=== PATIENT | female | born 1980 | race Caucasian/White ===

== ENCOUNTER → 2017-06-27 17:14 | Outpatient (CLI) | payer BC, SELFPAY ==
[2017-06-27 19:07] LABS: Chlamydia Trachomatis by PCR Negative (Negative); Neisserai gonorrhoeae by PCR Negative (Negative); Probe Check PASS; Sample Adequacy Control PASS; Specimen Processing Control PASS
== END ==
PROVIDERS: Visit Provider Obstetrics & Gynecology
DX: Z34.90 Encounter for supervision of normal pregnancy, unspecified, unspecified trimester (principal)
CPT/HCPCS: 87086; 87088; 87491; 87591

== ENCOUNTER → 2017-07-24 12:13 | Outpatient (CLI) | payer BC, SELFPAY ==
[2017-07-24 14:26] LABS: Absolute Lymphocyte Count 2.11 X10^3/ul (0.83-4.51); Absolute Neutrophil Count 6.5 X10^3/uL (2.0-7.7); Basophil# 0.02 X10^3/uL; Basophil% 0.2 % (0-1); Eosinophil# 0.12 X10^3/uL; Eosinophils% 1.3 % (0-5); Hematocrit 40.7 % (37-47); Hemoglobin 13.6 g/dl (12.0-15.0); Lymphocyte # 2.11 X10^3/ul (4.0); Lymphocyte % 22.7 % (19-41); Mean Corp Hgb Conc 33.4 g/gl (32-36); Mean Corpuscular Volume 83.7 fL (81-99); Mean Platelet Vol. 10.4 fl (6.2-12.0); Monocyte# 0.49 X10^3/uL; Monocyte% 5.3 % (0-10); Neutrophil # 6.54 X10^3/uL (2.7-7.7); Neutrophil % 70.4 % (47-70); Platelet Count 285 K/mm3 (150-450); RBC Distribution Width CV 13.6 % (11.6-14.6); RBC Distribution Width SD 41.6 fl (35.1-43.9); Red Blood Count 4.86 M/mm3 (4.2-5.4); White Blood Count 9.3 K/mm3 (4.4-11.0)
[2017-07-24 14:27] LABS: POSITIVE COUNT NO; POSITIVE DIFFERENTIAL NO; POSITIVE MORPHOLOGY NO
[2017-07-25 09:47] LABS: HIV - WCH Non-Reactive (Nonreactive); Rubella IgG 70.6 IU/mL
[2017-07-25 12:13] LABS: HEPATITIS B SURFACE AG Negative (Negative)
[2017-07-27 03:47] LABS: Rapid Plasmin Reagin (RPR) NONREACTIVE (NONREACTIVE)
== END ==
PROVIDERS: Visit Provider Obstetrics & Gynecology
DX: Z34.90 Encounter for supervision of normal pregnancy, unspecified, unspecified trimester (principal)
CPT/HCPCS: 36415; 85025; 86592; 86703; 86762; 86850; 86900; 87340

== ENCOUNTER → 2017-08-31 15:33 | Outpatient (CLI) | payer BC, SELFPAY ==
--- NOTE | 2017-08-31 15:37 | US_ITS ---
STUDY: SECOND AND THIRD TRIMESTER OBSTETRICAL ULTRASOUND REASON FOR EXAM: Female, 37 years old. For anatomy. LMP: PARIS: 01/22/2018 TECHNIQUE: Transabdominal PRIOR ULTRASOUND: None. FINDINGS: There is a single intrauterine fetus. The fetus is in a transverse lie with the head on the maternal right side. There is demonstrated cardiac activity with a heart rate of 153 bpm. There is a normal amniotic fluid volume. The largest amniotic fluid pocket measures 3.9 x 3.6 cm. The placenta is anterior in location and is not low lying. There are Grade 0 placental changes. The cervix measures 4.6 cm in length. The bilateral adnexal regions are visualized BIOMETRY: BPD: 4.5 cm: 19 weeks, 4 days HC: 17.1 cm: 19 weeks, 5 days AC: 14.8 cm: 20 weeks, 1 days FL: 3.3 cm: 20 weeks, 2 days CI: 73% FL/BPD: 74% FL/AC: 22% HC/AC: 1.15 age by current US: 20 weeks, 0 days. PARIS by current US: 01/18/2018. Estimated weight: 333 grams, +/- 49 grams, 84 %. Age by provided PARIS: 19 weeks, 3 days. PARIS : . ANATOMY: Visualized. Gender: Female Cranium: lateral ventricles. choroid plexus. Posterior fossa/cisterna magna and cerebellar is not visualized due to position. face, nose and lips. Chest: 4-chamber heart. Abdomen/Pelvis: diaphragm. stomach. abdominal wall. cord insertion. 3 vessel cord. kidneys. bladder. Spine: cervical spine. thoracic spine. lumbar spine. sacrum. Extremities: bilateral upper extremities. bilateral lower extremities. US/OB Anatomy Scan IMPRESSION: 1. Single alive intrauterine line seen in a transverse position. 2. Estimated gestational age by current ultrasound: 20 weeks 0 day and PARIS: 01/18/2018. Based on clinical dates gestational age: 19 weeks 3 days and PARIS: 01/22/2018. 3. EFW: 333 g. 4. Unremarkable visualized anatomy. Electronically Signed: Suzi Mena MD at 10:44 EDT Tel , Service support ,
== END ==
PROVIDERS: Visit Provider Nurse Practitioner Women's Health
DX: Z34.90 Encounter for supervision of normal pregnancy, unspecified, unspecified trimester (principal)
CPT/HCPCS: 76805

== ENCOUNTER → 2017-09-28 11:14 | Outpatient (CLI) | payer BC, SELFPAY | PROVIDERS: Visit Provider Nurse Practitioner Women's Health | DX: Z34.90 Encounter for supervision of normal pregnancy, unspecified, unspecified trimester (principal) | CPT/HCPCS: 76816 ==

== ENCOUNTER → 2017-11-02 11:12 | Outpatient (CLI) | payer BC, SELFPAY ==
[2017-11-02 11:40] LABS: Absolute Lymphocyte Count 2.25 X10^3/ul (0.83-4.51); Absolute Neutrophil Count 8.2 X10^3/uL (2.0-7.7); Basophil# 0.03 X10^3/uL; Basophil% 0.3 % (0-1); Eosinophil# 0.19 X10^3/uL; Eosinophils% 1.7 % (0-5); Hematocrit 38.4 % (37-47); Hemoglobin 12.9 g/dl (12.0-15.0); Lymphocyte # 2.25 X10^3/ul (4.0); Lymphocyte % 19.8 % (19-41); Mean Corp Hgb Conc 33.6 g/gl (32-36); Mean Corpuscular Volume 86.3 fL (81-99); Monocyte# 0.68 X10^3/uL; Neutrophil # 8.17 X10^3/uL (2.7-7.7); Neutrophil % 71.6 % (47-70); POSITIVE COUNT NO; POSITIVE DIFFERENTIAL NO; POSITIVE MORPHOLOGY NO; Platelet Count 299 K/mm3 (150-450); RBC Distribution Width CV 13.8 % (11.6-14.6); RBC Distribution Width SD 42.8 fl (35.1-43.9); Red Blood Count 4.45 M/mm3 (4.2-5.4); White Blood Count 11.4 K/mm3 (4.4-11.0)
[2017-11-02 11:47] LABS: Glucose Challenge Gest 1H 50g 96 mg/dL (70-140)
== END ==
PROVIDERS: Visit Provider Obstetrics & Gynecology
DX: Z34.90 Encounter for supervision of normal pregnancy, unspecified, unspecified trimester (principal)
CPT/HCPCS: 36415; 82950; 85025

== ENCOUNTER 2017-12-19 10:00 | Outpatient (CLI) | payer BC, SELFPAY ==
[2017-12-19 10:27] LABS: Absolute Lymphocyte Count 1.88 X10^3/ul (0.83-4.51); Absolute Neutrophil Count 7.7 X10^3/uL (2.0-7.7); Basophil# 0.02 X10^3/uL; Basophil% 0.2 % (0-1); Eosinophil# 0.14 X10^3/uL; Eosinophils% 1.4 % (0-5); Hematocrit 42.3 % (37-47); Hemoglobin 13.9 g/dl (12.0-15.0); Lymphocyte # 1.88 X10^3/ul (4.0); Lymphocyte % 18.3 % (19-41); Mean Corp Hgb Conc 32.9 g/gl (32-36); Mean Corpuscular Hgb 28.8 pg (27.0-32.0); Mean Corpuscular Volume 87.6 fL (81-99); Mean Platelet Vol. 10.6 fl (6.2-12.0); Monocyte% 4.9 % (0-10); Neutrophil # 7.72 X10^3/uL (2.7-7.7); POSITIVE COUNT NO; POSITIVE DIFFERENTIAL NO; POSITIVE MORPHOLOGY NO; Platelet Count 271 K/mm3 (150-450); RBC Distribution Width CV 13.3 % (11.6-14.6); RBC Distribution Width SD 42.7 fl (35.1-43.9); Red Blood Count 4.83 M/mm3 (4.2-5.4); White Blood Count 10.3 K/mm3 (4.4-11.0)
[2017-12-19 10:49] LABS: Protein, Urine (Random) < 6.0 mg/dL (<11.9)
[2017-12-19 10:50] LABS: ALB/GLOB Ratio 0.6 RATIO (0.9-2.4); AST(SGOT) 12 U/L (15-37); Alanine Aminotransfer ALT/SGPT 15 U/L (13-56); Albumin, Serum 2.7 g/dL (3.2-5.0); Alkaline Phosphatase 110 U/L (45-117); Anion Gap 9 (5-15); BUN 7 mg/dL (7-18); BUN/Creat Ratio 10.8 RATIO (10-20); Calcium,Total 8.8 mg/dL (8.5-10.1); Chloride 101 mmol/L (98-107); Creatinine, Serum 0.65 mg/dL (0.55-1.02); EST Glomerular Filtration Rate 109 mL/min (>60); Est Glom Filt Rate - Afr Amer 132 mL/min (>60); Globulin 4.2 g/dL (2.2-4.2); Glucose 95 mg/dL (74-106); LDH 161 U/L (84-246); Potassium 3.8 mmol/L (3.5-5.1); Protein, Total 6.9 g/dL (6.4-8.2); Sodium Level 137 mmol/L (136-145); Uric Acid 4.2 mg/dL (2.6-6.0)
[2017-12-19 11:17] VITALS: BMI 37.5
--- NOTE | 2017-12-21 17:22 | OB.TRI.HP_ITS ---
- Problem List (1) Elevated blood pressure affecting in third trimester, antepartum Status: Acute (2) Status: Acute Qualifiers: Comment: genetic, carrier, and ntd screening declined. anatomy us normal. (3) History of delivery, currently Status: Acute Comment: h/o ltcs then 4 successful VBACs, plan this delivery (4) Supervision of normal Status: Acute Qualifiers: Comment: PRR 01/22/18 girl PC Mariano Vidal Cole, Sawyer, Magdy Jair History of Present Illness Date of Service: 12/19/17 Was patient seen by the physician?: No Reason For Visit: R/O PRE E Date of Service: 12/19/17 History of Present Illness: elevated bp Allergies Iodinated Contrast- Oral and IV Dye [Iodinated Contrast Media - IV Dye] Allergy (Verified 12/19/17 11:20) Unknown naproxen sodium [From Aleve] Allergy (Verified 12/19/17 11:20) Unknown unknown reaction to Aleve - Pertinent Past Medical History Medical History: Past Medical History (Last Reviewed 12/19/17 @ 10:29 by Roseline Perez) Anxiety with depression Surgical History: Past Surgical History (Last Reviewed 12/03/17 @ 11:11 by Vicky Chung) delivery delivered H/O dilation and curettage Laboratory Studies: Laboratory Tests 12/19/17 12/19/17 12/19/17 Range/Units 10:12 10:04 10:04 WBC 10.3 (4.4-11.0) K/mm3 RBC 4.83 (4.2-5.4) M/mm3 Hgb 13.9 (12.0-15.0) g/dl Hct 42.3 (37-47) % MCV 87.6 (81-99) fL MCH 28.8 (27.0-32.0) pg MCHC 32.9 (32-36) g/gl RDW 13.3 (11.6-14.6) % RDW Differential 42.7 (35.1-43.9) fl Plt Count 271 (150-450) K/mm3 MPV 10.6 (6.2-12.0) fl Immature Gran % (Auto) 0.200 (0.0-0.9) % Neut % (Auto) 75.0 H (47-70) % Lymph % (Auto) 18.3 L (19-41) % [place] % (Auto) 4.9 (0-10) % Eos % (Auto) 1.4 (0-5) % Baso % (Auto) 0.2 (0-1) % Absolute Neuts (auto) 7.7 (2.0-7.7) X10^3/uL Absolute Lymphs (auto) 1.88 (0.83-4.51) X10^3/ul Total Counted Not Reportable Sodium 137 (136-145) mmol/L Potassium 3.8 (3.5-5.1) mmol/L Chloride 101 (98-107) mmol/L Carbon Dioxide 27.0 (21.0-32.0) mmol/L Anion Gap 9 (5-15) BUN 7 (7-18) mg/dL Creatinine 0.65 (0.55-1.02) mg/dL Est GFR (MDRD) Af Amer 132 (>60) mL/min Est GFR (MDRD) Non-Af 109 (>60) mL/min BUN/Creatinine Ratio 10.8 (10-20) RATIO Glucose 95 (74-106) mg/dL Uric Acid 4.2 (2.6-6.0) mg/dL Calcium 8.8 (8.5-10.1) mg/dL Total Bilirubin 0.30 (0.20-1.00) mg/dL AST 12 L (15-37) U/L ALT 15 (13-56) U/L Alkaline Phosphatase 110 (45-117) U/L Lactate Dehydrogenase 161 (84-246) U/L Total Protein 6.9 (6.4-8.2) g/dL Albumin 2.7 L (3.2-5.0) g/dL Globulin 4.2 (2.2-4.2) g/dL Albumin/Globulin Ratio 0.6 L (0.9-2.4) RATIO U Random Total Protein < 6.0 (<11.9) mg/dL Urine Creatinine 64.70 (NO RANGE EST.) mg/dL Protein/Creatinin Ratio TNP NST - FHR Rate Baby A Baseline: 130 Variability:: Moderate Accelerations:: 15 x 15 Decelerations:: None NST Reactive:: Yes FHR Category:: Category I Uterine Activity:: no regular ctx Impression/Plan elevate dbps- repeat WNL normal labs dc home
== END 2017-12-19 12:30 | disposition home or self-care (01) ==
LOC: PAVLAB 10:01 → WPOUT 11:08 → WP 11:09
PROVIDERS: Nurse Practitioner Women's Health; Referring Provider Obstetrics & Gynecology; Visit Provider Obstetrics & Gynecology
DX: O16.9 Unspecified maternal hypertension, unspecified trimester (principal); Z3A.00 Weeks of gestation of pregnancy not specified
CPT/HCPCS: 36415; 59025; 59050; 80053; 82570; 83615; 84156; 84550; 85025; 99218; G0378

== ENCOUNTER → 2017-12-24 11:45 | Outpatient (CLI) | payer BC, SELFPAY ==
[2017-12-24 11:31] VITALS: BMI 37.4
[2017-12-24 12:03] LABS: Absolute Lymphocyte Count 1.83 X10^3/ul (0.83-4.51); Absolute Neutrophil Count 6.5 X10^3/uL (2.0-7.7); Basophil# 0.02 X10^3/uL; Basophil% 0.2 % (0-1); Eosinophils% 1.1 % (0-5); Hematocrit 41.1 % (37-47); Hemoglobin 13.6 g/dl (12.0-15.0); Lymphocyte # 1.83 X10^3/ul (4.0); Lymphocyte % 19.7 % (19-41); Mean Corp Hgb Conc 33.1 g/gl (32-36); Mean Corpuscular Hgb 28.8 pg (27.0-32.0); Mean Corpuscular Volume 86.9 fL (81-99); Mean Platelet Vol. 10.5 fl (6.2-12.0); Monocyte% 8.6 % (0-10); Neutrophil # 6.54 X10^3/uL (2.7-7.7); Neutrophil % 70.3 % (47-70); POSITIVE COUNT NO; POSITIVE DIFFERENTIAL NO; POSITIVE MORPHOLOGY NO; Platelet Count 270 K/mm3 (150-450); RBC Distribution Width CV 13.1 % (11.6-14.6); RBC Distribution Width SD 41.8 fl (35.1-43.9); Red Blood Count 4.73 M/mm3 (4.2-5.4); White Blood Count 9.3 K/mm3 (4.4-11.0)
[2017-12-24 12:21] LABS: ALB/GLOB Ratio 0.7 RATIO (0.9-2.4); AST(SGOT) 15 U/L (15-37); Alanine Aminotransfer ALT/SGPT 16 U/L (13-56); Albumin, Serum 2.7 g/dL (3.2-5.0); Alkaline Phosphatase 114 U/L (45-117); Anion Gap 7 (5-15); BUN 6 mg/dL (7-18); BUN/Creat Ratio 9.7 RATIO (10-20); Calcium,Total 8.6 mg/dL (8.5-10.1); Chloride 106 mmol/L (98-107); Creatinine, Serum 0.62 mg/dL (0.55-1.02); EST Glomerular Filtration Rate 116 mL/min (>60); Est Glom Filt Rate - Afr Amer 141 mL/min (>60); Glucose 79 mg/dL (74-106); LDH 147 U/L (84-246); Potassium 4.1 mmol/L (3.5-5.1); Protein, Total 6.7 g/dL (6.4-8.2); Sodium Level 137 mmol/L (136-145); Uric Acid 4.3 mg/dL (2.6-6.0)
[2017-12-24 12:31] LABS: Protein, Urine (Random) 8.9 mg/dL (<11.9); Protein:Creat Ratio 79 mg/g CRE (0-200)
== END ==
PROVIDERS: Referring Provider Nurse Practitioner Women's Health; Visit Provider Nurse Practitioner Women's Health
DX: O16.3 Unspecified maternal hypertension, third trimester (principal); Z3A.00 Weeks of gestation of pregnancy not specified
CPT/HCPCS: 36415; 80053; 82570; 83615; 84156; 84550; 85025

== ENCOUNTER → 2017-12-24 15:48 | Outpatient (CLI) | payer BC, SELFPAY ==
[2017-12-24 11:31] VITALS: BMI 37.4
--- NOTE | 2017-12-24 13:30 | US_ITS ---
STUDY: SECOND AND THIRD TRIMESTER OBSTETRICAL ULTRASOUND - LIMITED REASON FOR EXAM: Female, 37 years old. growth. LMP: January 22, 2018. PRIOR ULTRASOUND: August 31, 2017 and September 28, 2017. TECHNIQUE: Transabdominal TECHNICAL QUALITY: Adequate. FINDINGS: There is a single intrauterine fetus. The fetus is in a cephalic presentation. There is demonstrated cardiac activity with a heart rate of 133 bpm. There is a normal amniotic fluid volume. The largest amniotic fluid pocket measures 6.07 cm. The amniotic fluid index (MARILU) is 12.61 cm. The placenta is anterior in location and is not low lying. There are Grade 2 placental changes. The cervix is obscured. BIOMETRY: BPD: 9.26 cm: 37 weeks, 5 days HC: 33.76 cm: 38 weeks, 6 days AC: 33.14 cm: 37 weeks, 1 days FL: 7.24 cm: 37 weeks, 1 days Age by LMP: 35 weeks, 6 days. PAR[place] by LMP: January 22, 2018. age by prior US: 36 weeks, 3 days. PARIS by prior US: January 18, 2018. age by current US: 37 weeks, 5 days. PARIS by current US: January 09, 2018. Estimated weight: 3174 grams, +/- 463 grams, 87 percentile. US/OB Limited With Biometrics IMPRESSION: 1. Live single intrauterine of 37 weeks, 5 days. PARIS is January 09, 2018. This is 9 days ahead of the initial ultrasound. 2. EFW of 3174 g. 3. MARILU of 12.61 cm. 4. Anterior grade 2 placenta. 5. Vertex presentation. Electronically Signed: Preston Carpio DO at 17:07 EST Tel [phone], Service support ,
== END ==
PROVIDERS: Referring Provider Nurse Practitioner Women's Health; Visit Provider Nurse Practitioner Women's Health
DX: O16.3 Unspecified maternal hypertension, third trimester (principal); Z3A.00 Weeks of gestation of pregnancy not specified
CPT/HCPCS: 76816

== ENCOUNTER → 2018-01-02 16:40 | Outpatient (CLI) | payer BC, SELFPAY ==
[2018-01-02 11:23] VITALS: BMI 37.4
--- OUTSIDE RECORDS SUMMARY | 2018-02-28 02:44 | XMS RPT_ITS ---
:1980 Author Organization OHIP Support Name Relationship Address Phone SANDEE WEST Unavailable [address] + [place] [address] FAUSTINO ANTUNEZ Unavailable Unavailable + UE Unavailable Unavailable Unavailable SANDEE WEST Unavailable [address] + [place] [address] FAUSTINO ANTUNEZ Unavailable Unavailable + UE Unavailable Unavailable Unavailable SANDEE WEST Unavailable [address] + [place] [address] FAUSTINO ANTUNEZ Unavailable Unavailable + UE Unavailable Unavailable Unavailable SANDEE WEST Unavailable [address] + [place] [address] FAUSTINO ANTUNEZ Unavailable Unavailable + UE Unavailable Unavailable Unavailable SANDEE WEST Unavailable [address] + [place] [address] FAUSTINO ANTUNEZ Unavailable . + ., [place] . UE Unavailable Unavailable Unavailable SANDEE WEST Unavailable [address] + [place] [address] FAUSTINO ANTUNEZ Unavailable . + ., [place] . UE Unavailable Unavailable Unavailable SANDEE WEST Unavailable [address] + [place] [address] FAUSTINO ANTUNEZ Unavailable Unavailable + UE Unavailable Unavailable Unavailable SANDEE WEST Unavailable [address] + [place] [address] FAUSTINO ANTUNEZ Unavailable Unavailable + UE Unavailable Unavailable Unavailable SANDEE WEST Unavailable [address] + [place] [address] FAUSTINO ANTUNEZ Unavailable . + [place] [address] UE Unavailable Unavailable Unavailable LEO, SANDEE Unavailable [address] + [place] [address] FAUSTINO ANTUNEZ Unavailable Unavailable + UE Unavailable Unavailable Unavailable LEO, SANDEE Unavailable [address] + [place] [address] NAYMFAUSTINO BHAT Unavailable . + [place] [address] UE Unavailable Unavailable Unavailable LEO, SANDEE Unavailable [address] + [place] [address] FAUSTINO ANTUNEZ Unavailable . + [place] [address] UE Unavailable Unavailable Unavailable LEO, SANDEE Unavailable [address] + [place] [address] FAUSTINO ANTUNEZ Unavailable Unavailable + [place] [address] UE Unavailable Unavailable Unavailable LEO, SANDEE Unavailable [address] + [place] [address] FAUSTINO ANTUNEZ Unavailable . + [place] [address] UE Unavailable Unavailable Unavailable LEO, SANDEE Unavailable [address] + [place] [address] FAUSTINO ANTUNEZ Unavailable . + [place] [address] UE Unavailable Unavailable Unavailable LEO, SANDEE Unavailable [address] + [place] [address] FAUSTINO ANTUNEZ Unavailable . + [place] [address] UE Unavailable Unavailable Unavailable LEO, SANDEE Unavailable [address] + [place] [address] NAFAUSTINO FRY Unavailable . + [place] [address] UE Unavailable Unavailable Unavailable LEO, SANDEE Unavailable [address] + [place] [address] FAUSTINO ANTUNEZ Unavailable . + [place] [address] UE Unavailable Unavailable Unavailable LEO, SANDEE Unavailable [address] + [place] [address] FAUSTINO ANTUNEZ Unavailable . + [place] [address] UE Unavailable Unavailable Unavailable LEO SANDEE Unavailable [address] + [place] [address] FAUSTINO ANTUNEZ Unavailable Unavailable + [place] [address] UE Unavailable Unavailable Unavailable LEO, SANDEE Unavailable [address] + [place] [address] FAUSTINO ANTUNEZ Unavailable . + [place] [address] UE Unavailable Unavailable Unavailable LEO, SANDEE Unavailable [address] + [place] [address] FAUSTINO ANTUNEZ Unavailable Unavailable + [place] [address] UE Unavailable Unavailable Unavailable LEO, SANDEE Unavailable [address] + [place] [address] FAUSTINO ANTUNEZ Unavailable . + [place] [address] UE Unavailable Unavailable Unavailable LEO, SANDEE Unavailable [address] + [place] [address] UE Unavailable Unavailable Unavailable LEO, SANDEE Unavailable [address] + [place] [address] UE Unavailable Unavailable Unavailable Care Team Providers Name Role Phone KAITLYN FERRARO (BELLPERSON) Attending Unavailable ELISHA FRANCISCO (OD) Attending Unavailable CHARBEL CABRERA Referring Unavailable Marcanthony, Evelin Attending Unavailable Marcanthony, Evelin Attending Unavailable Marcanthony, Evelin Referring Unavailable Marcanthony, Evelin Attending Unavailable Marcanthony, Evelin Attending Unavailable Marcanthony, Evelin Referring Unavailable Primay Care Physicia, No Primary Care Unavailable Northbrook, Mary Attending Unavailable Primay Care Physicia, No Referring Unavailable Nuria, Mary Attending Unavailable Northbrook, Mary Referring Unavailable Primay Care Physicia, No Primary Care Unavailable Northbrook, Mary Attending Unavailable Northbrook, Mary Referring Unavailable Primay Care Physicia, No Primary Care Unavailable Marcanthony, Evelin Attending Unavailable Primay Care Physicia, No Referring Unavailable Primay Care Physicia, No Primary Care Unavailable Marcanthony, Evelni Attending Unavailable Primay Care Physicia, No Referring Unavailable Marcanthony, Evelin Attending Unavailable Primay Care Physicia, No Primary Care Unavailable Marcanthony, Veelin Attending Unavailable Primay Care Physicia, No Referring Unavailable Northbrook, Mary Attending Unavailable Primay Care Physicia, No Referring Unavailable Primay Care Physicia, No Primary Care Unavailable Nuria, Mary Consulting Unavailable Marcanthony, Evelin Attending Unavailable Marcanthony, Evelin Referring Unavailable Northbrook, Mary Attending Unavailable Primay Care Physicia, No Referring Unavailable Northbrook, Mary Attending Unavailable Primay Care Physicia, No Referring Unavailable Marcanthony, Evelin Attending Unavailable Marcanthony, Evelin Referring Unavailable Primay Care Physicia, No Primary Care Unavailable Northbrook, Mary Consulting Unavailable Marcanthony, Evelin Consulting Unavailable Northbrook, Mary Attending Unavailable Primay Care Physicia, No Referring Unavailable Nuria, Mary Attending Unavailable Nuria, Mary Referring Unavailable Primay Care Physicia, No Primary Care Unavailable Northbrook, Mary Attending Unavailable Nuria, Mary Referring Unavailable Primay Care Physicia, No Primary Care Unavailable Marcanthony, Evelin Attending Unavailable Primay Care Physicia, No Referring Unavailable Marcanthony, Evelin Attending Unavailable Primay Care Physicia, No Primary Care Unavailable Marcanthony, Evelin Referring Unavailable Marcanthony, Evelin Attending Unavailable Marcanthony, Evelin Referring Unavailable Primay Care Physicia, No Primary Care Unavailable Marcanthony, Evelin Admitting Unavailable Marcanthony, Evelin Admitting Unavailable Marcanthony, Evelin Attending Unavailable Marcanthony, Evelin Referring Unavailable Primay Care Physicia, No Primary Care Unavailable Marcanthony, Evelin Consulting Unavailable Marcanthony, Evelin Admitting Unavailable Marcanthony, Evelin Attending Unavailable Marcanthony, Evelin Referring Unavailable Primay Care Physicia, No Primary Care Unavailable Marcanthony, Evelin Consulting Unavailable Marcanthony, Evelin Admitting Unavailable Marcanthony, Evelin Attending Unavailable Marcanthony, Evelin Referring Unavailable Primay Care Physicia, No Primary Care Unavailable Marcanthony, Evelin Consulting Unavailable PROBLEMS PROBLEMS DATE TYPE CONDITION / CODE ATTENDING STATUS SOURCE 01/03/2018 Unknown Z34.90 - Marcanthony, Active [place] Encounter for Evelin [facility] normal , Repository unspecified, unspecified trimester / Z34.90(ICD-10) 01/02/2018 Unknown O34.219 - Marcanthony, Active [place] Maternal care for [facility] unspecified type Hospital scar from Repository previous delivery / O34.219(ICD-10) 01/02/2018 Unknown Z34.83 - Marcanthony, Active [place] Encounter for [facility] other normal Repository , third trimester / Z34.83(ICD-10) 01/02/2018 Unknown Z3A.35 - 35 weeks Marcanthony, Active [place] gestation of [facility] / Hospital Z3A.35(ICD-10) Repository 01/02/2018 Unknown O16.3 - Marcanthony, Active [place] Unspecified [facility] hypertension, Repository third trimester / O16.3(ICD-10) 11/16/2017 Unknown Z3A.30 - 30 weeks Marcanthony, Active [place] gestation of [facility] / Hospital Z3A.30(ICD-10) Repository 09/28/2017 Unknown Z34.82 - Marcanthony, Active [place] Encounter for [facility] other normal Repository , second trimester / Z34.82(ICD-10) 09/28/2017 Unknown Z3A.23 - 23 weeks Marcanthony, Active [place] gestation of [facility] / Hospital Z3A.23(ICD-10) Repository 07/24/2017 Unknown Z3A.14 - 14 weeks Marcanthony, Active [place] gestation of [facility] / Hospital Z3A.14(ICD-10) Repository 06/27/2017 Unknown Z34.81 - Marcanthony, Active [place] Encounter for [facility] other normal Repository , first trimester / Z34.81(ICD-10) 05/08/2017 Active Unknown / BUZZ, KAITLYN Active [facility] UNK(Unknown) (BELLPERSON) [facility] [place] Repository PROCEDURES PROCEDURES No Procedure Records FoundRESULTS RESULTS DISCHARGE INSTRUCTION Observed: 01/05/2018 Status: F Source: [place] 12:45 [facility] Medical Records Department [address] [place] [address] Instructions for Home/Discharge Instructions 01/05/18 0045 MR#: [id number] Acct: [id number] Name: JUSTYN WEST Rep #: [id number] : 1980 37 From: Evelin Hart MD PCP: Care Physician, No Primary Status: ADM IN Discharge Diet: No Restrictions Discharge Activity: Return to Normal Activity, May not drive while taking narcotic pain medications., May Shower May resume sexual activity in: 4-6 weeks Call your doctor if your incision/area has: Continuous Slow Oozing, Sudden Increased Bleeding, Increased Pain/ Swelling, Increased Redness, Foul Smelling Discharge Additional Instructions: If you experience any of the following, contact your healthcare provider. * Bleeding that soaks a pad every hour for 2 hours * Fever 100.4 or higher * Unrelieved incision or abdominal pain * Swelling, redness, discharge or bleeding from your incision or episiotomy site * Your incision begins to separate * Problems urinating (including inability to urinate or burning while urinating). * Visual changes * Severe headache * Flu-like symptoms * Pain or redness in one of both of your breasts * Pain, warmth, tenderness or swelling in your legs, especially the calf area * Frequent nausea and vomiting * Symptoms of depression or anxiety If you experience any of the following, call 911 or go to the nearest Emergency Room. * Chest pain * Problems breathing * Seizure activity * Partial or complete paralysis of a body part, slurred speech, weakness or drooping of the face, or a sudden inability to walk or hold your balance Allergies/Adverse Reactions: Allergies Iodinated Contrast- Oral and IV Dye [Iodinated Contrast Media - IV Dye] Allergy (Verified 01/02/18 11:22) Unknown naproxen sodium [From Aleve] Allergy (Verified 01/02/18 11:22) Unknown unknown reaction to Aleve Medications to take at Discharge Oxybutynin Chloride [Ditropan Xl] 10 mg PO DAILY 01/19/13 blood pressure monitor kit See Dose Instructions .ROUTE .MEDSUPPLY #1 ea 12/24/17 Sertraline HCl [Zoloft] 50 mg PO QDAY 01/03/18 Please Follow Up With: Evelin Hart MD - [phone] When: Call to make an appointment with your doctor in 6 weeks. If you had elevated Blood pressure or 4th degree laceration you will need to be seen in 2 weeks. Primary Care Physician: Care Physician,No Primary [Primary Care Provider] - Test Results: Test results from this visit will be discussed in further detail at your follow-up appointment, if applicable. 01/05/18 0045 <Electronically signed by Evelin Hart MD> Date Evelin Hart MD CC: No Primary Care Physician PLACENTA Observed: 01/04/2018 Status: F Source: [place] 1:06 AM [facility] [place] Patient: JUSTYN WEST : 1980 (37/F) Acct Num: [id number] Phys: Evelin Hart MD Unit Num: [id number] Loc: WP [id number] Specimen: [id number] Received: 01/04/1812 Spec Type: PLACENTA TISSUES 1 TISSUES: Placenta, NOS GROSS DESCRIPTION SPECIMEN: PLACENTA / CLINICAL INFORMATION: A. Weight: B. Gestational Age: C. Sex: PLACENTAL WEIGHT (POST FIXATION): 447 gm PLACENTAL DIMENSIONS: 17 x 16 x 3 cm PLACENTAL SHAPE: Usual ovoid PLACENTAL WEIGHT FOR GESTATIONAL AGE: Within 10-99th percentile MEMBRANES - Present A. Insertion: Marginal B. Site of rupture from edge: At edge of placental disc C. Color of membrane: Quiroz-sims D. Abnormalities: None UMBILICAL CORD - Present A. Color: Quiroz-sims B. Insertion: Eccentric C. Length: 32 cm D. Diameter: 1.6 cm E. Number of vessels: Three F. Abnormalities: None PLACENTAL DISC - Present A. Color of surface: Quiroz-sims B. surface abnormalities: None C. Maternal cotyledons: Intact with minimal tears D. Attached retro placental clot: No clot E. Cut surface: Dark red and spongy F. Lesions: Serial sections reveal a reddish-quiroz lesion measuring 1.5 cm in greatest dimension. G. Separate clot: Absent SECTIONS SUBMITTED: 1. Membrane roll and umbilical cord ( end notched) 2. Placental disc, and maternal surfaces, lesion 3. Placental disc, and maternal surfaces 4. Placental disc, and maternal surfaces AM:maribell 01/07/18 TC:2 CPT: 25112 HEADER OPERATION: Vaginal delivery PRE-OP DIAGNOSIS: Abnormal placental appearance TISSUE SUBMITTED: Placenta MICROSCOPIC DESCRIPTION Slides are reviewed. MICROSCOPIC DIAGNOSIS Gill placenta (447 gm): Umbilical cord - trivascular with no inflammation. Placental membranes - no significant pathologic change. Placental disc - organizing intraparenchymal hemorrhage, Sharif-Michel change and intravillous congestion. Mildly increased intraparenchymal and fibrin plaques and focal acute deciduitis. AM:maribell 01/08/18 Signed Onofre Darwin 01/08/18 <signature on file> Performed By: #### PPLAC #### [facility] [address] [place], [address] OPERATIVE REPORT Observed: 01/04/2018 Status: F Source: [place] 1:05 [facility] [place] [facility] Medical Records Department [address] [place] [address] Operative Report 01/04/18 0103 MR#: [id number] Acct: [id number] Name: JUSTYN WEST Rep #: [id number] : 1980 37 From: Evelin Hart MD PCP: Care Physician, No Primary Status: ADM IN Location: DR653-1 - Problem List (1) SROM (spontaneous rupture of membranes) Status: Acute (2) Status: Acute Qualifiers: Comment: genetic, carrier, and ntd screening declined. anatomy us normal. (3) History of delivery, currently Status: Acute Comment: h/o ltcs then 4 successful VBACs, plan this delivery (4) Supervision of normal Status: Acute Qualifiers: Comment: PRR 01/22/18 girl PC Mariano Vidal Cole, Sawyer, Rafe Sandee Vaginal Delivery Maternal Presentation: Active Labor, Spontaneous Rupture of Membranes 37-year-old at 37 weeks 2 days presents with spontaneous rupture of membranes in active labor. Amniotic Membrane Rupture Type: Spontaneous at home Amniotic Fluid Description: Clear Final [place]IS: 01/22/18 Gestational age: 37 Weeks and 3 Days Date of Procedure: 01/04/18 Pre-Operative Diagnosis: In active labor Post-Operative Diagnosis: Same Surgery/ Procedure Performed: Spontaneous Vaginal Delivery Type of Anesthesia: Epidural Description of Procedure: Patient began pushing and delivered the head in the THAO presentation. The head was delivered atraumatically. The anterior and posterior shoulders delivered without complication followed by the rest of the infant and the was placed on the maternal abdomen. Delayed cord clamping was employed for approximately 60 seconds. Cord was clamped and cut and gentle traction was applied to the cord and the placenta delivered spontaneously immediately following it was noted to be intact with three-vessel cord. The perineum and vagina were inspected and noted to have no laceration. EBL was 200 cc. Patient and infant tolerated delivery well. Presentation: THAO Placental Delivery Description: Spontaneous Placenta Disposition: [facility] Cord Vessel Description: 3 Vessels Cord Entanglement: None Estimated Blood Loss: 200 A gender: Female Episiotomy Description: None Laceration: None Medications given after delivery: IV Pitocin Complications: None 01/04/18 010 <Electronically signed by Evelin Hart MD> Date Evelin Hart MD CC: No Primary Care Physician; Evelin Hart MD Signed PATHOLOGY SPECIMEN OB Collected: 01/04/2018 Status: F Source: [place] 12:51 AM [facility] [place] Order Comment: Reason for Laboratory Test Placenta for lab studies Send Specimen For (Specify): Studies @ [facility] Lab:Routine Time of Procedure: 105 Date of Procedure: 01/04/18 Reason specimen being sent to pathology (Hx/complications): abnormal placental appearance Type of specimen: Placenta Type of procedure performed: Other TYPE CODE TESTS RESULT OUT OF RANGE REFERENCE UNITS LAB L350.1800 SEE Normal PATH. PATHOLOGY Spec. OB REPORT Result Comment: Specimen submitted to Anatomical Pathology Department for testing. Performed By: #### L350.1800 #### [facility] [address] [place], [address] HISTORY AND PHYSICAL Observed: 01/03/2018 Status: F Source: [place] EXAM 9:19 PM [facility] [place] [facility] Medical Records Department [address] [place] [address] History and Physical 01/03/182112 MR#: [id number] Acct: [id number] Name: JUSTYN WEST Rep #: [id number] : 1980 37 From: Evelin Hart MD PCP: Care Physician, No Primary Status: ADM IN Y Location: [place] [id number] - Problem List (1) SROM (spontaneous rupture of membranes) Status: Acute (2) Status: Acute Qualifiers: Comment: genetic, carrier, and ntd screening declined. anatomy us normal. (3) History of delivery, currently Status: Acute Comment: h/o ltcs then 4 successful VBACs, plan this delivery (4) Supervision of normal Status: Acute Qualifiers: Comment: PRR 01/22/18 girl PC Mariano Vidal Cole, Sawyer, Magdy Sandee History Date of Admission: 01/03/18 Final [place]: 01/22/18 Gestational age: 37 Weeks and 2 Days History of this : This is a 37 year-old, at 37 weeks gestational age presents with SROM clear fluid. she has had irregular contractions. she has had a healthy uncomplicated . she has a history of 4 successful vbacs. Medical History: Medical History (Last Reviewed 01/02/18 @ 11:23 by Roseline Perez) Anxiety with depression F41.8 Surgical History: Surgical History (Last Reviewed 01/02/18 @ 11:23 by Roseline Perez) delivery delivered O82 H/O dilation and curettage Z98.890 Allergies Iodinated Contrast- Oral and IV Dye [Iodinated Contrast Media - IV Dye] Allergy (Verified 01/02/18 11:22) Unknown naproxen sodium [From Aleve] Allergy (Verified 01/02/18 11:22) Unknown unknown reaction to Aleve Home Medications: Home Medications Oxybutynin Chloride [Ditropan Xl] 10 mg PO DAILY 01/19/13 blood pressure monitor kit See Dose Instructions .ROUTE .MEDSUPPLY #1 ea 12/24/17 Sertraline HCl [Zoloft] 50 mg PO QDAY 01/03/18 Smoking Status: Former smoker Alcohol: None Number of Fetus(es): 1 Heart Tracing: fht 140s moderate variability reactive no decels. cat I tracing TOCO Analysis: q 3-6 History Past Pregnancies: first one was a c section and 4 subsequent vbacs Labs: Mom's Problem List Problem Status Onset Code SROM (spontaneous rupture of membranes) Acute Mom's Labs AND Results WBC 12.0 H RBC 4.92 Hgb 14.3 Hct 42.0 MCV 85.4 MCH 29.1 MCHC 34.0 RDW 13.1 RDW Differential 40.8 WBC RBC Hgb Hct Course Did the patient receive Yes care? Labs Blood Type: O Current Obstetrical History Gestational Diabetes No Incompetent Cervix No Infertility No IUGR No Macrosomia No Hypertension/Pre-eclampsia Yes: lab test normal Placenta Previa/Abruption No PTL/PROM No Uterine anomaly No Oligohydramnios No Polyhydramnios No Multiple gestation No Past Medical History Asthma No Diabetes No Hypertension No Heart disease No Mitral valve prolapse No Neurologic/Seizure disorder/ No Migraines Kidney disease No Liver disease No Varicosities No Clotting disorders/Hx of DVT No Thyroid Dysfunction No Other medical diseases No Psychiatric disorders Yes: anxiety, depression Major trauma No Abnormal PAP smear No Sleep apnea No Mammogram in the last 2 years No Social History Marital Status: Alleged father [place] Hx Smoking Yes Smoking Status Former smoker Expected Delivery Method: Review of Systems Constitutional: Denies: Fever, Malaise Eyes: Denies: Blurred vision, Vision Change HEENT: Denies: Head Aches, Visual Changes Cardiovascular: Denies: Chest Pain, Palpitations Respiratory: Denies: Cough, Shortness of Breath, Wheezing Gastrointestinal: Denies: Abdominal Pain, Diarrhea, Nausea, Vomiting Genitourinary: Denies: Dysuria, Hematuria Musculoskeletal: Denies: Joint Pain, Muscle pain Skin: Denies: Lesions, Rash Neurological: Denies: Blurred vision, Focal weakness, Headaches Psychiatric: Denies: Anxiety, Depression Endocrine: Denies: Heat/ Cold Intolerance Hematologic/ Lymphatic: Denies: Easy Bruising, Easy Bleeding Physical Exam General: Alert, Cooperative, No apparent distress HEENT: Atraumatic, Normocephalic. Negative for: Thyromegaly, Lymphadenopathy Cardiovascular: Regular rate Lungs: Normal air movement Abdomen: Soft, Non Tender, Gravid Neurological: Deep Tendon Reflexes 2+/4 and Symmetrical, Neuro grossly intact. Negative for: Clonus [employer] SALES COORDINATOR: Normal external genitalia. Negative for: Vulvar lesions Estimated gestational size: Appropriate for gestational size Presentation: Cephalic Assessment/Plan All Active Problems (Last Reviewed 01/02/18 @ 11:23 by Roseline Perez) Elevated blood pressure affecting in third trimester, antepartum (Acute) SROM (spontaneous rupture of membranes) (Acute) (Acute) History of delivery, currently (Acute) Supervision of normal (Acute) This is a 37 year-old, at 37 weeks gestational age presents IAL srom clear fluid plan Pit now for minimal cervical change in several hours iupc placed epi being placed gbs positive start pcn 01/03/182118 <Electronically signed by Evelin Hart MD> Date Evelin Hart MD Cosigner Signature: Date (if applicable) CC: No Primary Care Physician; Evelin Hart MD Signed CBC-COMPLETE BLOOD CNT Collected: 01/03/2018 Status: F Source: [place] NO DIFF 4:45 PM [facility] [place] TYPE CODE TESTS RESULT OUT OF RANGE REFERENCE UNITS LAB L100.1000 4.4-11.0 K/mm3 High WBC 12.0 LAB L100.1200 4.2-5.4 M/mm3 Normal RBC 4.92 LAB L100.1300 12.0-15.0 g/dl Normal HGB 14.3 LAB L100.1400 37-47 % Normal HCT 42.0 LAB L100.1500 81-99 fL Normal MCV 85.4 LAB L100.1600 27.0-32.0 pg Normal MCH 29.1 LAB L100.1700 32-36 g/gl Normal MCHC 34.0 LAB L100.1810 11.6-14.6 % Normal RDW CV 13.1 LAB L100.1820 35.1-43.9 fl Normal RDW SD 40.8 LAB L100.1900 150-450 K/mm3 Normal PLT 269 LAB L100.2000 6.2-12.0 fl Normal MPV 10.6 Performed By: #### L100.0500 #### [facility] [address] [place], [place], [id number] TYPE AND SCREEN Collected: 01/03/2018 Status: F Source: [place] 4:45 PM [facility] [place] Order Comment: Reason for Type AND Screen/Red Cells: ROUTINE TYPE CODE TESTS RESULT OUT OF RANGE REFERENCE UNITS LAB B10.0800 O Normal BLOOD TYPE GEL POSITIVE LAB B100.4000 Normal Antibody NEGATIVE Screen Performed By: #### B101.7450 #### [facility] [address] [place], [address] GROUP B STREP DNA Collected: 01/03/2018 Status: F Source: [place] BY PCR 4:45 PM [facility] [place] TYPE CODE TESTS RESULT OUT OF REFERENCE UNITS RANGE LAB L8200.0100 Negative High GBS TEST POSITIVE RESULT Result Comment: Penicillin is the recommended antibiotic for the treatment of Group B Streptococcal disease. In case of penicillin allergy, susceptibility testing for Clindamycin and Erythromycin is suggested by request. Performed By: #### L8200.0000 #### [facility] [place], [place], [id number] (ROM) RUPTURE OF Collected: 01/03/2018 Status: F Source: [place] [facility] 3[facility]40 PM [facility] [facility] REPOS[facility] TYPE CODE TESTS RESULT OUT OF REFERENCE UNITS RANGE LAB L205.1310 Negative High ROM POSITIVE Result Comment: Amniotic fluid present indicates rupture of Membranes. RESULTS CALLED TO MONIQUE 01/03/18 Joy Still. REPORT READ BACK BY SAME . Performed By: #### L205.1000 #### [facility] [address] [place], [place], [address] POLICY ANALYST OFFICE VISIT Observed: 01/02/2018 Status: F Source: [place] REPORT 11:52 AM [facility] [place] [facility] [place] [address] [place], [place] [address] OFFICE VISIT Date of Service: 01/02/18 MR#: [id number] Acct: [id number] Name: JUSTYN WEST Rep #: [id number] : 1980 Provider: Evelin Hart MD Age/Sex: 37/F Location: [facility] [place].[facility] Status: Signed Intake Vital Signs01/02/18 Body Mass Index (BMI) 37.4 01/02/18 Height 5 ft 4 in 01/02/18 Weight: 222 lb 4 oz 01/02/18 Body Mass Index (BMI) 38.1 01/02/18 Blood Pressure 110/84 H Intake Visit Reasons: 37 WEEK OB Chief Complaint: est ob Equipment Specialist Required: No Is patient in pain?: No Allergies Iodinated Contrast- Oral and IV Dye [Iodinated Contrast Media - IV Dye] Allergy (Verified 01/02/18 11:22) Unknown naproxen sodium [From Aleve] Allergy (Verified 01/02/18 11:22) Unknown Medications Oxybutynin Chloride [Ditropan Xl] 10 mg PO DAILY 01/19/13 [History Confirmed 01/02/18] sertraline 50 mg tablet 50 mg PO QDAY #30 tab 08/07/17 [Rx Confirmed 01/02/18] blood pressure monitor kit See Dose Instructions .ROUTE .MEDSUPPLY #1 ea 12/24/17 [Rx Confirmed 01/02/18] Last Menstral Period: 04/17/17 Zika: Zika virus screening: Negative : No PFSH PFSH Medical History Anxiety with depression (Acute) Surgical History delivery delivered (Acute) H/O dilation and curettage (Acute) Family History Unknown Diabetes Social History Smoking Status: Never smoker alcohol intake: never substance use type: does not use caffeine: Yes what type of physical activity do you participate in: walking seatbelt use: always do you feel safe at home: Yes additional social history: Mega Lindsay Patient is a stay at home mom Pregancy History 8 Elective abortions Hx Para 5 Spontaneous abortions Past Pregnancies Del. DateName GA/Weeks Outcome Route Bth WeighInfant GeLabor LgtAnesthesiDel LocatProvider FOB t n h a n HPI 37 WEEK OB: Details: JUSTYN WEST is a 37 year old who presents for routine OB visit. OB Visit PARIS Calculator Estimated Delivery Date 01/22/18 Based on LMP (certain) 04/17/17 Current WG 37w 1d Number 1 Expected Delivery Route/Plan Specific Issue/Plans flu vaccine: declines tdap vaccine: decline LARC form signed: declines labor support person: Sandee pain management: epidural cut cord/dad catch: yes : yes PP control planned: [] special requests: [] Initial Weight: 190 lb Date Weight BP Urine PrFHR FuHt Pres MoCTX DilationFetal StVisit NoProviderComments E ot v te GA G Effac lucose ed Visit Notes Visit Date: 01/02/18 bps reveiwed and normal- asymptomatic reviewed precautions no vb lof good fm nor egular ctx Evelin Hart MD on 01/02/18 Visit Date: 12/24/17 Headache but not enough to use tylenol. No VB, LOF. Good FM. No vision changes today. Much stress Mary Quiñones NP-C on 12/24/17 Visit Date: 12/21/17 Doing well. Off and on headache without vision changes. Good FM. No VB, LOF Mary Quiñones NP-C on 12/21/17 Visit Date: 12/19/17 Work in for elevated BP at home with headache X 3 days. Good FM, No VB, LOF Mary Quiñones NP-C on 12/19/17 Visit Date: 12/03/17 No Vb, LOF. Doing well Mary Quiñones NP-C on 12/03/17 Visit Date: 11/16/17 no vb lof good fm no regular ctx Evelin Hart MD on 11/16/17 Visit Date: 11/02/17 no vb lof good fm no regualr ctx cbc gct today Evelin Hart MD on 11/03/17 Visit Date: 09/28/17 no vb lof good fm no regualr ctx. Evelin Hart MD on 09/28/17 Visit Date: 08/21/17 Doing well. No VB, LOF. Rare event of sudden pain upper left abdomen when touched. No lump. Doesn't happen often. EVER Ayala on 08/21/17 Visit Date: 07/24/17 no vb lof pastora Hart MD on 07/24/17 Visit Date: 06/27/17 No visit notes to display ACOG First Trimester First Trimester: Desire for , Alcohol, Tobacco Cessation, Illicit/Recreational Drug/Substance Use, Intimate Partner Violence, Barriers to care, Unstable Housing, Communication Barriers, Environmental/Work Hazards, Anticipated Course of Care, Toxoplasmosis Precations, Use of Any medications, Sexual activity, Exercise, Dental Care, Sauna/Hot tub use, Seat Belt use, Childbirth classes/Hospital facilities, , Travel, Indications for US and Screening for Aneuploidy Diagnostics Diagnostics Labs Hct 41.1 % (37-47) 12/24/17 Hgb 13.6 g/dl (12.0-15.0) 12/24/17 Obstetrics Ultrasound 12/24/17 Glucose 1 Hr 50 gm 96 mg/dL (70-140) 11/02/17 Details: HIV: Urine Culture: Sequential Screen: NIPT Screen: Results [id number] Office Urine Glucose Negative Last Edit by Roseline Perez on 01/02/18 11:25 Office Urine Protein Negative Last Edit by Roseline Perez on 01/02/18 11:25 Assessment AND Plan Problems 1. History of delivery, currently O34.219 h/o ltcs then 4 successful VBACs, plan this delivery 2. 35 weeks gestation of Z3A.35 genetic, carrier, and ntd screening declined. anatomy us normal. 3. Encounter for supervision of other normal in third trimester Z34.83 PRR 01/22/18 girl PC Young, Mariano, Cristi Toure, Magdy Sandee Plan movement and labor precautions reviewed. ACOG trimester education reviewed and updated. see problem list details for updated plan management information and see below for orders placed at this visit. GA appropriate handout given. Orders Orders: Coding Level of Care Code OB Routine Diagnoses History of delivery, currently O34.219 35 weeks gestation of Z3A.35 Weeks of gestation: 35 weeks Encounter for supervision of other normal in third trimester Z34.83 Normal : other normal Trimester: third trimester 01/02/18 1152 <Electronically signed by Evelin Hart MD> Date Evelin Hart MD Cosigner Signature: Date (if applicable) CC: Observed: 01/02/2018 Status: F Source: [facility] CULTURE, GROUP B 12:00 AM [facility] REPOSIT[facility] Results called on 01/04/18-945 by REINA to NURSE LINE [phone]. Comments: VAGINAL RECTAL CAITLYN Culture ORGANISM 1: Streptococcus agalactiae (B) Amount Growth 3+ Streptococcus agalactiae (B): REACTION Ampicillin $ <=0.25 S Clindamycin $$ <=0.25 S Inducable Clindamycin Resistan - Linezolid $$$$ <=2 S Vancomycin $ 0.5 S (NF) indicates non-formulary drug at [facility]. Approval by Infectious Disease Specialist required before non-formulary drugs may be ordered and/or dispensed. * CLSI guidelines does not recommend testing of cephalosporins. This interpretation is deduced from Beta-lactam/penicillin results. Performed By: #### M100.1800 #### [facility] [address] [place], [address] OB LIMITED WITH Observed: 12/24/2017 Status: F Source: [facility] BIOMETRICS 3:46 PM [facility] [place] [facility] Imaging Services [address] [place] [address] OB Limited With Biometrics MR#: [id number] Acct: [id number] Name: JUSTYN WEST Ori Rep #: [id number] : 1980 F 37 From: Preston Carpio DO PCP: Care Physician, No Primary Status: REG CLI Study: OB Limited With Biometrics Date of Exam: 12/24/17 Exam# [id number] Ordering Dr: Mary Quiñones STUDY: SECOND AND THIRD TRIMESTER OBSTETRICAL ULTRASOUND - LIMITED REASON FOR EXAM: Female, 37 years old. growth. LMP: January 22, 2018. PRIOR ULTRASOUND: August 31, 2017 and September 28, 2017. TECHNIQUE: Transabdominal TECHNICAL QUALITY: Adequate. FINDINGS: There is a single intrauterine fetus. The fetus is in a cephalic presentation. There is demonstrated cardiac activity with a heart rate of 133 bpm. There is a normal amniotic fluid volume. The largest amniotic fluid pocket measures 6.07 cm. The amniotic fluid index (MARILU) is 12.61 cm. The placenta is anterior in location and is not low lying. There are Grade 2 placental changes. The cervix is obscured. BIOMETRY: BPD: 9.26 cm: 37 weeks, 5 days HC: 33.76 cm: 38 weeks, 6 days AC: 33.14 cm: 37 weeks, 1 days FL: 7.24 cm: 37 weeks, 1 days Age by LMP: 35 weeks, 6 days. PARIS by LMP: January 22, 2018. age by prior US: 36 weeks, 3 days. PARIS by prior US: January 18, 2018. age by current US: 37 weeks, 5 days. PARIS by current US: January 09, 2018. Estimated weight: 3174 grams, +/- 463 grams, 87 percentile. US/OB Limited With Biometrics IMPRESSION: 1. Live single intrauterine of 37 weeks, 5 days. PARIS is January 09, 2018. This is 9 days ahead of the initial ultrasound. 2. EFW of 3174 g. 3. MARILU of 12.61 cm. 4. Anterior grade 2 placenta. 5. Vertex presentation. Electronically Signed: Preston Carpio DO at 17:07 EST Tel [phone], Service support , CC: PAZ Quiñones; No Primary Care Physician Plating Tank Operator: Signed PROTEIN+CREATININE Collected: Status: F Source: [place] RATIO,URINE 12/24/2017 11:59 AM [facility] [place] TYPE CODE TESTS RESULT OUT OF RANGE REFERENCE UNITS LAB L501.1200 NO RANGE EST. mg/dL Normal UR CREAT 112.00 LAB L501.1930 <11.9 mg/dL Normal 8.9 PROTEIN,UR.R AN. LAB L501.1940 0-200 mg/g CRE Normal PROT:CRE 79 RATIO Performed By: #### L501.0900 #### [facility] [address] [place], [address] POLICY ANALYST OFFICE VISIT Observed: 12/24/2017 Status: F Source: [place] REPORT 11:51 AM [facility] [place] [facility] [address] [place] [address] OFFICE VISIT Date of Service: 12/24/17 MR#: [id number] Acct: [id number] Name: JUSTYN WEST Rep #: [id number] : 1980 Provider: PAZ Quiñones Age/Sex: 37/F Location: [facility] Status: Signed Intake Vital Signs12/24/17 Body Mass Index (BMI) 37.4 12/24/17 Height 5 ft 4 in 12/24/17 Weight: 218 lb 6 oz 12/24/17 Body Mass Index (BMI) 37.5 12/24/17 Blood Pressure 142/96 H Intake Visit Reasons: OB - BP CHECK, OK PER Equipment Specialist Required: No Is patient in pain?: No Allergies Iodinated Contrast- Oral and IV Dye [Iodinated Contrast Media - IV Dye] Allergy (Verified 12/24/17 11:31) Unknown naproxen sodium [From Aleve] Allergy (Verified 12/24/17 11:31) Unknown Medications Oxybutynin Chloride [Ditropan Xl] 10 mg PO DAILY 01/19/13 [History Confirmed 12/24/17] sertraline 50 mg tablet 50 mg PO QDAY #30 tab 08/07/17 [Rx Confirmed 12/24/17] blood pressure monitor kit See Dose Instructions .ROUTE .MEDSUPPLY #1 ea 12/24/17 [Rx Confirmed 12/24/17] Last Menstral Period: 04/17/17 Zika: Zika virus screening: Negative : No PFSH PFSH Medical History Anxiety with depression (Acute) Surgical History delivery delivered (Acute) H/O dilation and curettage (Acute) Family History Unknown Diabetes Social History Smoking Status: Never smoker alcohol intake: never substance use type: does not use caffeine: Yes what type of physical activity do you participate in: walking seatbelt use: always do you feel safe at home: Yes additional social history: Mega Lindsay Patient is a stay at home mom Pregancy History 8 Elective abortions Hx Para 5 Spontaneous abortions Past Pregnancies Del. DateName GA/Weeks Outcome Route Bth WeighInfant GeLabor LgtAnesthesiDel LocatProvider FOB t n h a n HPI OB - BP CHECK, OK PER MH: Details: JUSTYN WEST is a 37 year old who presents for routine OB visit. OB Visit PARIS Calculator Estimated Delivery Date 01/22/18 Based on LMP (certain) 04/17/17 Current WG 35w 6d Number 1 Expected Delivery Route/Plan Specific Issue/Plans flu vaccine: declines tdap vaccine: decline LARC form signed: declines labor support person: Sandee pain management: epidural cut cord/dad catch: yes : yes PP control planned: [] special requests: [] Initial Weight: 190 lb Date Weight BP Urine PrFHR FuHt Pres MoCTX DilationFetal StVisit NoProviderComments E ot v te GA G Effac lucose ed Visit Notes Visit Date: 12/24/17 Headache but not enough to use tylenol. No VB, LOF. Good FM. No vision changes today. Much stress FLASH AyalaC on 12/24/17 Visit Date: 12/21/17 Doing well. Off and on headache without vision changes. Good FM. No VB, LOF Mary Quiñones NP-C on 12/21/17 Visit Date: 12/19/17 Work in for elevated BP at home with headache X 3 days. Good FM, No VB, LOF EVER Ayala on 12/19/17 Visit Date: 12/03/17 No Vb, LOF. Doing well EVER Ayala on 12/03/17 Visit Date: 11/16/17 no vb lof good fm no regular ctx Evelin Hart MD on 11/16/17 Visit Date: 11/02/17 no vb lof good fm no regualr ctx cbc gct today Evelin Hart MD on 11/03/17 Visit Date: 09/28/17 no vb lof good fm no regualr ctx. Evelin Hart MD on 09/28/17 Visit Date: 08/21/17 Doing well. No VB, LOF. Rare event of sudden pain upper left abdomen when touched. No lump. Doesn't happen often. EVER Ayala on 08/21/17 Visit Date: 07/24/17 no vb lof cramping Evelin Hart MD on 07/24/17 Visit Date: 06/27/17 No visit notes to display ACOG First Trimester First Trimester: Desire for , Alcohol, Tobacco Cessation, Illicit/Recreational Drug/Substance Use, Intimate Partner Violence, Barriers to care, Unstable Housing, Communication Barriers, Environmental/Work Hazards, Anticipated Course of Care, Toxoplasmosis Precations, Use of Any medications, Sexual activity, Exercise, Dental Care, Sauna/Hot tub use, Seat Belt use, Childbirth classes/Hospital facilities, , Travel, Indications for US and Screening for Aneuploidy Diagnostics Diagnostics Labs Blood Type O POSITIVE 07/24/17 Antibody Screen NEGATIVE 07/24/17 Hct 42.3 % (37-47) 12/19/17 Hgb 13.9 g/dl (12.0-15.0) 12/19/17 Obstetrics Ultrasound 09/28/17 Rubella IgG Antibody 70.6 IU/mL 07/24/17 RPR NONREACTIVE (NONREACTIVE) 07/24/17 Hep Bs Antigen Negative (Negative) 07/24/17 Glucose 1 Hr 50 gm 96 mg/dL (70-140) 11/02/17 Details: HIV: Urine Culture: Sequential Screen: NIPT Screen: Results [id number] Office Urine Glucose Negative Last Edit by Rachel Toribio on 12/24/17 11:34 Office Urine Protein Negative Last Edit by Rachel Toribio on 12/24/17 11:34 Assessment AND Plan Problems 1. Elevated blood pressure affecting in third trimester, antepartum O16.3 2. Encounter for supervision of other normal in third trimester Z34.83 PRR 01/22/18 girl PC Young, Mariano, Mesfin, Cristi, Magdy Sandee 3. 35 weeks gestation of Z3A.35 genetic, carrier, and ntd screening declined. anatomy us normal. 4. History of delivery, currently O34.219 h/o ltcs then 4 successful VBACs, plan this delivery Plan Orders placed: Pre-E labs, growth US today. Home BP cuff and take daily-call if 2 readings >140/90. Also call if headache does not respond to tylenol or has vision changes. Reviewed of labor precautions, movement/kick counts ACOG trimester education reviewed and updated See problem list details for updated plan of care Gestational age appropriate handout given of grandmother and has calling hours tomorrow and 12/26:much stress, tearful. RTO: dependant on above. Orders Orders: Medications New: Coding Level of Care Code OB Routine Diagnoses Elevated blood pressure affecting in third trimester, antepartum O16.3 Encounter for supervision of other normal in third trimester Z34.83 Normal : other normal Trimester: third trimester 35 weeks gestation of Z3A.35 Weeks of gestation: 35 weeks History of delivery, currently O34.219 12/24/17 1151 <Electronically signed by Mary CURTIS> Date Mary VIDALESC Cosigner Signature: Date (if applicable) CC: CBC W/DIFF, AUTOMATED Collected: 12/24/2017 Status: F Source: [place] 11:50 AM [facility] [place] TYPE CODE TESTS RESULT OUT OF RANGE REFERENCE UNITS LAB L100.1000 4.4-11.0 K/mm3 Normal WBC 9.3 LAB L100.1200 4.2-5.4 M/mm3 Normal RBC 4.73 LAB L100.1300 12.0-15.0 g/dl Normal HGB 13.6 LAB L100.1400 37-47 % Normal HCT 41.1 LAB L100.1500 81-99 fL Normal MCV 86.9 LAB L100.1600 27.0-32.0 pg Normal MCH 28.8 LAB L100.1700 32-36 g/gl Normal MCHC 33.1 LAB L100.1810 11.6-14.6 % Normal RDW CV 13.1 LAB L100.1820 35.1-43.9 fl Normal RDW SD 41.8 LAB L100.1900 150-450 K/mm3 Normal PLT 270 LAB L100.2000 6.2-12.0 fl Normal MPV 10.5 LAB L100.2100 47-70 % High NEUT% 70.3 LAB L100.2200 19-41 % Normal LY% 19.7 LAB L100.2300 0-10 % Normal MONO% 8.6 LAB L100.2400 0-5 % Normal EO% 1.1 LAB L100.2500 0-1 % Normal BASO% 0.2 LAB L100.2550 0.0-0.9 % Normal IM GRAN % 0.100 Result Comment: IG% - Immature Granulocytes (promyelocytes, myelocytes and metamyelocytes) > 1% indicates that a LEFT SHIFT is Present. LAB L100.2620 2.0-7.7 X10 3/uL Normal Absolute Neut 6.5 LAB L100.2720 0.83-4.51 X10 3/ul Normal Absolute Lymph 1.83 Performed By: #### L100.0100 #### [facility] [place], [place], [address] COMPREHENSIVE METABOLIC Collected: 12/24/2017 Status: F Source: [place] GARZA 11:50 AM [facility] [place] Order Comment: Serial Specimen #1, #2 or #3? 1 TYPE CODE TESTS RESULT OUT OF RANGE REFERENCE UNITS LAB L501.0100 74-106 mg/dL Normal GLU 79 Result Comment: Please note revised GLUCOSE reference range effective 2017. LAB L501.1000 7-18 mg/dL Low BUN 6 LAB L501.1100 0.55-1.02 mg/dL Normal CREAT,SERUM 0.62 Result Comment: The validity of the calculated GFR AND GFRAA in patients over 70 years has not been determined. Clinical correlation is essential. LAB L501.1110 >60 mL/min Normal EST GFR 116 Result Comment: Non- GFR Calc LAB L501.1115 >60 mL/min Normal EST GFR - AA 141 Result Comment: GFR Calc LAB L501.1300 10-20 RATIO Low BUN/CRE 9.7 LAB L501.1500 6.4-8.2 g/dL Normal T PROT 6.7 LAB L501.1800 3.2-5.0 g/dL Low ALB 2.7 LAB L501.1950 2.2-4.2 g/dL Normal GLOB 4.0 LAB L501.2000 0.9-2.4 RATIO Low A/G 0.7 LAB L501.2200 8.5-10.1 mg/dL Normal CA 8.6 LAB L501.4100 15-37 U/L Normal AST 15 LAB L501.4305 45-117 U/L Normal ALK P 114 LAB L501.4405 13-56 U/L Normal ALT 16 LAB L501.4600 0.20-1.00 mg/dL Normal T BILI 0.20 LAB L501.5300 136-145 mmol/L Normal NA 137 LAB L501.5600 3.5-5.1 mmol/L Normal K 4.1 LAB L501.5900 98-107 mmol/L Normal CL 106 LAB L501.6100 21.0-32.0 mmol/L Normal CO2 24.0 LAB L501.6200 5-15 Normal GAP 7 Performed By: #### L500.4050, L501.1400, L504.2610 #### [facility] [address] [place], [place], [id number] URIC ACID Collected: 12/24/2017 Status: F Source: [place] 11:50 AM [facility] [place] [facility] Order Comment: Serial Specimen #1, #2 or #3? 1 TYPE CODE TESTS RESULT OUT OF RANGE REFERENCE UNITS LAB L501.1400 2.6-6.0 mg/dL Normal URIC 4.3 Result Comment: The drugs N-Acetylcysteine and Metamizole may falsely depress this assay. Performed By: #### L500.4050, L501.1400, L504.2610 #### [facility] [address] [place], [address] LDH Collected: 12/24/2017 Status: F Source: [place] 11:50 AM [facility] [place] [facility] Order Comment: Serial Specimen #1, #2 or #3? 1 TYPE CODE TESTS RESULT OUT OF RANGE REFERENCE UNITS LAB L504.2610 84-246 U/L Normal LDH 147 Performed By: #### L500.4050, L501.1400, L504.2610 #### [facility] [address] [place], [address] POLICY ANALYST OFFICE VISIT Observed: 12/21/2017 Status: F Source: [facility]ES REPORT 2:15 PM [facility] [place] [facility] [address] [place] [address] OFFICE VISIT Date of Service: 12/21/17 MR#: [id number] Acct: [id number] Name: JUSTYN WEST Ori Rep #: [id number] : 1980 Provider: PAZ Quiñones Age/Sex: 37/F Location: [facility] Status: Signed Intake Vital Signs12/21/17 Height 5 ft 4 in 12/21/17 Weight: 218 lb 12/21/17 Body Mass Index (BMI) 37.4 12/21/17 Blood Pressure 128/86 H Intake Visit Reasons: 35 WEEK OB Allergies Iodinated Contrast- Oral and IV Dye [Iodinated Contrast Media - IV Dye] Allergy (Verified 12/19/17 11:20) Unknown naproxen sodium [From Aleve] Allergy (Verified 12/19/17 11:20) Unknown Medications Oxybutynin Chloride [Ditropan Xl] 10 mg PO DAILY 01/19/13 [History Confirmed 12/19/17] sertraline 50 mg tablet 50 mg PO QDAY #30 tab 08/07/17 [Rx Confirmed 12/19/17] Last Menstral Period: 04/17/17 PFSH PFSH Medical History Anxiety with depression (Acute) Surgical History delivery delivered (Acute) H/O dilation and curettage (Acute) Family History Unknown Diabetes Social History Smoking Status: Never smoker alcohol intake: never substance use type: does not use caffeine: Yes what type of physical activity do you participate in: walking seatbelt use: always do you feel safe at home: Yes additional social history: Mega Lindsay Patient is a stay at home mom Pregancy History 8 Elective abortions Hx Para 5 Spontaneous abortions Past Pregnancies Del. DateName GA/Weeks Outcome Route Bth WeighInfant GeLabor LgtAnesthesiDel LocatProvider FOB t n h a n HPI 35 WEEK OB: Details: JUSTYN WEST is a 37 year old who presents for routine OB visit. OB Visit PARIS Calculator Estimated Delivery Date 01/22/18 Based on LMP (certain) 04/17/17 Current WG 35w 3d Number 1 Expected Delivery Route/Plan Specific Issue/Plans flu vaccine: declines tdap vaccine: decline LARC form signed: keeley labor support person: Sandee pain management: epidural cut cord/dad catch: yes : yes PP control planned: [] special requests: [] Initial Weight: 190 lb Date Weight BP Urine PrFHR FuHt Pres MoCTX DilationFetal StVisit NoProviderComments E ot v te GA G Effac lucose ed Visit Notes Visit Date: 12/21/17 Doing well. Off and on headache without vision changes. Good FM. No VB, LOF FLASH AyalaC on 12/21/17 Visit Date: 12/19/17 Work in for elevated BP at home with headache X 3 days. Good FM, No VB, LOF Mary Quiñones NP-C on 12/19/17 Visit Date: 12/03/17 No Vb, LOF. Doing well FLASH AyalaC on 12/03/17 Visit Date: 11/16/17 no vb lof good fm no regular ctx Evelin Hart MD on 11/16/17 Visit Date: 11/02/17 no vb lof good fm no regualr ctx cbc gct today Evelin Hart MD on 11/03/17 Visit Date: 09/28/17 no vb lof good fm no regualr ctx. Evelin Hart MD on 09/28/17 Visit Date: 08/21/17 Doing well. No VB, LOF. Rare event of sudden pain upper left abdomen when touched. No lump. Doesn't happen often. Mary Quiñones NP-C on 08/21/17 Visit Date: 07/24/17 no vb lof cramping Evelin Hart MD on 07/24/17 Visit Date: 06/27/17 No visit notes to display ACOG First Trimester First Trimester: Desire for , Alcohol, Tobacco Cessation, Illicit/Recreational Drug/Substance Use, Intimate Partner Violence, Barriers to care, Unstable Housing, Communication Barriers, Environmental/Work Hazards, Anticipated Course of Care, Toxoplasmosis Precations, Use of Any medications, Sexual activity, Exercise, Dental Care, Sauna/Hot tub use, Seat Belt use, Childbirth classes/Hospital facilities, , Travel, Indications for US and Screening for Aneuploidy Diagnostics Diagnostics Labs Blood Type O POSITIVE 07/24/17 Antibody Screen NEGATIVE 07/24/17 Hct 42.3 % (37-47) 12/19/17 Hgb 13.9 g/dl (12.0-15.0) 12/19/17 Obstetrics Ultrasound 09/28/17 Rubella IgG Antibody 70.6 IU/mL 07/24/17 RPR NONREACTIVE (NONREACTIVE) 07/24/17 Hep Bs Antigen Negative (Negative) 07/24/17 Chlam trachomat DNA PCR Negative (Negative) 06/27/17 N.gonorrhoeae DNA (PCR) Negative (Negative) 06/27/17 Glucose 1 Hr 50 gm 96 mg/dL (70-140) 11/02/17 Details: HIV: Urine Culture: Sequential Screen: NIPT Screen: Results [id number] Office Urine Glucose Negative Last Edit by Roseline Perez on 12/21/17 13:18 Office Urine Protein Negative Last Edit by Roseline Perez on 12/21/17 13:18 Assessment AND Plan Problems 1. Encounter for supervision of other normal in third trimester Z34.83 PRR 01/22/18 girl PC Mariano Vidal Cole, Sawyer, Rafe Sandee 2. History of delivery, currently O34.219 h/o ltcs then 4 successful VBACs, plan this delivery 3. 35 weeks gestation of Z3A.35 genetic, carrier, and ntd screening declined. anatomy us normal. Plan Orders placed: none Call with any persistent headache, vision changes or edema Reviewed of labor precautions, movement/kick counts ACOG trimester education reviewed and updated See problem list details for updated plan of care Gestational age appropriate handout given RTO: 4 days Orders Orders: Coding Level of Care Code OB Routine Diagnoses Encounter for supervision of other normal in third trimester Z34.83 Normal : other normal Trimester: third trimester History of delivery, currently O34.219 35 weeks gestation of Z3A.35 Weeks of gestation: 35 weeks 12/21/17 1415 <Electronically signed by Mary CURTIS> Date Mary CURTIS Cosigner Signature: Date (if applicable) CC: POLICY ANALYST OFFICE VISIT Observed: 12/19/2017 Status: F Source: [place] REPORT 11:06 AM [facility] [address] [place] [address] OFFICE VISIT Date of Service: 12/19/17 MR#: [id number] Acct: [id number] Name: JUSTYN WEST Ori Rep #: [id number] : 1980 Provider: PAZ Quiñones Age/Sex: 37/F Location: [facility] [place] Status: Signed Intake Vital Signs12/19/17 Height 5 ft 4.5 in 12/19/17 Weight: 219 lb 2 oz 12/19/17 Body Mass Index (BMI) 37.0 12/19/17 Blood Pressure 130/90 H H Intake Visit Reasons: OB - HIGH BP Chief Complaint: est ob, HTN Equipment Specialist Required: No Is patient in pain?: No Allergies Iodinated Contrast- Oral and IV Dye [Iodinated Contrast Media - IV Dye] Allergy (Verified 12/19/17 10:29) Unknown naproxen sodium [From Aleve] Allergy (Verified 12/19/17 10:29) Unknown Medications Oxybutynin Chloride [Ditropan Xl] 10 mg PO DAILY 01/19/13 [History Confirmed 12/19/17] sertraline 50 mg tablet 50 mg PO QDAY #30 tab 08/07/17 [Rx Confirmed 12/19/17] Last Menstral Period: 04/17/17 Zika: Zika virus screening: Negative : No PFSH PFSH Medical History Anxiety with depression (Acute) Surgical History delivery delivered (Acute) H/O dilation and curettage (Acute) Family History Unknown Diabetes Social History Smoking Status: Never smoker alcohol intake: never substance use type: does not use caffeine: Yes what type of physical activity do you participate in: walking seatbelt use: always do you feel safe at home: Yes additional social history: Mega Lindsay Patient is a stay at home mom Pregancy History 8 Elective abortions Hx Para 5 Spontaneous abortions Past Pregnancies Del. DateName GA/Weeks Outcome Route Bth WeighInfant GeLabor LgtAnesthesiDel LocatProvider FOB t n h a n HPI OB - HIGH BP: Details: JUSTYN WEST is a 37 year old who presents for routine OB visit. OB Visit [place] Calculator Estimated Delivery Date 01/22/18 Based on LMP (certain) 04/17/17 Current WG 35w 1d Number 1 Expected Delivery Route/Plan Specific Issue/Plans flu vaccine: declines tdap vaccine: decline LARC form signed: declines labor support person: Sandee pain management: epidural cut cord/dad catch: yes : yes PP control planned: [] special requests: [] Initial Weight: 190 lb Date Weight BP Urine PrFHR FuHt Pres MoCTX DilationFetal StVisit NoProviderComments E ot v te GA G Effac lucose ed Visit Notes Visit Date: 12/19/17 Work in for elevated BP at home with headache X 3 days. Good FM, No VB, LOF EVER Ayala on 12/19/17 Visit Date: 12/03/17 No Vb, LOF. Doing well EVER Ayala on 12/03/17 Visit Date: 11/16/17 no vb lof good fm no regular ctx Evelin Hart MD on 11/16/17 Visit Date: 11/02/17 no vb lof good fm no regualr ctx cbc gct today Evelin Hart MD on 11/03/17 Visit Date: 09/28/17 no vb lof good fm no regualr ctx. Evelin Hart MD on 09/28/17 Visit Date: 08/21/17 Doing well. No VB, LOF. Rare event of sudden pain upper left abdomen when touched. No lump. Doesn't happen often. EVER Ayala on 08/21/17 Visit Date: 07/24/17 no vb lof cramping Evelin Hart MD on 07/24/17 Visit Date: 06/27/17 No visit notes to display ACOG First Trimester First Trimester: Desire for , Alcohol, Tobacco Cessation, Illicit/Recreational Drug/Substance Use, Intimate Partner Violence, Barriers to care, Unstable Housing, Communication Barriers, Environmental/Work Hazards, Anticipated Course of Care, Toxoplasmosis Precations, Use of Any medications, Sexual activity, Exercise, Dental Care, Sauna/Hot tub use, Seat Belt use, Childbirth classes/Hospital facilities, , Travel, Indications for US and Screening for Aneuploidy Diagnostics Diagnostics Labs Blood Type O POSITIVE 07/24/17 Antibody Screen NEGATIVE 07/24/17 Hct 42.3 % (37-47) 12/19/17 Hgb 13.9 g/dl (12.0-15.0) 12/19/17 Pap Smear Negative 02/17/16 Obstetrics Ultrasound 09/28/17 Rubella IgG Antibody 70.6 IU/mL 07/24/17 RPR NONREACTIVE (NONREACTIVE) 07/24/17 Hep Bs Antigen Negative (Negative) 07/24/17 Chlam trachomat DNA PCR Negative (Negative) 06/27/17 N.gonorrhoeae DNA (PCR) Negative (Negative) 06/27/17 Glucose 1 Hr 50 gm 96 mg/dL (70-140) 11/02/17 Details: HIV: Urine Culture: Sequential Screen: NIPT Screen: Results [id number] Office Urine Glucose Negative Last Edit by Roseline Perez on 12/19/17 10:44 Office Urine Protein Negative Last Edit by Roseline Perez on 12/19/17 10:44 Assessment AND Plan Problems 1. Encounter for supervision of other normal in third trimester Z34.83 01/22/18 girl PC Young, Mesfin Quintana Sawyer, Magdy Sandee 2. Elevated BP without diagnosis of hypertension R03.0 3. History of delivery, currently O34.219 h/o ltcs then 4 successful VBACs, plan this delivery 4. 30 weeks gestation of Z3A.30 genetic, carrier, and ntd screening declined. anatomy us normal. Plan Pre E labs To for prolonged monitoring. Dr. Paulson notified Orders Orders: Coding Level of Care Code OB Routine Diagnoses Encounter for supervision of other normal in third trimester Z34.83 Normal : other normal Trimester: third trimester Elevated BP without diagnosis of hypertension R03.0 History of delivery, currently O34.219 30 weeks gestation of Z3A.30 Weeks of gestation: 30 weeks 12/19/17 1106 <Electronically signed by Mary CURTIS> Date Mary VIDALESC Cosigner Signature: Date (if applicable) CC: PROTEIN+CREATININE Collected: Status: F Source: [place] RATIO,URINE 12/19/2017 10:12 AM [facility] [place] TYPE CODE TESTS RESULT OUT OF RANGE REFERENCE UNITS LAB L501.1200 NO RANGE EST. mg/dL 64.70 Normal UR CREAT LAB L501.1930 <11.9 mg/dL < 6.0 Normal PROTEIN,UR. RAN. LAB L501.1940 0-200 mg/g CRE Test Normal not performed PROT:CRE RATIO Performed By: #### L501.0900 #### [facility] [address] [place], [place], [id number] CBC W/DIFF, AUTOMATED Collected: 12/19/2017 Status: F Source: [place] 10:04 AM [facility] [place] TYPE CODE TESTS RESULT OUT OF RANGE REFERENCE UNITS LAB L100.1000 4.4-11.0 K/mm3 Normal WBC 10.3 LAB L100.1200 4.2-5.4 M/mm3 Normal RBC 4.83 LAB L100.1300 12.0-15.0 g/dl Normal HGB 13.9 LAB L100.1400 37-47 % Normal HCT 42.3 LAB L100.1500 81-99 fL Normal MCV 87.6 LAB L100.1600 27.0-32.0 pg Normal MCH 28.8 LAB L100.1700 32-36 g/gl Normal MCHC 32.9 LAB L100.1810 11.6-14.6 % Normal RDW CV 13.3 LAB L100.1820 35.1-43.9 fl Normal RDW SD 42.7 LAB L100.1900 150-450 K/mm3 Normal PLT 271 LAB L100.2000 6.2-12.0 fl Normal MPV 10.6 LAB L100.2100 47-70 % High NEUT% 75.0 LAB L100.2200 19-41 % Low LY% 18.3 LAB L100.2300 0-10 % Normal MONO% 4.9 LAB L100.2400 0-5 % Normal EO% 1.4 LAB L100.2500 0-1 % Normal BASO% 0.2 LAB L100.2550 0.0-0.9 % Normal IM GRAN % 0.200 Result Comment: IG% - Immature Granulocytes (promyelocytes, myelocytes and metamyelocytes) > 1% indicates that a LEFT SHIFT is Present. LAB L100.2620 2.0-7.7 X10 3/uL Normal Absolute Neut 7.7 LAB L100.2720 0.83-4.51 X10 3/ul Normal Absolute Lymph 1.88 Performed By: #### L100.0100 #### [facility] [address] [place], [address] COMPREHENSIVE METABOLIC Collected: 12/19/2017 Status: F Source: [place] GARZA 10:04 AM [facility] [place] Order Comment: Serial Specimen #1, #2 or #3? 1 TYPE CODE TESTS RESULT OUT OF RANGE REFERENCE UNITS LAB L501.0100 74-106 mg/dL Normal GLU 95 Result Comment: Please note revised GLUCOSE reference range effective 2017. LAB L501.1000 7-18 mg/dL Normal BUN 7 LAB L501.1100 0.55-1.02 mg/dL Normal CREAT,SERUM 0.65 Result Comment: The validity of the calculated GFR AND GFRAA in patients over 70 years has not been determined. Clinical correlation is essential. LAB L501.1110 >60 mL/min Normal EST GFR 109 Result Comment: Non- GFR Calc LAB L501.1115 >60 mL/min Normal EST GFR - AA 132 Result Comment: GFR Calc LAB L501.1300 10-20 RATIO Normal BUN/CRE 10.8 LAB L501.1500 6.4-8.2 g/dL T Normal PROT 6.9 LAB L501.1800 3.2-5.0 g/dL Low ALB 2.7 LAB L501.1950 2.2-4.2 g/dL Normal GLOB 4.2 LAB L501.2000 0.9-2.4 RATIO Low A/G 0.6 LAB L501.2200 8.5-10.1 mg/dL CA Normal 8.8 LAB L501.4100 15-37 U/L Low AST 12 LAB L501.4305 45-117 U/L Normal ALK P 110 LAB L501.4405 13-56 U/L Normal ALT 15 LAB L501.4600 0.20-1.00 mg/dL T Normal BILI 0.30 LAB L501.5300 136-145 mmol/L NA Normal 137 LAB L501.5600 3.5-5.1 mmol/L K Normal 3.8 LAB L501.5900 98-107 mmol/L CL Normal 101 LAB L501.6100 21.0-32.0 mmol/L Normal CO2 27.0 LAB L501.6200 5-15 Normal GAP 9 Performed By: #### L500.4050, L501.1400, L504.2610 #### [facility] [address] [place], [address] URIC ACID Collected: 12/19/2017 Status: F Source: [place] 10:04 AM [facility] [place] Order Comment: Serial Specimen #1, #2 or #3? 1 TYPE CODE TESTS RESULT OUT OF RANGE REFERENCE UNITS LAB L501.1400 2.6-6.0 mg/dL Normal URIC 4.2 Result Comment: The drugs N-Acetylcysteine and Metamizole may falsely depress this assay. Performed By: #### L500.4050, L501.1400, L504.2610 #### [facility] [address] [place], [address] LDH Collected: 12/19/2017 Status: F Source: [place] 10:04 AM [facility] [place] Order Comment: Serial Specimen #1, #2 or #3? 1 TYPE CODE TESTS RESULT OUT OF RANGE REFERENCE UNITS LAB L504.2610 84-246 U/L Normal LDH 161 Performed By: #### L500.4050, L501.1400, L504.2610 #### [facility] [address] [place], [address] POLICY ANALYST OFFICE VISIT Observed: 12/03/2017 Status: F Source: [place] REPORT 4:04 PM [facility] [place] [facility] [address] [place] [address] OFFICE VISIT Date of Service: 12/03/17 MR#: [id number] Acct: [id number] Name: LEOYUE GOMEZMary Rehman Rep #: [id number] : 1980 Provider: PAZ Quiñones Age/Sex: 37/F Location: [facility] [place] Status: Signed Intake Vital Signs12/03/17 Height 5 ft 4.5 in 12/03/17 Weight: 219 lb 2 oz 12/03/17 Body Mass Index (BMI) 37.0 12/03/17 Blood Pressure 118/84 H Intake Visit Reasons: 32 weeks Equipment Specialist Required: No Is patient in pain?: No Allergies Iodinated Contrast- Oral and IV Dye [Iodinated Contrast Media - IV Dye] Allergy (Verified 12/03/17 11:11) Unknown naproxen sodium [From Aleve] Allergy (Verified 12/03/17 11:11) Unknown Medications Oxybutynin Chloride [Ditropan Xl] 10 mg PO DAILY 01/19/13 [History Confirmed 12/03/17] sertraline 50 mg tablet 50 mg PO QDAY #30 tab 08/07/17 [Rx Confirmed 12/03/17] Last Menstral Period: 04/17/17 Zika: Zika virus screening: Negative : No PFSH PFSH Medical History Anxiety with depression (Acute) Surgical History delivery delivered (Acute) H/O dilation and curettage (Acute) Family History Unknown Diabetes Social History Smoking Status: Never smoker alcohol intake: never substance use type: does not use caffeine: Yes what type of physical activity do you participate in: walking seatbelt use: always do you feel safe at home: Yes additional social history: Mega Lindsay Patient is a stay at home mom Pregancy History 8 Elective abortions Hx Para 5 Spontaneous abortions Past Pregnancies Del. DateName GA/Weeks Outcome Route Bth WeighInfant GeLabor LgtAnesthesiDel LocatProvider FOB t n h a n HPI 32 weeks: Details: JUSTYN WEST is a 37 year old who presents for routine OB visit. OB Visit [place] Calculator Estimated Delivery Date 01/22/18 Based on LMP (certain) 04/17/17 Current WG 32w 6d Number 1 Expected Delivery Route/Plan Specific Issue/Plans flu vaccine: declines tdap vaccine: decline LARC form signed: declines labor support person: Sandee pain management: epidural cut cord/dad catch: yes : yes PP control planned: [] special requests: [] Initial Weight: 190 lb Date Weight BP Urine PrFHR FuHt Pres MoCTX DilationFetal StVisit NoProviderComments E ot v te GA G Effac lucose ed Visit Notes Visit Date: 12/03/17 No Vb, LOF. Doing well EVER Ayala on 12/03/17 Visit Date: 11/16/17 no vb lof good fm no regular ctx Evelin Hart MD on 11/16/17 Visit Date: 11/02/17 no vb lof good fm no regualr ctx cbc gct today Evelin Hart MD on 11/03/17 Visit Date: 09/28/17 no vb lof good fm no regualr ctx. Evelin Hart MD on 09/28/17 Visit Date: 08/21/17 Doing well. No VB, LOF. Rare event of sudden pain upper left abdomen when touched. No lump. Doesn't happen often. EVER Ayala on 08/21/17 Visit Date: 07/24/17 no vb lof cramping Evelin Hart MD on 07/24/17 Visit Date: 06/27/17 No visit notes to display ACOG First Trimester First Trimester: Desire for , Alcohol, Tobacco Cessation, Illicit/Recreational Drug/Substance Use, Intimate Partner Violence, Barriers to care, Unstable Housing, Communication Barriers, Environmental/Work Hazards, Anticipated Course of Care, Toxoplasmosis Precations, Use of Any medications, Sexual activity, Exercise, Dental Care, Sauna/Hot tub use, Seat Belt use, Childbirth classes/Hospital facilities, , Travel, Indications for US and Screening for Aneuploidy Diagnostics Diagnostics Labs Blood Type O POSITIVE 07/24/17 Antibody Screen NEGATIVE 07/24/17 Hct 38.4 % (37-47) 11/02/17 Hgb 12.9 g/dl (12.0-15.0) 11/02/17 Pap Smear Negative 02/17/16 Obstetrics Ultrasound 09/28/17 Rubella IgG Antibody 70.6 IU/mL 07/24/17 RPR NONREACTIVE (NONREACTIVE) 07/24/17 Hep Bs Antigen Negative (Negative) 07/24/17 Chlam trachomat DNA PCR Negative (Negative) 06/27/17 N.gonorrhoeae DNA (PCR) Negative (Negative) 06/27/17 Glucose 1 Hr 50 gm 96 mg/dL (70-140) 11/02/17 Rhogam given: No 01/21/13 Details: HIV: Urine Culture: Sequential Screen: NIPT Screen: Results [id number] Office Urine Glucose Negative Last Edit by Vicky Chung on 12/03/17 11:16 Office Urine Protein Negative Last Edit by Vicky Chung on 12/03/17 11:16 Assessment AND Plan Problems 1. Encounter for supervision of other normal in third trimester Z34.83 01/22/18 girl ERMELINDA Vidal, Mesfin Quintana Sawyer, Magdy Sandee 2. 30 weeks gestation of Z3A.30 genetic, carrier, and ntd screening declined. anatomy us normal. 3. History of delivery, currently O34.219 h/o ltcs then 4 successful VBACs, plan this delivery Plan Orders placed: none Reviewed of labor precautions, movement/kick counts ACOG trimester education reviewed and updated See problem list details for updated plan of care Gestational age appropriate handout given RTO: 2 weeks Orders Orders: Coding Level of Care Code OB Routine Diagnoses Encounter for supervision of other normal in third trimester Z34.83 Normal : other normal Trimester: third trimester 30 weeks gestation of Z3A.30 Weeks of gestation: 30 weeks History of delivery, currently O34.219 12/03/17 1604 <Electronically signed by Mary CURTIS> Date Mary CURTIS Cosigner Signature: Date (if applicable) CC: POLICY ANALYST OFFICE VISIT Observed: 11/16/2017 Status: F Source: [place] REPORT 11:03 AM [facility] [address] [place] [address]. [address] [place] [address] OFFICE VISIT Date of Service: 11/16/17 MR#: [id number] Acct: [id number] Name: JUSTYN WEST Ori Rep #: [id number] : 1980 Provider: Evelin Hart MD Age/Sex: 37/F Location: [facility] Status: Signed Intake Vital Signs11/16/17 Height 5 ft 4.5 in 11/16/17 Weight: 218 lb 11/16/17 Body Mass Index (BMI) 36.8 11/16/17 Blood Pressure 114/68 Intake Visit Reasons: 30 weeks Chief Complaint: est ob Equipment Specialist Required: No Is patient in pain?: No Allergies Iodinated Contrast- Oral and IV Dye [Iodinated Contrast Media - IV Dye] Allergy (Verified 11/16/17 10:28) Unknown naproxen sodium [From Aleve] Allergy (Verified 11/16/17 10:28) Unknown Medications Oxybutynin Chloride [Ditropan Xl] 10 mg PO DAILY 01/19/13 [History Confirmed 11/02/17] sertraline 50 mg tablet 50 mg PO QDAY #30 tab 08/07/17 [Rx Confirmed 11/16/17] Last Menstral Period: 04/17/17 Zika: Zika virus screening: Negative : No PFSH PFSH Medical History Anxiety with depression (Acute) Surgical History delivery delivered (Acute) H/O dilation and curettage (Acute) Family History Unknown Diabetes Social History Smoking Status: Never smoker alcohol intake: never substance use type: does not use caffeine: Yes what type of physical activity do you participate in: walking seatbelt use: always do you feel safe at home: Yes additional social history: Sandee Sean Patient is a stay at home mom Pregancy History 8 Elective abortions Hx Para 5 Spontaneous abortions Past Pregnancies Del. DateName GA/Weeks Outcome Route Bth WeighInfant GeLabor LgtAnesthesiDel LocatProvider FOB t n h a n HPI 30 weeks: Details: JUSTYN WEST is a 37 year old who presents for routine OB visit. Patient declines flu vaccine OB Visit [place] Calculator Estimated Delivery Date 01/22/18 Based on LMP (certain) 04/17/17 Current WG 30w 3d Number 1 Expected Delivery Route/Plan Specific Issue/Plans flu vaccine: declines tdap vaccine: decline LARC form signed: declines labor support person: [] pain management: [] cut cord/dad catch: [] : [] PP control planned: [] special requests: [] Initial Weight: 190 lb Date Weight BP Urine PrFHR FuHt Pres MoCTX DilationFetal StVisit NoProviderComments E ot v te GA G Effac lucose ed Visit Notes Visit Date: 11/16/17 no vb lof good fm no regular ctx Evelin Hart MD on 11/16/17 Visit Date: 11/02/17 no vb lof good fm no regualr ctx cbc gct today Evelin Hart MD on 11/03/17 Visit Date: 09/28/17 no vb lof good fm no regualr ctx. Evelin Hart MD on 09/28/17 Visit Date: 08/21/17 Doing well. No VB, LOF. Rare event of sudden pain upper left abdomen when touched. No lump. Doesn't happen often. Mary Quiñones NP-C on 08/21/17 Visit Date: 07/24/17 no vb lof cramping Evelin Hart MD on 07/24/17 Visit Date: 06/27/17 No visit notes to display ACOG First Trimester First Trimester: Desire for , Alcohol, Tobacco Cessation, Illicit/Recreational Drug/Substance Use, Intimate Partner Violence, Barriers to care, Unstable Housing, Communication Barriers, Environmental/Work Hazards, Anticipated Course of Care, Toxoplasmosis Precations, Use of Any medications, Sexual activity, Exercise, Dental Care, Sauna/Hot tub use, Seat Belt use, Childbirth classes/Hospital facilities, , Travel, Indications for US and Screening for Aneuploidy Diagnostics Diagnostics Labs Blood Type O POSITIVE 07/24/17 Antibody Screen NEGATIVE 07/24/17 Hct 38.4 % (37-47) 11/02/17 Hgb 12.9 g/dl (12.0-15.0) 11/02/17 Pap Smear Negative 02/17/16 Obstetrics Ultrasound 09/28/17 Rubella IgG Antibody 70.6 IU/mL 07/24/17 RPR NONREACTIVE (NONREACTIVE) 07/24/17 Hep Bs Antigen Negative (Negative) 07/24/17 Chlam trachomat DNA PCR Negative (Negative) 06/27/17 N.gonorrhoeae DNA (PCR) Negative (Negative) 06/27/17 Glucose 1 Hr 50 gm 96 mg/dL (70-140) 11/02/17 Rhogam given: No 01/21/13 Details: HIV: Urine Culture: Sequential Screen: NIPT Screen: Results [id number] Office Urine Glucose Negative Last Edit by Roseline Perez on 11/16/17 10:35 Office Urine Protein Negative Last Edit by Roseline Perez on 11/16/17 10:35 Assessment AND Plan Problems 1. 30 weeks gestation of Z3A.30 genetic, carrier, and ntd screening declined. anatomy us normal. 2. History of delivery, currently O34.219 h/o ltcs then 4 successful VBACs, plan this delivery 3. Encounter for supervision of other normal in third trimester Z34.83 01/22/18 girl PC Mariano Vidal Cole, Sawyer, Magdy Sandee Plan movement and labor precautions reviewed. ACOG trimester education reviewed and updated. see problem list details for updated plan management information and see below for orders placed at this visit. GA appropriate handout given. Orders Orders: Coding Level of Care Code OB Routine Diagnoses 30 weeks gestation of Z3A.30 Weeks of gestation: 30 weeks History of delivery, currently O34.219 Encounter for supervision of other normal in third trimester Z34.83 Normal : other normal Trimester: third trimester 11/16/17 1103 <Electronically signed by Evelin Hart MD> Date Evelin Hart MD Cosigner Signature: Date (if applicable) CC: POLICY ANALYST OFFICE VISIT Observed: 11/03/2017 Status: F Source: [place] REPORT 1:00 PM [facility] [address] [place] [address] OFFICE VISIT Date of Service: 11/02/17 MR#: [id number] Acct: [id number] Name: JUSTYN WEST Rep #: [id number] : 1980 Provider: Evelin Hart MD Age/Sex: 37/F Location: [facility] [place] Status: Signed Intake Vital Signs11/02/17 Height 5 ft 4.75 in 11/02/17 Weight: 217 lb 6 oz 11/02/17 Body Mass Index (BMI) 36.4 Intake Visit Reasons: 28 weeks Equipment Specialist Required: No Is patient in pain?: No Allergies Iodinated Contrast- Oral and IV Dye [Iodinated Contrast Media - IV Dye] Allergy (Verified 11/02/17 10:42) Unknown naproxen sodium [From Aleve] Allergy (Verified 11/02/17 10:42) Unknown Medications Oxybutynin Chloride [Ditropan Xl] 10 mg PO DAILY 01/19/13 [History Confirmed 11/02/17] sertraline 50 mg tablet 50 mg PO QDAY #30 tab 08/07/17 [Rx Confirmed 11/02/17] Last Menstral Period: 04/17/17 Zika: Zika virus screening: Negative : No PFSH PFSH Medical History Anxiety with depression (Acute) Surgical History delivery delivered (Acute) H/O dilation and curettage (Acute) Family History Unknown Diabetes Social History Smoking Status: Never smoker alcohol intake: never substance use type: does not use caffeine: Yes what type of physical activity do you participate in: walking seatbelt use: always do you feel safe at home: Yes additional social history: Mega Lindsay Patient is a stay at home mom Pregancy History 8 Elective abortions Hx Para 5 Spontaneous abortions Past Pregnancies Del. DateName GA/Weeks Outcome Route Bth WeighInfant GeLabor LgtAnesthesiDel LocatProvider FOB t n h a n HPI 28 weeks: Details: JUSTYN WEST is a 37 year old who presents for routine OB visit. OB Visit [place] Calculator Estimated Delivery Date 01/22/18 Based on LMP (certain) 04/17/17 Current WG 28w 4d Number 1 Expected Delivery Route/Plan Specific Issue/Plans flu vaccine: declines minichart given: tdap vaccine: [] rhogam: [] LARC form signed: [] labor support person: [] pain management: [] cut cord/dad catch: [] : [] PP control planned: [] special requests: [] Initial Weight: 190 lb Date Weight BP Urine PrFHR FuHt Pres MoCTX DilationFetal StVisit NoProviderComments E ot v te GA G Effac lucose ed Visit Notes Visit Date: 11/02/17 no vb lof good fm no regualr ctx cbc gct today Evelin Hart MD on 11/03/17 Visit Date: 09/28/17 no vb lof good fm no regualr ctx. Evelin Hart MD on 09/28/17 Visit Date: 08/21/17 Doing well. No VB, LOF. Rare event of sudden pain upper left abdomen when touched. No lump. Doesn't happen often. Mary Quiñones, PRACTICING DERMATOLOGIST-C on 08/21/17 Visit Date: 07/24/17 no vb lof cramping Evelin Hart MD on 07/24/17 Visit Date: 06/27/17 No visit notes to display ACOG First Trimester First Trimester: Desire for , Alcohol, Tobacco Cessation, Illicit/Recreational Drug/Substance Use, Intimate Partner Violence, Barriers to care, Unstable Housing, Communication Barriers, Environmental/Work Hazards, Anticipated Course of Care, Toxoplasmosis Precations, Use of Any medications, Sexual activity, Exercise, Dental Care, Sauna/Hot tub use, Seat Belt use, Childbirth classes/Hospital facilities, , Travel, Indications for US and Screening for Aneuploidy Diagnostics Diagnostics Labs Blood Type O POSITIVE 07/24/17 Antibody Screen NEGATIVE 07/24/17 Hct 38.4 % (37-47) 11/02/17 Hgb 12.9 g/dl (12.0-15.0) 11/02/17 Pap Smear Negative 02/17/16 Obstetrics Ultrasound 09/28/17 Rubella IgG Antibody 70.6 IU/mL 07/24/17 RPR NONREACTIVE (NONREACTIVE) 07/24/17 Hep Bs Antigen Negative (Negative) 07/24/17 Chlam trachomat DNA PCR Negative (Negative) 06/27/17 N.gonorrhoeae DNA (PCR) Negative (Negative) 06/27/17 Glucose 1 Hr 50 gm 96 mg/dL (70-140) 11/02/17 Rhogam given: No 01/21/13 Details: HIV: Urine Culture: Sequential Screen: NIPT Screen: Results [id number] Office Urine Glucose Negative Last Edit by Vicky Chung on 11/02/17 10:47 Office Urine Protein Negative Last Edit by Vicky Chung on 11/02/17 10:47 Assessment AND Plan Orders Orders: Coding Level of Care Code OB Routine 11/03/17 1300 <Electronically signed by Evelin Hart MD> Date Evelin Hart MD Cosigner Signature: Date (if applicable) CC: CBC W/DIFF, AUTOMATED Collected: 11/02/2017 Status: F Source: [place] 11:15 AM [facility] [place] TYPE CODE TESTS RESULT OUT OF RANGE REFERENCE UNITS LAB L100.1000 4.4-11.0 K/mm3 High WBC 11.4 LAB L100.1200 4.2-5.4 M/mm3 Normal RBC 4.45 LAB L100.1300 12.0-15.0 g/dl Normal HGB 12.9 LAB L100.1400 37-47 % Normal HCT 38.4 LAB L100.1500 81-99 fL Normal MCV 86.3 LAB L100.1600 27.0-32.0 pg Normal MCH 29.0 LAB L100.1700 32-36 g/gl Normal MCHC 33.6 LAB L100.1810 11.6-14.6 % Normal RDW CV 13.8 LAB L100.1820 35.1-43.9 fl Normal RDW SD 42.8 LAB L100.1900 150-450 K/mm3 Normal PLT 299 LAB L100.2000 6.2-12.0 fl Normal MPV 10.0 LAB L100.2100 47-70 % High NEUT% 71.6 LAB L100.2200 19-41 % Normal LY% 19.8 LAB L100.2300 0-10 % Normal MONO% 6.0 LAB L100.2400 0-5 % Normal EO% 1.7 LAB L100.2500 0-1 % Normal BASO% 0.3 LAB L100.2550 0.0-0.9 % Normal IM GRAN % 0.600 Result Comment: IG% - Immature Granulocytes (promyelocytes, myelocytes and metamyelocytes) > 1% indicates that a LEFT SHIFT is Present. LAB L100.2620 2.0-7.7 X10 3/uL High Absolute Neut 8.2 LAB L100.2720 0.83-4.51 X10 3/ul Normal Absolute Lymph 2.25 Performed By: #### L100.0100, L501.0250 #### [facility] [address] [place], [address] GLUCOSE CHALLENGE GEST Collected: 11/02/2017 Status: F Source: [place] 1H 50G 11:15 AM [facility] [place] Order Comment: Comments: Draw lab at 11:14am TYPE CODE TESTS RESULT OUT OF RANGE REFERENCE UNITS LAB L501.0250 70-140 mg/dL Normal GLU GEST 96 50g 1H Performed By: #### L100.0100, L501.0250 #### [facility] [address] [place], [address] OB LIMITED WITH Observed: 09/28/2017 Status: F Source: [place] BIOMETRICS 11:19 AM [facility] [place] [facility] Imaging Services [address] [place] [address] OB Limited With Biometrics MR#: [id number] Acct: [id number] Name: JUSTYN WEST Ori Rep #: [id number] : 1980 F 37 From: Óscar Campbell MD PCP: Care Physician, No Primary Status: REG CLI Study: OB Limited With Biometrics Date of Exam: 09/28/17 Exam# [id number] Ordering Dr: Mary Quiñones STUDY: SECOND AND THIRD TRIMESTER OBSTETRICAL ULTRASOUND - LIMITED REASON FOR EXAM: Female, 37 years old. Follow-up anatomy. LMP: April 17, 2017. PRIOR ULTRASOUND: Comparison is made with prior ultrasound dated August 31, 2017. TECHNIQUE: Transabdominal ultrasound evaluation was performed. FINDINGS: There is a single intrauterine fetus. The fetus is in a breech presentation. There is demonstrated cardiac activity with a heart rate of 135 bpm. There is a normal amniotic fluid volume. The largest amniotic fluid pocket measures 4.6 cm x 5.1 cm. The amniotic fluid index (MARILU) is normal. The placenta is anterior in location and is not low lying. There are Grade 1 placental changes. The cervix measures 4.8 cm in length. BIOMETRY: BPD: 5.7 cm: 23 weeks, 4 days HC: 21.81 cm: 23 weeks, 6 days AC: 18.5 cm: 23 weeks, 3 days FL: 4.1 cm: 23 weeks, 2 days Age by LMP: 20 weeks, 3 days. PARIS by LMP: January 22, 2018. age by prior US: 24 weeks, 0 days. PARIS by prior US: January 18, 2018. age by current US: 23 weeks, 4 days. PARIS by current US: January 21, 2018. Estimated weight: 585 grams, +/- 85 grams, 37 percentile. The cisterna magna and cerebellum are unremarkable. US/OB Limited With Biometrics IMPRESSION: Single live uterine gestation with a mean gestational age of 24 weeks. The measurements obtained today following the normal expected range. Electronically Signed: Óscar Campbell MD at 15:42 EDT Tel [phone], Service support , CC: PAZ Quiñones; No Primary Care Physician Plating Tank Operator: Signed POLICY ANALYST OFFICE VISIT Observed: 09/28/2017 Status: F Source: [place] REPORT 10:58 AM [facility] [address] [place], [place] [address]ma[address]. [address] [place] [address] OFFICE VISIT Date of Service: 09/28/17 MR#: [id number] Acct: [id number] Name: JUSTYN WEST Rep #: [id number] : 1980 Provider: Evelin Hart MD Age/Sex: 37/F Location: [facility] [place] Status: Signed Intake Vital Signs09/28/17 Height 5 ft 4.75 in 09/28/17 Weight: 206 lb 6 oz 09/28/17 Body Mass Index (BMI) 34.6 09/28/17 Blood Pressure 144/81 Intake Visit Reasons: est ob 23 weeks Equipment Specialist Required: No Is patient in pain?: No Allergies Iodinated Contrast- Oral and IV Dye [Iodinated Contrast Media - IV Dye] Allergy (Verified 09/28/17 10:40) Unknown naproxen sodium [From Aleve] Allergy (Verified 09/28/17 10:40) Unknown Medications Oxybutynin Chloride [Ditropan Xl] 10 mg PO DAILY 01/19/13 [History Confirmed 09/28/17] sertraline 50 mg tablet 50 mg PO QDAY #30 tab 08/07/17 [Rx Confirmed 09/28/17] Last Menstral Period: 04/17/17 Zika: Zika virus screening: Negative : No PFSH PFSH Medical History Anxiety with depression (Acute) Surgical History delivery delivered (Acute) H/O dilation and curettage (Acute) Family History Unknown Diabetes Social History Smoking Status: Never smoker alcohol intake: never substance use type: does not use caffeine: Yes what type of physical activity do you participate in: walking seatbelt use: always do you feel safe at home: Yes additional social history: Mega Lindsay Patient is a stay at home mom Pregancy History 8 Elective abortions Hx Para 5 Spontaneous abortions Past Pregnancies Del. DateName GA/Weeks Outcome Route Bth WeighInfant GeLabor LgtAnesthesiDel LocatProvider FOB t n h a n HPI est ob 23 weeks: Details: JUSTYN WEST is a 37 year old who presents for routine OB visit. OB Visit PARIS Calculator Estimated Delivery Date 01/22/18 Based on LMP (certain) 04/17/17 Current WG 23w 3d Number 1 Expected Delivery Route/Plan Specific Issue/Plans flu vaccine: declines minichart given: tdap vaccine: [] rhogam: [] LARC form signed: [] labor support person: [] pain management: [] cut cord/dad catch: [] : [] PP control planned: [] special requests: [] Initial Weight: 190 lb Date Weight BP Urine PFHR FuHt Pres MCTX DilatioFetal SVisit NProvideComment rot ov n t ote r s EGA Ef Gluco faced se 06/27/1189 lb 131/83 8 4 oz (+ 104 oz) w 1d Visit Notes Visit Date: 09/28/17 no vb lof good fm no regualr ctx. Evelin Hart MD on 09/28/17 Visit Date: 08/21/17 Doing well. No VB, LOF. Rare event of sudden pain upper left abdomen when touched. No lump. Doesn't happen often. Mary Quiñones, PRACTICING DERMATOLOGIST-C on 08/21/17 Visit Date: 07/24/17 no vb lof cramping Evelin Hart MD on 07/24/17 Visit Date: 06/27/17 No visit notes to display ACOG First Trimester First Trimester: Desire for , Alcohol, Tobacco Cessation, Illicit/Recreational Drug/Substance Use, Intimate Partner Violence, Barriers to care, Unstable Housing, Communication Barriers, Environmental/Work Hazards, Anticipated Course of Care, Toxoplasmosis Precations, Use of Any medications, Sexual activity, Exercise, Dental Care, Sauna/Hot tub use, Seat Belt use, Childbirth classes/Hospital facilities, , Travel, Indications for US and Screening for Aneuploidy Diagnostics Diagnostics Labs Blood Type O POSITIVE 07/24/17 Antibody Screen NEGATIVE 07/24/17 Hct 40.7 % (37-47) 07/24/17 Hgb 13.6 g/dl (12.0-15.0) 07/24/17 Pap Smear Negative 02/17/16 Obstetrics Ultrasound 08/31/17 Rubella IgG Antibody 70.6 IU/mL 07/24/17 RPR NONREACTIVE (NONREACTIVE) 07/24/17 Hep Bs Antigen Negative (Negative) 07/24/17 Chlam trachomat DNA PCR Negative (Negative) 06/27/17 N.gonorrhoeae DNA (PCR) Negative (Negative) 06/27/17 Rhogam given: No 01/21/13 Details: HIV: Urine Culture: Sequential Screen: NIPT Screen: Results [id number] Office Urine Glucose Negative Last Edit by Vicky Chung on 09/28/17 10:48 Office Urine Protein Negative Last Edit by Vicky Chung on 09/28/17 10:48 Assessment AND Plan Problems 1. Encounter for supervision of other normal in second trimester Z34.82 01/22/18 girl PC Young, Mesfin Quintana Sawyer, Magdy Sandee 2. History of delivery, currently O34.219 h/o ltcs then 4 successful VBACs, plan this delivery 3. 23 weeks gestation of Z3A.23 Plan declined genetic and NTD screening. anatomy scan normal Orders Orders: Coding Level of Care Code OB Routine Diagnoses Encounter for supervision of other normal in second trimester Z34.82 History of delivery, currently O34.219 23 weeks gestation of Z3A.23 Weeks of gestation: 23 weeks 09/28/17 1058 <Electronically signed by Evelin Hart MD> Date Evelin Hart MD Cosigner Signature: Date (if applicable) CC: OB ANATOMY SCAN Observed: 08/31/2017 Status: F Source: [place] 3:37 PM [facility] [place] [facility] Imaging Services [address] [place] [address] OB Anatomy Scan MR#: [id number] Acct: [id number] Name: JUSTYN WEST Rep #: [id number] : 1980 F 37 From: Ailyn Mena PCP: Care Physician, No Primary Status: REG CLI Study: OB Anatomy Scan Date of Exam: 08/31/17 Exam# [id number] Ordering Dr: Mary Quiñones PRACTICING DERMATOLOGIST-Fernandez STUDY: SECOND AND THIRD TRIMESTER OBSTETRICAL ULTRASOUND REASON FOR EXAM: Female, 37 years old. For anatomy. LMP: PARIS: 01/22/2018 TECHNIQUE: Transabdominal PRIOR ULTRASOUND: None. FINDINGS: There is a single intrauterine fetus. The fetus is in a transverse lie with the head on the maternal right side. There is demonstrated cardiac activity with a heart rate of 153 bpm. There is a normal amniotic fluid volume. The largest amniotic fluid pocket measures 3.9 x 3.6 cm. The placenta is anterior in location and is not low lying. There are Grade 0 placental changes. The cervix measures 4.6 cm in length. The bilateral adnexal regions are visualized BIOMETRY: BPD: 4.5 cm: 19 weeks, 4 days HC: 17.1 cm: 19 weeks, 5 days AC: 14.8 cm: 20 weeks, 1 days FL: 3.3 cm: 20 weeks, 2 days CI: 73% FL/BPD: 74% FL/AC: 22% HC/AC: 1.15 age by current US: 20 weeks, 0 days. PARIS by current US: 01/18/2018. Estimated weight: 333 grams, +/- 49 grams, 84 %. Age by provided PARIS: 19 weeks, 3 days. PARIS : . ANATOMY: Visualized. Gender: Female Cranium: lateral ventricles. choroid plexus. Posterior fossa/cisterna magna and cerebellar is not visualized due to position. face, nose and lips. Chest: 4-chamber heart. Abdomen/Pelvis: diaphragm. stomach. abdominal wall. cord insertion. 3 vessel cord. kidneys. bladder. Spine: cervical spine. thoracic spine. lumbar spine. sacrum. Extremities: bilateral upper extremities. bilateral lower extremities. US/OB Anatomy Scan IMPRESSION: 1. Single alive intrauterine line seen in a transverse position. 2. Estimated gestational age by current ultrasound: 20 weeks 0 day and PARIS: 01/18/2018. Based on clinical dates gestational age: 19 weeks 3 days and PARIS: 01/22/2018. 3. EFW: 333 g. 4. Unremarkable visualized anatomy. Electronically Signed: Suzi Mena MD at 10:44 EDT Tel , Service support , CC: PAZ Quiñones; No Primary Care Physician Plating Tank Operator: Signed PROGRESS Observed: 08/29/2017 Status: COMPLETED Source: [place] 10:53 AM [facility] REPOSITORY HNO ID: [id number] Author: Elisha (Brandi) [place] Service: (none) Author Type: BISQUE WARE DIPPER Type: Progress Notes Filed: 08/29/2017 10:54 AM Note Text: ASSESSMENT/PLAN: 1. 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 Patient was instructed to call the office ([phone]) immediately upon noticing flashes of light, increase in floaters, or changes in vision. 2. 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 I have seen and examined Justyn West. I have discussed the examination findings, diagnosis, and treatment options with Justyn West and/or her family. I have also reviewed and agree with the assessment and plan as stated above and agree with all its relevant components. I gave the patient the opportunity to ask questions about the findings, diagnosis, and treatment options. POLICY ANALYST OFFICE VISIT Observed: 08/21/2017 Status: F Source: [place] REPORT 1:34 PM [facility] [place] [facility] [address] [place] [address] OFFICE VISIT Date of Service: 08/21/17 MR#: [id number] Acct: [id number] Name: JUSTYN WEST Rep #: [id number] : 1980 Provider: PAZ Quiñones Age/Sex: 37/F Location: [facility] [place] Status: Signed Intake Vital Signs08/21/17 Height 5 ft 4.75 in 08/21/17 Weight: 197 lb 08/21/17 Body Mass Index (BMI) 33.0 08/21/17 Blood Pressure 130/76 Intake Visit Reasons: 18 WEEK OB Equipment Specialist Required: No Is patient in pain?: No Allergies Iodinated Contrast- Oral and IV Dye [Iodinated Contrast Media - IV Dye] Allergy (Verified 08/21/17 13:13) Unknown naproxen sodium [From Aleve] Allergy (Verified 08/21/17 13:13) Unknown Medications Oxybutynin Chloride [Ditropan Xl] 10 mg PO DAILY 01/19/13 [History Confirmed 08/21/17] sertraline 50 mg tablet 50 mg PO QDAY #30 tab 08/07/17 [Rx Confirmed 08/21/17] Last Menstral Period: 04/17/17 Zika: Zika virus screening: Negative : No PFSH PFSH Medical History Anxiety with depression (Acute) Surgical History delivery delivered (Acute) H/O dilation and curettage (Acute) Family History Unknown Diabetes Social History Smoking Status: Never smoker alcohol intake: never substance use type: does not use caffeine: Yes what type of physical activity do you participate in: walking seatbelt use: always do you feel safe at home: Yes additional social history: Mega Lindsay Patient is a stay at home mom Pregancy History 8 Elective abortions Hx Para 5 Spontaneous abortions Past Pregnancies Del. DateName GA/Weeks Outcome Route Bth WeighInfant GeLabor LgtAnesthesiDel LocatProvider FOB t n h a n HPI 18 WEEK OB: Details: JUSTYN WEST is a 37 year old who presents for routine OB visit. OB Visit [place] Calculator Estimated Delivery Date 01/22/18 Based on LMP (certain) 04/17/17 Current WG 18w 0d Number 1 Expected Delivery Route/Plan Specific Issue/Plans flu vaccine: declines minichart given: tdap vaccine: [] rhogam: [] LARC form signed: [] labor support person: [] pain management: [] cut cord/dad catch: [] : [] PP control planned: [] special requests: [] Initial Weight: 190 lb Date Weight BP Urine PrFHR FuHt Pres MoCTX DilationFetal StVisit NoProviderComments E ot v te GA G Effac lucose ed Visit Notes Visit Date: 08/21/17 Doing well. No VB, LOF. Rare event of sudden pain upper left abdomen when touched. No lump. Doesn't happen often. Mary Quiñones NP-C on 08/21/17 Visit Date: 07/24/17 no vb lof cramping Evelin Hart MD on 07/24/17 Visit Date: 06/27/17 No visit notes to display ACOG First Trimester First Trimester: Desire for , Alcohol, Tobacco Cessation, Illicit/Recreational Drug/Substance Use, Intimate Partner Violence, Barriers to care, Unstable Housing, Communication Barriers, Environmental/Work Hazards, Anticipated Course of Care, Toxoplasmosis Precations, Use of Any medications, Sexual activity, Exercise, Dental Care, Sauna/Hot tub use, Seat Belt use, Childbirth classes/Hospital facilities, , Travel, Indications for US and Screening for Aneuploidy Diagnostics Diagnostics Labs Blood Type O POSITIVE 07/24/17 Antibody Screen NEGATIVE 07/24/17 Hct 40.7 % (37-47) 07/24/17 Hgb 13.6 g/dl (12.0-15.0) 07/24/17 Rubella IgG Antibody 70.6 IU/mL 07/24/17 RPR NONREACTIVE (NONREACTIVE) 07/24/17 Hep Bs Antigen Negative (Negative) 07/24/17 Chlam trachomat DNA PCR Negative (Negative) 06/27/17 N.gonorrhoeae DNA (PCR) Negative (Negative) 06/27/17 Rhogam given: No 01/21/13 Details: HIV: Urine Culture: Sequential Screen: NIPT Screen: Exam GI Palpation: soft (no mass, no hernia. ) Results [id number] Office Urine Glucose Negative Last Edit by Vicky Chung on 08/21/17 13:29 Office Urine Protein Negative Last Edit by Vicky Chung on 08/21/17 13:29 Assessment AND Plan Problems 1. Encounter for supervision of other normal in second trimester Z34.82 01/22/18 PC Mariano Vidal [place], Sawyer, Magdy Sandee 2. History of delivery, currently O34.219 h/o ltcs then 4 successful VBACs, plan this delivery 3. 18 weeks gestation of Z3A.18 Plan Orders placed: anatomy US Reassured concerning random abdominal discomfort. Will call if recurs/persistent/worsens. Reviewed of labor precautions, movement/kick counts ACOG trimester education reviewed and updated See problem list details for updated plan of care Gestational age appropriate handout given RTO: 4 weeks Orders Orders: Coding Level of Care Code OB Routine Diagnoses Encounter for supervision of other normal in second trimester Z34.82 Normal : other normal Trimester: second trimester History of delivery, currently O34.219 18 weeks gestation of Z3A.18 08/21/17 1334 <Electronically signed by Mary CURTIS> Date Mary CURTIS Cosigner Signature: Date (if applicable) CC: CBC W/DIFF, AUTOMATED Collected: 07/24/2017 Status: F Source: [place] 12:19 PM [facility] [place] TYPE CODE TESTS RESULT OUT OF RANGE REFERENCE UNITS LAB L100.1000 4.4-11.0 K/mm3 Normal WBC 9.3 LAB L100.1200 4.2-5.4 M/mm3 Normal RBC 4.86 LAB L100.1300 12.0-15.0 g/dl Normal HGB 13.6 LAB L100.1400 37-47 % Normal HCT 40.7 LAB L100.1500 81-99 fL Normal MCV 83.7 LAB L100.1600 27.0-32.0 pg Normal MCH 28.0 LAB L100.1700 32-36 g/gl Normal MCHC 33.4 LAB L100.1810 11.6-14.6 % Normal RDW CV 13.6 LAB L100.1820 35.1-43.9 fl Normal RDW SD 41.6 LAB L100.1900 150-450 K/mm3 Normal PLT 285 LAB L100.2000 6.2-12.0 fl Normal MPV 10.4 LAB L100.2100 47-70 % High NEUT% 70.4 LAB L100.2200 19-41 % Normal LY% 22.7 LAB L100.2300 0-10 % Normal MONO% 5.3 LAB L100.2400 0-5 % Normal EO% 1.3 LAB L100.2500 0-1 % Normal BASO% 0.2 LAB L100.2550 0.0-0.9 % Normal IM GRAN % 0.100 Result Comment: IG% - Immature Granulocytes (promyelocytes, myelocytes and metamyelocytes) > 1% indicates that a LEFT SHIFT is Present. LAB L100.2620 2.0-7.7 X10 3/uL Normal Absolute Neut 6.5 LAB L100.2720 0.83-4.51 X10 3/ul Normal Absolute Lymph 2.11 Performed By: #### L100.0100 #### [facility] [address] [place], [place], [address] TYPE AND SCREEN Collected: 07/24/2017 Status: F Source: [place] 12:19 PM [facility] [place] Order Comment: Reason for Type AND Screen/Red Cells: TYPE CODE TESTS RESULT OUT OF RANGE REFERENCE UNITS LAB B10.0800 O Normal BLOOD TYPE GEL POSITIVE LAB B100.4000 Normal Antibody NEGATIVE Screen Performed By: #### B101.7450, L509.4000, L3890.6005 #### [facility]. [facility] [address] #### L3100.0390 #### [facility] (refer to report for specific site) refer to report for address and phone number RUBELLA IGG Collected: 07/24/2017 Status: F Source: [place] 12:19 PM [facility] [place] TYPE CODE TESTS RESULT OUT OF RANGE REFERENCE UNITS LAB L509.4000 IU/mL Normal Rubella IgG 70.6 Result Comment: Antibody results Interpretation of Immune Status < 5 IU/ml Presumed Non-immune 5 - < 10 IU/ml Equivocal > or = 10 IU/ml Presumed Immune Performed By: #### B101.7450, L509.4000, L3890.6005 #### [facility] [address] [place], [place] [id number] #### L3100.0390 #### [facility] (refer to report for specific site) refer to report for address and phone number HIV - [facility] Collected: 07/24/2017 Status: F Source: [place] 12:19 [facility] REPOSITORY TYPE CODE TESTS RESULT OUT OF RANGE REFERENCE UNITS LAB L3890.6005 Nonreactive Normal HIV - [facility] Non-Reactive Performed By: #### B101.7450, L509.4000, L3890.6005 #### [facility] [address] [place], [place] [id number] #### L3100.0390 #### [facility] (refer to report for specific site) refer to report for address and phone number HEPATITIS B SURFACE Collected: 07/24/2017 Status: F Source: [place] AG 12:19 PM [facility] [place] TYPE CODE TESTS RESULT OUT OF RANGE REFERENCE UNITS LAB L3100.0400 Negative Normal HB Negative SURF AG Result Comment: Performed at: [facility] [address] [id number] Test Desk Trouble Locator: Dong Armstrong PhD, Phone: [phone] Performed By: #### B101.7450, L509.4000, L3890.6005 #### [facility] [address] [place] [address] #### L3100.0390 #### [facility] (refer to report for specific site) refer to report for address and phone number RAPID PLASMIN REAGIN Collected: 07/24/2017 Status: F Source: [place] (RPR) 12:19 PM [facility] [place] TYPE CODE TESTS RESULT OUT OF REFERENCE UNITS RANGE LAB L700.5000 NONREACTIVE NONREACTIVE Normal RPR Performed By: #### L700.5000 #### [facility] [address] [place], [address] POLICY ANALYST OFFICE VISIT Observed: 07/24/2017 Status: F Source: [place] REPORT 12:04 PM [facility] [place] [facility] [address] [place] [address] OFFICE VISIT Date of Service: 07/24/17 MR#: [id number] Acct: [id number] Name: LEOJUSTYN J Rep #: [id number] : 1980 Provider: Evelin Hart MD Age/Sex: 37/F Location: [facility] [place] Status: Signed Intake Vital Signs07/24/17 Height 5 ft 4.75 in 07/24/17 Weight: 193 lb 8 oz 07/24/17 Body Mass Index (BMI) 32.4 07/24/17 Blood Pressure 115/78 Intake Visit Reasons: 14 WEEK OB Equipment Specialist Required: No Is patient in pain?: No Allergies Iodinated Contrast- Oral and IV Dye [Iodinated Contrast Media - IV Dye] Allergy (Verified 07/24/17 11:45) Unknown naproxen sodium [From Aleve] Allergy (Verified 07/24/17 11:45) Unknown Medications Oxybutynin Chloride [Ditropan Xl] 10 mg PO DAILY 01/19/13 [History Confirmed 07/24/17] sertraline 50 mg tablet 50 mg PO QDAY 06/27/17 [History Confirmed 07/24/17] Last Menstral Period: 04/17/17 Zika: Zika virus screening: Negative : No PFSH PFSH Medical History Anxiety with depression (Acute) Surgical History delivery delivered (Acute) H/O dilation and curettage (Acute) Family History Unknown Diabetes Social History Smoking Status: Never smoker alcohol intake: never substance use type: does not use caffeine: Yes what type of physical activity do you participate in: walking seatbelt use: always do you feel safe at home: Yes additional social history: Mega Lindsay Patient is a stay at home mom Pregancy History 8 Elective abortions Hx Para 5 Spontaneous abortions Past Pregnancies Del. DateName GA/Weeks Outcome Route Bth WeighInfant GeLabor LgtAnesthesiDel LocatProvider FOB t n h a n HPI 14 WEEK OB: Details: JUSTYN WEST is a 37 year old who presents for routine OB visit. OB Visit [place] Calculator Estimated Delivery Date 01/22/18 Based on LMP (certain) 04/17/17 Current WG 14w 0d Number 1 Expected Delivery Route/Plan Specific Issue/Plans flu vaccine: declines minichart given: tdap vaccine: [] rhogam: [] LARC form signed: [] labor support person: [] pain management: [] cut cord/dad catch: [] : [] PP control planned: [] special requests: [] Initial Weight: 190 lb Date Weight BP Urine PFHR FuHt Pres MCTX DilatioFetal SVisit NProvideComment rot ov n t ote r s EGA Ef Gluco faced se 06/27/1189 lb 131/83 8 4 oz (+ 104 oz) w 1d Visit Notes Visit Date: 07/24/17 no vb lof cramping Evelin Hart MD on 07/24/17 Visit Date: 06/27/17 No visit notes to display ACOG First Trimester First Trimester: Desire for , Alcohol, Tobacco Cessation, Illicit/Recreational Drug/Substance Use, Intimate Partner Violence, Barriers to care, Unstable Housing, Communication Barriers, Environmental/Work Hazards, Anticipated Course of Care, Toxoplasmosis Precations, Use of Any medications, Sexual activity, Exercise, Dental Care, Sauna/Hot tub use, Seat Belt use, Childbirth classes/Hospital facilities, , Travel, Indications for US and Screening for Aneuploidy Diagnostics Diagnostics Labs Blood Type O POSITIVE 01/19/13 Antibody Screen NEGATIVE 01/19/13 Hct 41.1 % (37-47) 01/19/13 Hgb 14.3 g/dl (12.0-15.0) 01/19/13 Chlam trachomat DNA PCR Negative (Negative) 06/27/17 N.gonorrhoeae DNA (PCR) Negative (Negative) 06/27/17 Rhogam given: No 01/21/13 Details: HIV: Urine Culture: Sequential Screen: NIPT Screen: Results [id number] Office Urine Glucose Negative Last Edit by Vicky Chung on 07/24/17 11:48 Office Urine Protein Negative Last Edit by Vicky Chung on 07/24/17 11:48 Assessment AND Plan Problems 1. Encounter for supervision of other normal in second trimester Z34.82 01/22/18 PC Mariano Vidal Cole, Sawyer, Magdy Sandee 2. History of delivery, currently O34.219 h/o ltcs then 4 successful VBACs, plan this delivery 3. 14 weeks gestation of Z3A.14 Plan Orders placed: none ACOG trimester education reviewed and updated. see problem list details for updated plan management information. GA appropriate handout given. Orders Orders: Coding Level of Care Code OB Routine Diagnoses Encounter for supervision of other normal in second trimester Z34.82 Normal : other normal Trimester: second trimester History of delivery, currently O34.219 14 weeks gestation of Z3A.14 07/24/17 1204 <Electronically signed by Evelin Hart MD> Date Evelin Hart MD Cosign Signature: Date (if applicable) CC: CT/NG WCH BY PCR Collected: 06/27/2017 Status: F Source: [place] 5:14 PM [facility] [place] Order Comment: NO COLLECTION INFORMATION GIVEN TYPE CODE TESTS RESULT OUT OF RANGE REFERENCE UNITS LAB L8200.2100 Negative Normal Chlam Negative Trac PCR LAB L8200.2200 Negative Normal NG by Negative PCR Performed By: #### L8200.1999, M100.0650 #### [facility] [address] [place], [address] Observed: 06/27/2017 Status: F Source: [place] CULTURE, URINE 5:14 PM [facility] [place] NO COLLECTION INFORMATION GIVEN Urine Culture There are no CLSI standards for interpretation of this Drug/Organism combination. ORGANISM 1: Lactobacillus species [place] Count 11,000-25,000 Performed By: #### L8200.1999, M100.0650 #### [facility] [address] [place], [address] POLICY ANALYST OFFICE VISIT Observed: 06/27/2017 Status: F Source: [place] REPORT 4:15 PM [facility] [place] [facility] [address] [place] [address] OFFICE VISIT Date of Service: 06/27/17 MR#: [id number] Acct: [id number] Name: JUSTYN WEST Ori Rep #: [id number] : 1980 Provider: Evelin Hart MD Age/Sex: 37/F Location: [facility] [place] Status: Signed Intake Vital Signs06/27/17 Height 5 ft 4.75 in 06/27/17 Weight: 190 lb 4 oz 06/27/17 Body Mass Index (BMI) 31.8 06/27/17 Blood Pressure 131/83 Intake Visit Reasons: NOB - LMP 0313 Chief Complaint: NEW OB Equipment Specialist Required: No Is patient in pain?: No Allergies Iodinated Contrast- Oral and IV Dye [Iodinated Contrast Media - IV Dye] Allergy (Verified 01/19/13 06:26) Unknown naproxen sodium [From Aleve] Allergy (Verified 01/19/13 06:24) Unknown Medications Oxybutynin Chloride [Ditropan Xl] 10 mg PO DAILY 01/19/13 [History Confirmed 06/27/17] sertraline 50 mg tablet 50 mg PO QDAY 06/27/17 [History Confirmed 06/27/17] Last Menstral Period: 04/17/17 Zika: Zika virus screening: Negative : No PFSH PFSH Medical History Anxiety with depression (Acute) Surgical History delivery delivered (Acute) H/O dilation and curettage (Acute) Family History Unknown Diabetes Social History Smoking Status: Never smoker alcohol intake: never substance use type: does not use caffeine: Yes what type of physical activity do you participate in: walking seatbelt use: always do you feel safe at home: Yes additional social history: Mega Lindsay Patient is a stay at home mom Pregancy History 8 Elective abortions Hx Para 5 Spontaneous abortions Past Pregnancies Del. DateName GA/Weeks Outcome Route Bth WeighInfant GeLabor LgtAnesthesiDel LocatProvider FOB t n h a n HPI NOB - LMP 0313: Details: JUSTYN WEST is a 37 year old who presents for New OB visit. OB Visit [place]IS Calculator Estimated Delivery Date 01/22/18 Based on LMP (certain) 04/17/17 Current WG 10w 1d Number 1 Comments: crl 3.5 cm fht 165 Expected Delivery Route/Plan Initial Weight: Not Recorded Date Weight BP Urine PrFHR FuHt Pres MoCTX DilationFetal StVisit NoProviderComments E ot v te GA G Effac lucose ed Menstrual History Last Menstral Period: 04/17/17 Reported LMP: definite Normal amount/duration: Yes On hormonal BC at conception: No Antepartum Record Genetic Screening: Congenital Heart Defect: Partner (husbands brother had gastroschesis), Neural Tube Defect: Other, Hemoglobinopathy Or Carrier: Other, Cystic Fibrosis: Other, Chromosome Abnormality: Other, Fabian-Sachs: Other, Hemophilia: Other, Intellectual Disability/Autism: Other, Recurrent Loss/Stillbirth: Other, Other Structural Defect: Other, Other Genetic Disease: Other, Maternal Metabolic Disorder: Other Infection History: Live with someone with TB or Exposed to TB: No, Patient or Partner has history of Genital Herpes: No, Rash or Viral illness since last mentrual period: No, Prior GBS-Infected child: No, History of STD: No, HIV Infection: No, History of Hepatitis: No, Recent travel outside of [place]: No, Concern for Hep exposure: No, Varicella immune: Yes Medical History Medical History: Positive: Depression/ depression, Operations/hospitalizations (cs x 1), Negative: Diabetes, Hypertension, Heart disease, Auto- immune disorder, Kidney disease/UTI, Neurologic/epilepsy, Psychiatric, Hepatitis/liver disease, Varicosities/phlebitis, Thyroid dysfunction, Trauma/domestic violence, History of blood transfusions, D (Rh) Sensitized, Pulmonary (e.g.,TB,Asthma), Seasonal allergies, Drug/latex allergies/reactions, Breast, Fountain Helper surgery, Anesthetic complications, History of abnormal pap, Uterine anomaly/carter, Infertility, Anti-retroviral treatment, Relevant family history, Other ACOG First Trimester First Trimester: Desire for , Alcohol, Tobacco Cessation, Illicit/Recreational Drug/Substance Use, Intimate Partner Violence, Barriers to care, Unstable Housing, Communication Barriers, Environmental/Work Hazards, Anticipated Course of Care, Nurtrition and weight gain, Toxoplasmosis Precations, Use of Any medications, Sexual activity, Exercise, Dental Care, Sauna/Hot tub use, Seat Belt use, Childbirth classes/Hospital facilities, , Travel, Indications for US and Screening for Aneuploidy ROS Const Denies fever(s), Reports system reviewed and no additional complaints, except as docu, Reports fatigue Eyes Reports system reviewed and no additional complaints, except as docu ENT Reports system reviewed and no additional complaints, except as docu Card Denies chest pain, Denies shortness of breath Resp Reports system reviewed and no additional complaints, except as docu, Denies shortness of breath, Denies cough GI Reports nausea, Denies abdominal pain Reports system reviewed and no additional complaints, except as docu Musc Reports system reviewed and no additional complaints, except as docu Skin/Breast Reports system reviewed and no additional complaints, except as docu Neuro Yes system reviewed and no additional complaints, except as docu Psych Reports system reviewed and no additional complaints, except as docu Endo Reports fatigue, Reports system reviewed and no additional complaints, except as docu Exam Const General: healthy appearing, comfortable, no acute distress Orientation: alert [facility] Head: normal to inspection, atraumatic, normocephalic Ears: external ears normal, hearing grossly normal bilaterally Nose: nares normal, external nose normal Mouth: oral mucosae normal Teeth and gingiva: dentition normal Eyes General: appearance normal, both eyes and all related structures Neck Neck: no lymphadenopathy, supple, normal visual inspection Thyroid: thyroid normal Chest Chest palpation AND inspection: normal inspection of the chest Breast inspection: normal inspection of the breasts, normal inspection of the axillae Breast palpation: normal palpation of the breasts, normal palpation of the axillae Resp Effort AND Inspection: normal respiratory effort GI Inspection: normal to inspection Palpation: soft, no hepatosplenomegaly General: bladder normal to palpation External Female Exam: normal external appearance, normal appearance of the urethra Urethra: normal appearance of the urethra Speculum Exam - Vagina: normal appearance of the vagina, normal vaginal discharge Speculum Exam - Cervix: normal appearance of the cervix Bimanual Exam- Vagina AND Uterus: bladder normal to palpation, normal bimanual exam, uterus non-tender, other Bimanual Exam- Adnexa, other: adnexae non-tender Skin General: no rashes or lesions noted Neuro Motor: muscle tone normal throughout, no movement abnormalities noted Extrem General: normal to inspection, full ROM Assessment AND Plan Problems 1. Encounter for supervision of other normal in first trimester Z34.81 2. History of delivery affecting O34.219 Medications Discontinued: oxycodone-acetaminophen 5-325 mg Discontinued Reason: 1 - 2 tabs PO Q4H PRN PRN Pain Order Completed Supplemental Info ACOG book given and patient encouraged to read about nutrition, exercise, weight gain, and food avoidance in . Coding Level of Care Code OB Routine Diagnoses Encounter for supervision of other normal in first trimester Z34.81 Normal : other normal Trimester: first trimester History of delivery affecting O34.219 06/27/17 1615 <Electronically signed by Evelin Hart MD> Date Evelin Hart MD Cosigner Signature: Date (if applicable) CC: PROGRESS Observed: 05/08/2017 Status: COMPLETED Source: [place] 3:39 PM [facility] REPOSITORY O ID: [id number] Author: Kaitlyn Gray) [place] Service: (none) Author Type: Nurse Practitioner Type: Progress Notes Filed: 05/08/2017 4:44 PM Note Text: [employer] Consultant offered: Patient declines. Justyn West is a 37 year old who presents for her annual gynecologic exam with complaints, spotting. Pt is having irregular spotting in between menses. She also started taking her Zoloft again in Feb for anxiety but states that she is still feeling tired and low energy and mild anxiety at times. Menses: cycles every 25-30 days and 3-5 days of flow. 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 - Migraine, unspecified, with intractable migraine, so stated, without mention of status migrainosus Migraine - Miscarriage 02/2005 - Miscarriage 01/2012 - Other specified disorder of bladder irritable bladder - Tachycardia exercise induced tachycardia PAST SURGICAL HISTORY Procedure Laterality Date - DELIVERY ONLY , low cervical - COLONOSCOP W/ OR W/O [facility] SPEC Colonoscopy - DANDC, DIAG AND/OR THERAPEUTIC Dilation AND curettageX2 - EGD W/O OR W/BRUSH/WASH EGD FAMILY HISTORY Problem Relation Age of Onset - Diabetes Mother - Diabetes Maternal Grandmother - Cancer Maternal Grandmother - Cancer Maternal Grandfather PANCREATIC - GI Paternal Grandmother - Diabetes Maternal Aunt x2 - Lipids Maternal Uncle - Diabetes Maternal Uncle - Psychiatry Maternal Uncle BIPOLAR - Diabetes Maternal Uncle - Diabetes Maternal Aunt - Diabetes Maternal Uncle SOCIAL HISTORY Social History Substance Use Topics - Smoking status: Former Smoker Packs/day: 0.50 Years: 5.00 Quit date: 03/08/2003 - Smokeless tobacco: Never Used - Alcohol use Yes Comment: Seldom REVIEW OF SYSTEMS Abdomen: No abdominal pain, nausea, vomiting, diarrhea, or constipation. No bloating, early satiety, indigestion, or increased flatulence. Bladder: No dysuria, gross hematuria, urinary frequency, or incontinence. urgency Breast: No breast lumps, nipple d/c, overlying skin changes, redness or skin retraction. Allergies and current medication updated:Yes EXAM: Ht 5' 4.567 (1.64m) Wt 185 lb (83.9kg) BMI 31.20 kg/(m2). GENERAL: pleasant, female in no apparent distress HEENT: Normocephalic, atraumatic, mucus membranes moist and no lesions NECK: Supple, full range of motion, no adenopathy and thyroid normal DERMATOLOGY: Normal, without lesions, non-icteric and non-hirsute BREAST: soft, non-tender, symmetric, no dominant mass, normal nipple-areolar complex, no lymphadenopathy and no nipple discharge CHEST: Normal inspiratory effort ABDOMEN: soft, non-tender and no masses PELVIC: external genitalia normal, normal Bartholin's glands, urethra, Fox's glands, no vulvar lesions, no cervical lesions, good vaginal support, physiologic discharge present, normal appearing perineal body and perianal region, well estrogenized BIMANUAL: uterus normal size, shape and consistency, no adnexal masses, non-tender and no cervical motion tenderness RECTOVAGINAL: deferred. NEURO: alert and oriented x3,exam grossly non-focal EXTREMITIES: normal ASSESSMENT/PLAN: 1) Health maintenance: Pap/HPV up to date. Mammogram starting age 40. Nutrition, exercise and routine health maintenance exams reviewed. Calcium/Vitamin D supplementation information provided. 2) Contraception: none. Contraceptive options reviewed and information provided. 3) STD screening: Declined STD check. 4) Follow up one year or sooner as needed 5) Increased Zoloft to 75mg pt to follow up in 6-8 weeks. 6) Pt does not want to take an OCP for the spotting but may consider the Mirena if they make a final decision to not have anymore children Kaitlyn Ferraro APRN.BELLPERSON CNOV Observed: 05/08/2017 Status: COMPLETED Source: [place] 3:30 PM [facility] [place] REPOSITORY Office Visit (WOOB) JUSTYN WEST ([id number]) 1980 F Date Time Provider Department 05/08/17 3:30 PM KAITLYN FERRARO ([place]BBA) WOOB During your visit today, we recorded the following information about you: Blood pressure Weight Height Last Period 120/74 83.9 kg 1.64 m 04/27/17 Kaitlyn Ferraro APRN.CNP 05/08/2017 4:44 PM Signed [employer] Consultant offered: Patient declines. Justyn West is a 37 year old who presents for her annual gynecologic exam with complaints, spotting. Pt is having irregular spotting in between menses. She also started taking her Zoloft again in Feb for anxiety but states that she is still feeling tired and low energy and mild anxiety at times. Menses: cycles every 25-30 days and 3-5 days of flow. 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 - Migraine, unspecified, with intractable migraine, so stated, without mention of status migrainosus Migraine - Miscarriage 02/2005 - Miscarriage 01/2012 - Other specified disorder of bladder irritable bladder - Tachycardia exercise induced tachycardia PAST SURGICAL HISTORY Procedure Laterality Date - DELIVERY ONLY , low cervical - COLONOSCOP W/ OR W/O [facility] SPEC Colonoscopy - DANDamp;C, DIAG AND/OR THERAPEUTIC Dilation ANDamp; curettageX2 - EGD W/O OR W/BRUSH/WASH EGD FAMILY HISTORY Problem Relation Age of Onset - Diabetes Mother - Diabetes Maternal Grandmother - Cancer Maternal Grandmother - Cancer Maternal Grandfather PANCREATIC - GI Paternal Grandmother - Diabetes Maternal Aunt x2 - Lipids Maternal Uncle - Diabetes Maternal Uncle - Psychiatry Maternal Uncle BIPOLAR - Diabetes Maternal Uncle - Diabetes Maternal Aunt - Diabetes Maternal Uncle SOCIAL HISTORY Social History Substance Use Topics - Smoking status: Former Smoker Packs/day: 0.50 Years: 5.00 Quit date: 03/08/2003 - Smokeless tobacco: Never Used - Alcohol use Yes Comment: Seldom REVIEW OF SYSTEMS Abdomen: No abdominal pain, nausea, vomiting, diarrhea, or constipation. No bloating, early satiety, indigestion, or increased flatulence. Bladder: No dysuria, gross hematuria, urinary frequency, or incontinence. urgency Breast: No breast lumps, nipple d/c, overlying skin changes, redness or skin retraction. Allergies and current medication updated:Yes EXAM: Ht 5' 4.567ANDquot; (1.64m) Wt 185 lb (83.9kg) BMI 31.20 kg/(m2). GENERAL: pleasant, female in no apparent distress HEENT: Normocephalic, atraumatic, mucus membranes moist and no lesions NECK: Supple, full range of motion, no adenopathy and thyroid normal DERMATOLOGY: Normal, without lesions, non-icteric and non-hirsute BREAST: soft, non-tender, symmetric, no dominant mass, normal nipple-areolar complex, no lymphadenopathy and no nipple discharge CHEST: Normal inspiratory effort ABDOMEN: soft, non-tender and no masses PELVIC: external genitalia normal, normal Bartholin's glands, urethra, Fox's glands, no vulvar lesions, no cervical lesions, good vaginal support, physiologic discharge present, normal appearing perineal body and perianal region, well estrogenized BIMANUAL: uterus normal size, shape and consistency, no adnexal masses, non-tender and no cervical motion tenderness RECTOVAGINAL: deferred. NEURO: alert and oriented x3,exam grossly non-focal EXTREMITIES: normal ASSESSMENT/PLAN: 1) Health maintenance: Pap/HPV up to date. Mammogram starting age 40. Nutrition, exercise and routine health maintenance exams reviewed. Calcium/Vitamin D supplementation information provided. 2) Contraception: none. Contraceptive options reviewed and information provided. 3) STD screening: Declined STD check. 4) Follow up one year or sooner as needed 5) Increased Zoloft to 75mg pt to follow up in 6-8 weeks. 6) Pt does not want to take an OCP for the spotting but may consider the Mirena if they make a final decision to not have anymore children Kaitlyn Ferraro APRN.BELLPERSON Referring Provider: SELF [200] Allergies As of Date: 05/08/2017 Noted Allergy Reaction ALEVE (NAPROXEN) 03/02/2006 IBUPROFEN 02/06/2015 5 - Intolerance IODINE DYE (CONTRAST DYE) 03/02/2006 Date Reviewed: 05/08/2017 Reviewed by: Kaitlyn Gray) [facility] - Fully Assessed Reason for Visit: Yearly Exam [187] Primary Visit Diagnosis:Encounter for gynecological examination (general) (routine) without abnormal findings [Z01.419] Other Visit Diagnoses:Screening for cervical cancer [Z12.4] Encounter for screening for human papillomavirus (HPV) [Z11.51] Encounter for gynecological examination with abnormal finding [Z01.411] Anxiety [F41.9] Order(s):oxybutynin ER (DITROPAN XL) 10 mg 24 hr tabletTake 1 tablet by mouth once daily.Disp: 90 tabletRfl: 3 sertraline (ZOLOFT) 50 mg tabletTake 1.5 tablets by mouth once daily.Disp: 90 tabletRfl: 1 Prescriptions as of 05/08/2017 Sig: OXYBUTYNIN CHLORIDE ER 10 MG * Take 1 tablet by mouth once d* MAGNESIUM ORAL Take by mouth. SERTRALINE 50 MG TABLET Take 1.5 tablets by mouth onc* Problem List As Of Date 05/08/2017 Noted Resolved SUPRF HIGH RISK NEC [V23.89] [O09.899]INVALID FOR*04/10/2011 History of [Z98.891] INVALID FOR*01/22/2012 More... Obesity, unspecified [E66.9] INVALID FOR*04/29/2014 More... History of section [Z98.891] INVALID FOR*01/15/2012 More... History of labor [Z87.51] INVALID FOR*01/22/2012 More... History of depression [Z86.59] INVALID FOR*01/22/2012 More... History of hemorrhoids [Z87.19] INVALID FOR*01/22/2012 More... History of cardiac arrhythmia [Z86.79] INVALID FOR*01/22/2012 More... Family history of defect [Z82.79] INVALID FOR*01/22/2012 More... Irritable bladder [N32.89] INVALID FOR*01/22/2012 More... Hx of migraine headaches [Z86.69] INVALID FOR*01/22/2012 More... Immunization due [Z23] INVALID FOR*01/22/2012 More... History of loss in prior , c*INVALID FOR*04/29/2014 More... History of [Z98.891] INVALID FOR*04/29/2014 More... History of labor [Z87.51] INVALID FOR*04/29/2014 More... History of depression [Z86.59] INVALID FOR*04/29/2014 More... History of hemorrhoids [Z87.19] INVALID FOR*04/29/2014 More... Exercise-induced tachycardia [R00.0] INVALID FOR*04/29/2014 More... Family history of congenital anomaly [Z82.79] INVALID FOR*04/29/2014 More... Irritable bladder [N32.89] INVALID FOR*04/29/2014 More... Immunization due [Z23] INVALID FOR*04/29/2014 More... Supervision of other normal [Z34.80] INVALID FOR*04/29/2014 More... 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 SERTRALINE 50 MG TABLET 90 t* 1 05/08/2017 Route: ORAL Sig: Take 1.5 tablets by mouth once daily. Medications Discontinued During This Encounter oxybutynin ER (DITROPAN XL) 10 mg 24* 90 t* 3 11/23/2015 05/08/2017 Sig: TAKE 1 TABLET DAILY Disc: Reason for discontinue is not on file. sertraline (ZOLOFT) 50 mg tablet 30 t* 1 03/05/2017 05/08/2017 Route: ORAL Sig: Take 1 tablet by mouth once daily. Disc: Reason for discontinue is not on file. Disposition: Return in 1 year (on 05/08/2018) for Annual Exam. Follow-up and Disposition History Recorded Encounter Status:Closed by KAITLYN FERRARO on 05/08/17 OBSOLETE Observed: 03/05/2017 Status: COMPLETED Source: [place] 12:00 AM [facility] REPOSITORY Refill (WOOB) JUSTYN WEST ([id number]) 1980 F Date Time Provider Department 03/05/17 MARINA COLE During your visit today, we recorded the following information about you: Karoline Bj BALLARD 03/05/2017 10:00 AM Signed Pt calling and stated that she is needing a refill on her Zoloft, pt stated that this was originally rx'd by our office by Dr Hart. I did explain that this is not a routine medication that our office prescribes as it needs to be monitored by her pcp. Pt stated that she was almost out of this medication. Pt was also scheduled for a yearly exam. Karoline John MD 03/05/2017 11:49 AM Signed I will order a refill until she is seen by new provider. I will not continue to refill this medication it will be up to her new provider to give remaining refills for the year. I would recommend she also contact PCP for continue surveillance of this medication. Kiki Martinez RN 03/05/2017 11:51 AM Signed Patient notified Kiki Martinez RN Allergies As of Date: 03/05/2017 Noted Allergy Reaction ALEVE (NAPROXEN) 03/02/2006 IBUPROFEN 02/06/2015 5 - Intolerance IODINE DYE (CONTRAST DYE) 03/02/2006 Date Reviewed: 08/25/2016 Reviewed by: Eagle (Chart Computer) [facility] - Fully Assessed Reason for Visit: Refill Request [94] Visit Diagnoses:Screening for cervical cancer [Z12.4] Encounter for screening for human papillomavirus (HPV) [Z11.51] Encounter for gynecological examination with abnormal finding [Z01.411] Anxiety [F41.9] Order(s):sertraline (ZOLOFT) 50 mg tabletTake 1 tablet by mouth once daily.Disp: 30 tabletRfl: 1 Prescriptions as of 03/05/2017 Sig: SERTRALINE 50 MG TABLET Take 1 tablet by mouth once d* MAGNESIUM ORAL Take by mouth. OXYBUTYNIN CHLORIDE ER 10 MG * TAKE 1 TABLET DAILY Problem List As Of Date 03/05/2017 Noted Resolved SUPRF HIGH RISK NEC [V23.89] [O09.899]INVALID FOR*04/10/2011 History of [Z98.891] INVALID FOR*01/22/2012 More... Obesity, unspecified [E66.9] INVALID FOR*04/29/2014 More... History of section [Z98.891] INVALID FOR*01/15/2012 More... History of labor [Z87.51] INVALID FOR*01/22/2012 More... History of depression [Z86.59] INVALID FOR*01/22/2012 More... History of hemorrhoids [Z87.19] INVALID FOR*01/22/2012 More... History of cardiac arrhythmia [Z86.79] INVALID FOR*01/22/2012 More... Family history of defect [Z82.79] INVALID FOR*01/22/2012 More... Irritable bladder [N32.89] INVALID FOR*01/22/2012 More... Hx of migraine headaches [Z86.69] INVALID FOR*01/22/2012 More... Immunization due [Z23] INVALID FOR*01/22/2012 More... History of loss in prior , c*INVALID FOR*04/29/2014 More... History of [Z98.891] INVALID FOR*04/29/2014 More... History of labor [Z87.51] INVALID FOR*04/29/2014 More... History of depression [Z86.59] INVALID FOR*04/29/2014 More... History of hemorrhoids [Z87.19] INVALID FOR*04/29/2014 More... Exercise-induced tachycardia [R00.0] INVALID FOR*04/29/2014 More... Family history of congenital anomaly [Z82.79] INVALID FOR*04/29/2014 More... Irritable bladder [N32.89] INVALID FOR*04/29/2014 More... Immunization due [Z23] INVALID FOR*04/29/2014 More... Supervision of other normal [Z34.80] INVALID FOR*04/29/2014 More... 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 Encounter Status:Closed by KIKI MARTINEZ RN on 03/05/17 ALLERGIES ALLERGIES DATE TYPE / CODE NAME / CODE REACTION SEVERITY SOURCE 01/02/2018 Drug naproxen Unknown Unknown Lamar Allergy/416 sodium/[id number] [facility] 832902([facility] 1(RXNORM) [facility] ED CT) Repository 01/02/2018 Drug Iodinated Unknown Unknown Milagros Allergy/416 Contrast- Oral [facility] 784809([facility] ED CT) Dye/[id number](R Repository XNORM) 02/06/2015 DRUG IBUPROFEN INTOLERANCE [facility] INGREDI/[address] [place] 038078(SNOM Repository ED CT) 03/02/2006 [facility] [place] 522532(SNOM Repository ED CT) 03/02/2006 DRUG CONTRAST DYE [facility]/[address] [place] 141509(SNOM Repository ED CT) ENCOUNTERS ENCOUNTERS ADMIT/DISCHARGE ACCOUNT ADMITTING ENCOUNTER LOCATION SOURCE NUMBER CLASS 01/03/2018/01/06/20 [id number] [facility] [place] Waters Encounter [facility] ing:WPRoom: Repository AV912Nmn: 1 01/03/2018 [id number] [facility] Ambulatory BMSBuilding:Beto Waters MS.CF.[facility] Hospital Repository 01/03/2018 [id number] [facility], Ambulatory BMSBuilding:Beto Waters MS.CF.[facility] Hospital Repository 01/03/2018 [id number] [facility], Ambulatory BMSBuilding:Beto Waters MS.CF.[facility] Hospital Repository 01/02/2018 [id number] Ambulatory [facility] Hospital ing:LABSPEC Repository 01/02/2018/01/03/20 [id number] Ambulatory BMSBuilding:B Milagros 18 MS.[facility] Hospital Repository 12/24/2017 [id number] Ambulatory [facility] Hospital ing:US Repository 12/24/2017 [id number] Ambulatory [facility] Hospital ing:PAVLAB Repository 12/24/2017/12/25/19 [id number] Ambulatory BMSBuilding:B Milagros 18 MS.[facility] Hospital Repository 12/21/2017 [id number] Ambulatory BMSBuilding:B Milagros MS.CF.[facility] Hospital Repository 12/21/2017/12/22/19 [id number] Ambulatory BMSBuilding:B Milagros 18 MS.[facility] Hospital Repository 12/19/2017/12/20/19 [id number] Ambulatory BMSBuilding:B Milagros 18 MS.[facility] Hospital Repository 12/19/2017/12/20/19 [id number] Ambulatory [address] Hospital ing:WPOUTRoom Repository : WP012 12/03/2017/12/04/19 [id number] Ambulatory BMSBuilding:B Lamar 18 MS.[facility] Hospital Repository 11/16/2017/11/17/19 [id number] Ambulatory BMSBuilding:B Milagros 18 MS.[facility] Hospital Repository 11/02/2017 [id number] Ambulatory [facility] Hospital ing:POLAB3 Repository 11/02/2017/11/03/19 [id number] Ambulatory BMSBuilding:B Milagros 18 MS.[facility] Hospital Repository 09/28/2017 [id number] Ambulatory [facility] Hospital ing:US Repository 09/28/2017/09/29/19 [id number] Ambulatory BMSBuilding:Beto Milagros 18 MS.[facility] Repository 08/31/2017 [id number] Ambulatory [facility] Hospital ing:US Repository 08/29/2017/08/31/19 [id number] Ambulatory [address] Repository 08/21/2017/08/22/19 [id number] Ambulatory BMSBuilding:Beto Milagros 18 MS.[facility] Repository 07/24/2017 [id number] Ambulatory [facility] Hospital ing:LAB Repository 07/24/2017/07/25/19 [id number] Ambulatory BMSBuilding:Beto Lamar 18 MS.[facility] Repository 06/27/2017 [id number] Ambulatory [facility] Hospital ing:LABSPEC Repository 06/27/2017/06/28/19 [id number] Ambulatory BMSBuilding:Beto Linares 18 MS.[facility] Repository 05/08/2017/05/11/19 [id number] Ambulatory [address] Repository PAYERS PAYERS ENCOUNTER GUARANTOR PAYER SUBSCRIBER SOURCE 01/03/2018 SANDEE YUNG1 Primary [address], Insurance:ANTHEMPolic DENNISONDOB: [facility] [place] [address]Eii: y Number: [id number] Hospital [id number] Repository () Date:1559-40-81YS [address] [place] [address]PS: 01/03/2018 Secondary NOT GIVENUNK Lamar Insurance:SELF PAY [facility] Number: Effective Repository Date:2018-01-03 01/03/2018 SANDEE YUNG1 Primary SANDE[address] [place], Insurance:ANTHEMPolic DENNISONDOB: [facility] [place] [address]Tzh: y Number: [id number] Hospital [id number] Repository () Date:7049-58-24DB [address]WN, [place] [address]EQ: 01/03/2018 Secondary NOT GIVENUNK Lamar Insurance:SELF PAY [facility] Number: Effective Repository Date:2018-01-03 01/03/2018 SANDEE LLANOS Primary SANDEE [address], Insurance:ANTHEMPolic DENNISONDOB: [place] [address]Iux: y Number: [id number] Hospital [id number] Repository (HP) Date:4379-46-25GV [address]ZYVN, [place] [address]QR: 01/03/2018 Secondary NOT GIVENUNK Milagros Insurance:SELF PAY [facility] Number: Effective Repository Date:2018-01-03 01/03/2018 SANDEE LLANOS Primary SANDEE [address]ina[address] [place], Insurance:ANTHEMPolic DENNISONDOB: [place] [address]Ppl: y Number: [id number] Hospital [id number] Repository (HP) Date:1350-00-48BL [address]DYGKWXQ, [place] [address]FZ: 01/03/2018 Secondary NOT GIVENUNK Milagros Insurance:SELF PAY [facility] Number: Effective Repository Date:2018-01-03 01/02/2018 SANDEE LLANOS Primary SANDEE Linares [address] [place], Insurance:ANTHEMPolic DENNISONDOB: [place] [address]Vzh: y Number: [id number] Hospital [id number] Repository (HP) Date:9708-27-95CN [address]TQZDTRL, [place] [address]YJ: 01/02/2018 Secondary NOT GIVENUNK Lamar Insurance:SELF PAY [facility] Number: Effective Repository Date:2018-01-02 01/02/2018 SANDEE LLANOS Primary SANDEE [address] [place], Insurance:ANTHEMPolic DENNISONDOB: [place] [address]Dyv: y Number: [id number] Hospital [id number] Repository (HP) Date:2375-29-97IW [address] [place] [address]SO: 01/02/2018 Secondary NOT GIVENUNK Milagros Insurance:SELF PAY [facility] Number: Effective Repository Date:2018-01-02 12/24/2017 SANDEE YUNG1 Primary SANDEE [address], Insurance:ANTHEMPolic DENNISONDOB: [place] [address]Sxt: y Number: [id number] Hospital [id number] Repository () Date:3741-93-44RO [address] [place] [address]BD: 12/24/2017 Secondary NOT GIVENUNK Milagros Insurance:SELF PAY [facility] Number: Effective Repository Date:2017-12-24 12/24/2017 SANDEE YUNG1 Primary SANDEE [address] [place], Insurance:ANTHEMPolic DENNISONDOB: [place] [address]Zwj: y Number: [id number] Hospital [id number] Repository () Date:8090-36-92XV [address]BYBYKZB, [place] [address]EU: 12/24/2017 Secondary NOT GIVENUNK Lamar Insurance:SELF PAY [facility] Number: Effective Repository Date:2017-12-24 12/24/2017 SANDEE YUNG1 Primary SANDEE [address] [place], Insurance:ANTHEMPolic DENNISONDOB: [place] [address]Dmz: y Number: [id number] Hospital [id number] Repository (HP) Date:5151-78-83SU [address]UJEVZAY, [place] [address]GF: 12/24/2017 Secondary NOT GIVENUNK Lamar Insurance:SELF PAY [facility] Number: Effective Repository Date:2017-12-24 12/21/2017 SANDEE YUNG1 Primary NOT GIVENUNK Milagros [address], Insurance:SELF PAY [facility] [place] [address]Hpk: [facility] Number: Effective Repository (HP) Date:2017-12-21 12/21/2017 SANDEE [id number] Primary SAN[address] [place], Insurance:ANTHEMPolic DENNISONDOB: [place] [address]Tfm: y Number: [id number] Hospital [id number] Repository () Date:0087-89-35OE [address]KRHERJK, [place] [address]RH: 12/21/2017 Secondary NOT GIVENUNK Lamar Insurance:SELF PAY [facility] Number: Effective Repository Date:2017-12-21 12/19/2017 SANDEE [id number] Primary [address]E [address] [place], Insurance:ANTHEMPolic DENNISONDOB: [facility] [place] [address]Hir: y Number: [id number] Hospital [id number] Repository () Date:5380-88-84BJ [address]UFMKUVP, [place] [address]DD: 12/19/2017 Secondary NOT GIVENUNK Milagros Insurance:SELF PAY [facility] Number: Effective Repository Date:2017-12-19 12/19/2017 SANDEE [id number] Primary [address]E [address] [place], Insurance:ANTHEMPolic DENNISONDOB: [facility] [place] [address]Vny: y Number: [id number] Hospital [id number] Repository () Date:2277-77-34YU [address]MULVVJK, [place] [address]LS: 12/19/2017 Secondary NOT GIVENUNK Lamar Insurance:SELF PAY [facility] Number: Effective Repository Date:2017-12-19 12/03/2017 Sandee [id number] Primary Sandee [address] [place], Insurance:ANTHEMPolic DennisonDOB: [place] [address]Hcs: y Number: [id number] Hospital [id number] Repository () Date:7071-74-33[address]LXNZDIG, [place] [address]JE: 12/03/2017 Secondary NOT GIVENUNK Milagros Insurance:SELF PAY [facility] Number: Effective Repository Date:2017-11-16 11/16/2017 Sandee Toussainton561 Primary Sandee [address] [place], Insurance:ANTHEMPolic DennisonDOB: [place] [address]Lkn: y Number: [id number] Hospital [id number] Repository () Date:9829-04-47IR [address]GVXWACNOS[address] BEJARANO [address]HU: 11/16/2017 Secondary NOT GIVENUNK Milagros Insurance:SELF PAY [facility] Number: Effective Repository Date:2017-11-16 11/02/2017 Sandee Toussainton561 Primary Sandee [address] [place], Insurance:ANTHEMPolic DennisonDOB: [place] [address]Klf: y Number: [id number] Hospital [id number] Repository (HP) Date:9420-59-09PL [address]CHPFTCDOSCAR BEJARANO [address]AA: 11/02/2017 Secondary NOT GIVENUNK Milagros Insurance:SELF PAY [facility] Number: Effective Repository Date:2017-11-02 11/02/2017 Sandee Yung1 Primary Sandee Lina[address] [place], Insurance:ANTHEMPolic DennisonDOB: [place] [address]Eel: y Number: [id number] Hospital [id number] Repository (HP) Date:9191-15-72QO [address]TKWYYXXOS[address] BEJARANO [address]HT: 11/02/2017 Secondary NOT GIVENUNK Lamar Insurance:SELF PAY [facility] Number: Effective Repository Date:2017-11-02 09/28/2017 Sandee Toussainton561 Primary Sandee [address] [place], Insurance:ANTHEMPolic DennisonDOB: [place] [address]Svi: y Number: [id number] Hospital [id number] Repository () Date:3674-32-89JB [address]LZDDRJD, [place] [address]NC: 09/28/2017 Secondary NOT GIVENUNK Lamar Insurance:SELF PAY [facility] Number: Effective Repository Date:2017-09-03 09/28/2017 Sandee Yung1 Primary Sandee L[address] [place], Insurance:ANTHEMPolic DennisonDOB: [place] [address]Qvb: y Number: [id number] Hospital [id number] Repository () Date:5883-18-87SK [address]CSDENHA, [place] [address]LU: 09/28/2017 Secondary NOT GIVENUNK Milagros Insurance:SELF PAY [facility] Number: Effective Repository Date:2017-09-28 08/31/2017 Sandee Llanos Primary Sandee Linares [address] [place], Insurance:ANTHEMPolic DennisonDOB: [place] [address]Yxq: y Number: [id number] Hospital [id number] Repository (HP) Date:0074-14-53OZ [address]LKXFPHO, [place] [address]HL: 08/31/2017 Secondary NOT GIVENUNK Lamar Insurance:SELF PAY [facility] Number: Effective Repository Date:2017-08-21 08/21/2017 Sandee Llanos Primary Sandee Linares [address] [place], Insurance:ANTHEMPolic DennisonDOB: [place] [address]Yhn: y Number: [id number] Hospital [id number] Repository (HP) Date:9295-29-21NI [address]MDUQFPI, [place] [address]BI: 08/21/2017 Secondary NOT GIVENUNK Lamar Insurance:SELF PAY [facility] Number: Effective Repository Date:2017-08-21 07/24/2017 Sandee Llanos Primary Sandee Lina[address] Lina Lamam, Insurance:ANTHEMPolic DennisonDOB: [place] [address]Slm: y Number: [id number] Hospital [id number] Repository (HP) Date:5991-03-61UL [address]TCXCLIG, [place] [address]FD: 07/24/2017 Secondary NOT GIVENUNK Milagros Insurance:SELF PAY [facility] Number: Effective Repository Date:2017-07-24 07/24/2017 Sandee [address] Sandee [address] [place], Insurance:ANTHEMPolic DennisonDOB: [place] [address]Tfe: y Number: [id number] Hospital [id number] Repository () Date:2456-37-48KA [address] [place] [address]AW: 07/24/2017 Secondary NOT GIVENUNK Milagros Insurance:SELF PAY [facility] Number: Effective Repository Date:2017-07-24 06/27/2017 Sandee Yung1 Primary Sandee [address], Insurance:ANTHEMPolic DennisonDOB: [place] [address]Ieb: y Number: [id number] Hospital [id number] Repository () Date:1197-34-92UK [facility] 514002QNXWUIM, [place] [address]BY: 06/27/2017 Secondary NOT GIVENUNK Milagros Insurance:SELF PAY [facility] Number: Effective Repository Date:2017-06-27 06/27/2017 Sandee Gurrola Primary Sandee [address] Insurance:ANTHEMPolic DennisonDOB: [place] y Number: [id number] Hospital [address]Gdo: (790) [id number] Repository [phone] () Date:8704-64-08GS [address]MRTYYVT, [place] [address]PN: 06/27/2017 Secondary NOT GIVENUNK Lamar Insurance:SELF PAY [facility] Number: Effective Repository Date:2017-06-27
== END ==
PROVIDERS: Referring Provider Obstetrics & Gynecology; Visit Provider Obstetrics & Gynecology
DX: Z34.90 Encounter for supervision of normal pregnancy, unspecified, unspecified trimester (principal)
CPT/HCPCS: 87077; 87081; 87186

== ENCOUNTER 2018-01-03 16:10 | Inpatient (IN) | payer BC, SELFPAY ==
[2018-01-02 11:23] VITALS: BMI 37.4
[2018-01-03 15:49] VITALS: BMI 38.0
[2018-01-03 16:09] LABS: ROM Internal Control Test YES-OK TO RESULT pt. (Internal QC)
[2018-01-03 16:11] LABS: ROM Patient Test POSITIVE (Negative)
[2018-01-03] MEDS: Lactated Ringers 1,000 ML 50 ML IV ×2 (16:45→21:19)
[2018-01-03 17:07] LABS: Hemoglobin 14.3 g/dl (12.0-15.0); Mean Corpuscular Hgb 29.1 pg (27.0-32.0); Mean Corpuscular Volume 85.4 fL (81-99); Mean Platelet Vol. 10.6 fl (6.2-12.0); Platelet Count 269 K/mm3 (150-450); RBC Distribution Width CV 13.1 % (11.6-14.6); RBC Distribution Width SD 40.8 fl (35.1-43.9); Red Blood Count 4.92 M/mm3 (4.2-5.4)
[2018-01-03 17:11] LABS: Scan Indicated on CBC? Y/N NO
[2018-01-03 18:02] LABS: Group B Strep DNA By PCR POSITIVE (Negative); Probe Check PASS
[2018-01-03] MEDS: Oxytocin 30 units/NS 500 ml 30 UNITS/500 ML IV.SOLN IV (20:10)
--- NOTE | 2018-01-03 21:17 | HP.PCM_ITS ---
- Problem List (1) SROM (spontaneous rupture of membranes) Status: Acute (2) Status: Acute Qualifiers: Comment: genetic, carrier, and ntd screening declined. anatomy us normal. (3) History of delivery, currently Status: Acute Comment: h/o ltcs then 4 successful VBACs, plan this delivery (4) Supervision of normal Status: Acute Qualifiers: Comment: PRR 01/22/18 girl PC Mariano Vidal Cole, Sawyer, Magdy Jair History Date of Admission: 01/03/18 Final PARIS: 01/22/18 Gestational age: 37 Weeks and 2 Days History of this : This is a 37 year-old, at 37 weeks gestational age presents with SROM clear fluid. she has had irregular contractions. she has had a healthy uncomplicated . she has a history of 4 successful vbacs. Medical History: Medical History (Last Reviewed 01/02/18 @ 11:23 by Roseline Perez) Anxiety with depression F41.8 Surgical History: Surgical History (Last Reviewed 01/02/18 @ 11:23 by Roseline Perez) delivery delivered O82 H/O dilation and curettage Z98.890 Allergies Iodinated Contrast- Oral and IV Dye [Iodinated Contrast Media - IV Dye] Allergy (Verified 01/02/18 11:22) Unknown naproxen sodium [From Aleve] Allergy (Verified 01/02/18 11:22) Unknown unknown reaction to Aleve Home Medications: Home Medications Oxybutynin Chloride [Ditropan Xl] 10 mg PO DAILY 01/19/13 blood pressure monitor kit See Dose Instructions .ROUTE .MEDSUPPLY #1 ea 12/24/17 Sertraline HCl [Zoloft] 50 mg PO QDAY 01/03/18 Smoking Status: Former smoker Alcohol: None Number of Fetus(es): 1 Heart Tracing: fht 140s moderate variability reactive no decels. cat I tracing TOCO Analysis: q 3-6 History Past Pregnancies: first one was a c section and 4 subsequent vbacs Labs: Mom's Problem List Problem Status Onset Code SROM (spontaneous rupture of membranes) Acute Mom's Labs & Results 01/03/18 01/03/18 01/03/18 15:40 16:45 16:45 WBC 12.0 H RBC 4.92 Hgb 14.3 Hct 42.0 MCV 85.4 MCH 29.1 MCHC 34.0 RDW 13.1 RDW Differential 40.8 Plt Count 269 MPV 10.6 Vag Amniotic Fld Detect POSITIVE H Group B Strep DNA Specimen Comment Blood Type O POSITIVE Antibody Screen NEGATIVE 01/03/18 16:45 WBC RBC Hgb Hct MCV MCH MCHC RDW RDW Differential Plt Count MPV Vag Amniotic Fld Detect Group B Strep DNA POSITIVE H Specimen Comment Not Reportable Blood Type Antibody Screen Course Did the patient receive Yes care? Labs Blood Type: O RH: POSITIVE RPR/VDRL/Syphilis Nonreactive Rubella status Immune HbSAg Negative Date Done: 07/24/17 Chlamydia Negative Gonorrhea Negative HIV/AIDS Non-Reactive Group B Strep: Collected on Admission Current Obstetrical History Gestational Diabetes No Incompetent Cervix No Infertility No IUGR No Macrosomia No Hypertension/Pre-eclampsia Yes: lab test normal Placenta Previa/Abruption No PTL/PROM No Uterine anomaly No Oligohydramnios No Polyhydramnios No Multiple gestation No Past Medical History Asthma No Diabetes No Hypertension No Heart disease No Mitral valve prolapse No Neurologic/Seizure disorder/ No Migraines Kidney disease No Liver disease No Varicosities No Clotting disorders/Hx of DVT No Thyroid Dysfunction No Other medical diseases No Psychiatric disorders Yes: anxiety, depression Major trauma No Abnormal PAP smear No Sleep apnea No Mammogram in the last 2 years No Social History Marital Status: Alleged father [place] Hx Smoking Yes Smoking Status Former smoker Expected Delivery Method: Review of Systems Constitutional: Denies: Fever, Malaise Eyes: Denies: Blurred vision, Vision Change HEENT: Denies: Head Aches, Visual Changes Cardiovascular: Denies: Chest Pain, Palpitations Respiratory: Denies: Cough, Shortness of Breath, Wheezing Gastrointestinal: Denies: Abdominal Pain, Diarrhea, Nausea, Vomiting Genitourinary: Denies: Dysuria, Hematuria Musculoskeletal: Denies: Joint Pain, Muscle pain Skin: Denies: Lesions, Rash Neurological: Denies: Blurred vision, Focal weakness, Headaches Psychiatric: Denies: Anxiety, Depression Endocrine: Denies: Heat/ Cold Intolerance Hematologic/ Lymphatic: Denies: Easy Bruising, Easy Bleeding Physical Exam General: Alert, Cooperative, No apparent distress HEENT: Atraumatic, Normocephalic. Negative for: Thyromegaly, Lymphadenopathy Cardiovascular: Regular rate Lungs: Normal air movement Abdomen: Soft, Non Tender, Gravid Neurological: Deep Tendon Reflexes 2+/4 and Symmetrical, Neuro grossly intact. Negative for: Clonus CORONER TECHNICIAN: Normal external genitalia. Negative for: Vulvar lesions Estimated gestational size: Appropriate for gestational size Presentation: Cephalic Assessment/Plan All Active Problems (Last Reviewed 01/02/18 @ 11:23 by Roseline Perez) Elevated blood pressure affecting in third trimester, antepartum (Acute) SROM (spontaneous rupture of membranes) (Acute) (Acute) History of delivery, currently (Acute) Supervision of normal (Acute) This is a 37 year-old, at 37 weeks gestational age presents IAL srom clear fluid plan Pit now for minimal cervical change in several hours iupc placed epi being placed gbs positive start pcn
[2018-01-03] MEDS: fentaNYL-bupivacaine (epidural) 100 ML BAG EPIDURAL (21:18)
[2018-01-04] MEDS: Oxytocin 30 units/NS 500 ml 30 UNITS/500 ML IV.SOLN 334 UNITS IV (00:57)
--- NOTE | 2018-01-04 01:03 | PCM.OB.VAG ---
- Problem List (1) SROM (spontaneous rupture of membranes) Status: Acute (2) Status: Acute Qualifiers: Comment: genetic, carrier, and ntd screening declined. anatomy us normal. (3) History of delivery, currently Status: Acute Comment: h/o ltcs then 4 successful VBACs, plan this delivery (4) Supervision of normal Status: Acute Qualifiers: Comment: PRR 01/22/18 girl PC Mariano Vidal Cole, Sawyer, Rafe Jair Vaginal Delivery Maternal Presentation: Active Labor, Spontaneous Rupture of Membranes 37-year-old at 37 weeks 2 days presents with spontaneous rupture of membranes in active labor. Amniotic Membrane Rupture Type: Spontaneous at home Amniotic Fluid Description: Clear Final [place]: 01/22/18 Gestational age: 37 Weeks and 3 Days Date of Procedure: 01/04/18 Pre-Operative Diagnosis: In active labor Post-Operative Diagnosis: Same Surgery/ Procedure Performed: Spontaneous Vaginal Delivery Type of Anesthesia: Epidural Description of Procedure: Patient began pushing and delivered the head in the THAO presentation. The head was delivered atraumatically. The anterior and posterior shoulders delivered without complication followed by the rest of the and the was placed on the maternal abdomen. Delayed cord clamping was employed for approximately 60 seconds. Cord was clamped and cut and gentle traction was applied to the cord and the placenta delivered spontaneously immediately following it was noted to be intact with three-vessel cord. The perineum and vagina were inspected and noted to have no laceration. EBL was 200 cc. Patient and tolerated delivery well. Presentation: THAO Placental Delivery Description: Spontaneous Placenta Disposition: [facility] Cord Vessel Description: 3 Vessels Cord Entanglement: None Estimated Blood Loss: 200 A gender: Female Episiotomy Description: None Laceration: None Medications given after delivery: IV Pitocin Complications: None
--- NOTE | 2018-01-04 01:06 | PLAC_PTH ---
PATIENT: JUSTYN BAILEY LOC: WP U#:[id number] AGE/SX: 37/F ROOM: WP004 RE01/03/[address]: Dr. Evelin Hart MD : 1980 BED: 1 DIS: 01/05/2018 SPEC #: [id number] RECD: 01/04/18 05:12 STATUS: ESME ALEXSANDRA #: [id number] JACKELINE: 01/04/18 01:[address]: Evelin Hart DEPT: SURGICAL PATHOLOGY RECD BY: Julian Chou ENTERED: 01/04/18 08:04 SP TYPE: PLACENTA OTHR DR: No Primary Care Phys Tissues: Placenta, NOS Procedures: Surgery Specimen Level V HEADER OPERATION: Vaginal delivery PRE-OP DIAGNOSIS: Abnormal placental appearance TISSUE SUBMITTED: Placenta MICROSCOPIC DIAGNOSIS Gill placenta (447 gm): Umbilical cord - trivascular with no inflammation. Placental membranes - no significant pathologic change. Placental disc - organizing intraparenchymal hemorrhage, Simone change and intravillous congestion. Mildly increased intraparenchymal and fibrin plaques and focal acute deciduitis. AM:maribell 01/08/18 MICROSCOPIC DESCRIPTION Slides are reviewed. GROSS DESCRIPTION SPECIMEN: PLACENTA / CLINICAL INFORMATION: A. Weight: B. Gestational Age: C. Sex: PLACENTAL WEIGHT (POST FIXATION): 447 gm PLACENTAL DIMENSIONS: 17 x 16 x 3 cm PLACENTAL SHAPE: Usual ovoid PLACENTAL WEIGHT FOR GESTATIONAL AGE: Within 10-99th percentile MEMBRANES - Present A. Insertion: Marginal B. Site of rupture from edge: At edge of placental disc C. Color of membrane: Quiroz-sims D. Abnormalities: None UMBILICAL CORD - Present A. Color: Quiroz-sims B. Insertion: Eccentric C. Length: 32 cm D. Diameter: 1.6 cm E. Number of vessels: Three F. Abnormalities: None PLACENTAL DISC - Present A. Color of surface: Quiroz-sims B. surface abnormalities: None C. Maternal cotyledons: Intact with minimal tears D. Attached retro placental clot: No clot E. Cut surface: Dark red and spongy F. Lesions: Serial sections reveal a reddish-quiroz lesion measuring 1.5 cm in greatest dimension. G. Separate clot: Absent SECTIONS SUBMITTED: 1. Membrane roll and umbilical cord ( end notched) 2. Placental disc, and maternal surfaces, lesion 3. Placental disc, and maternal surfaces 4. Placental disc, and maternal surfaces AM:maribell 01/07/18 TC:2 CPT: 64476
[2018-01-04] MEDS: Oxytocin 30 units/NS 500 ml 30 UNITS/500 ML IV.SOLN 167 UNITS IV (01:27)
[2018-01-04] MEDS: 0.9% Saline Lock 10 ML Syringe IV (02:43)
[2018-01-04] MEDS: Acetaminophen 500 MG Tablet 1000 MG PO ×2 (07:07→18:23)
[2018-01-04 08:10] VITALS: BP 108/60; PULSE 97; RESP 18; TEMP 36.9; O2SAT 98
[2018-01-04] MEDS: Sertraline 50 MG Tablet PO (10:31)
[2018-01-04] MEDS: Tolterodine Tartrate 2 MG CAP.SA PO (10:31)
[2018-01-04] MEDS: Senna/Docusate Sodium 1 Tablet PO (10:31)
[2018-01-04 12:00] VITALS: BP 138/91; PULSE 92; RESP 16; TEMP 36.4; O2SAT 96
--- NOTE | 2018-01-04 15:19 | CASEMGMT ---
Social Work Assessment Referral Date: 01/04/18 Date of Assessment: 01/04/18 Reason for Consult: Hx of anxiety and depression. Information obtained from: Medical record and MOB. Living Arrangements: MOB reports to live with BINTA and 5 male children. They live in a privately owned home. MOB denies any concern of abuse or neglect within the home. Claims to have all necessary supplies for and is prepared to return home. Financial: FOB works FT, JULIANA does not. She is the primary caregiver to the children. Reports financial stability and denies concerns otherwise. Education: MOB reports to have an associates degree. Able to read and write. Denies any comprehension concerns. Transportation: Claims to have access to transportation with a 12 passenger van. No concern with transport needs. Supports: MOB identifies spouse, MIL (6 minutes away), Best Friend (1 mile away), and her mother as primary supports. All live locally or are a phone call away. Pt feels that she has adequate supports among the four listed as well as neighbors and family. Social/Family Stressors: Denies any family stressors. Mental Health: Hx of anxiety and depression. Had two suicidal attempts back in her adolescent and sought counseling following these. Now is on Zoloft and feels that symptoms are well managed. Denies any hx of PPD and reviewed during assessment. Substance Abuse: Denies and hx of substance use. ASSESSMENT: MOB is holding, gazing and during assessment. MOB is appropriate and presents with pleasant affect as evidenced by smiling and willingness to participate in assessment. MOB reports this is 6th infant, 1st female. States to have adequate supports locally. Denies concerns with returning home. All necessary supplies have been obtained for home going. Infants petroleum inspector will be Dr. Anna. Transportation to appointments is confirmed. Educated to PPD and provided with educational information to return home with. No further needs identified at this time, and pt made aware that SW is available if needs arise prior to discharge. PLAN: Home with support of family. SANDHYA Juan, CAMI
[2018-01-04 16:00] VITALS: BP 143/97; PULSE 96; RESP 20; TEMP 36.2; O2SAT 97
[2018-01-04 19:50] VITALS: BP 125/85; PULSE 85; RESP 16; TEMP 36.7; O2SAT 98
[2018-01-05 00:15] VITALS: BP 115/74; PULSE 82; RESP 16; TEMP 36.8; O2SAT 97
--- NOTE | 2018-01-05 00:45 | DCINST_ITS ---
Discharge Diet: No Restrictions Discharge Activity: Return to Normal Activity, May not drive while taking narcotic pain medications., May Shower May resume sexual activity in: 4-6 weeks Call your doctor if your incision/area has: Continuous Slow Oozing, Sudden Increased Bleeding, Increased Pain/ Swelling, Increased Redness, Foul Smelling Discharge Additional Instructions: If you experience any of the following, contact your healthcare provider. * Bleeding that soaks a pad every hour for 2 hours * Fever 100.4 or higher * Unrelieved incision or abdominal pain * Swelling, redness, discharge or bleeding from your incision or episiotomy site * Your incision begins to separate * Problems urinating (including inability to urinate or burning while urinating). * Visual changes * Severe headache * Flu-like symptoms * Pain or redness in one of both of your breasts * Pain, warmth, tenderness or swelling in your legs, especially the calf area * Frequent nausea and vomiting * Symptoms of depression or anxiety If you experience any of the following, call 911 or go to the nearest Emergency Room. * Chest pain * Problems breathing * Seizure activity * Partial or complete paralysis of a body part, slurred speech, weakness or drooping of the face, or a sudden inability to walk or hold your balance Allergies/Adverse Reactions: Allergies Iodinated Contrast- Oral and IV Dye [Iodinated Contrast Media - IV Dye] Allergy (Verified 01/02/18 11:22) Unknown naproxen sodium [From Aleve] Allergy (Verified 01/02/18 11:22) Unknown unknown reaction to Aleve Medications to take at Discharge Oxybutynin Chloride [Ditropan Xl] 10 mg PO DAILY 01/19/13 blood pressure monitor kit See Dose Instructions .ROUTE .MEDSUPPLY #1 ea 12/24/17 Sertraline HCl [Zoloft] 50 mg PO QDAY 01/03/18 Please Follow Up With: Evelin Hart MD - [phone] When: Call to make an appointment with your doctor in 6 weeks. If you had elevated Blood pressure or 4th degree laceration you will need to be seen in 2 weeks. Primary Care Physician: Care Physician,No Primary [Primary Care Provider] - Test Results: Test results from this visit will be discussed in further detail at your follow- up appointment, if applicable.
[2018-01-05 02:20] VITALS: BP 104/55; PULSE 78; RESP 16; TEMP 36.6; O2SAT 97
[2018-01-05] MEDS: Acetaminophen 500 MG Tablet 1000 MG PO (07:47)
[2018-01-05] MEDS: Senna/Docusate Sodium 1 Tablet PO (08:52)
[2018-01-05 10:00] VITALS: BP 120/70; PULSE 75; RESP 20; TEMP 36.6; O2SAT 95
[2018-01-05 14:18] VITALS: BP 129/76; PULSE 82; RESP 16; TEMP 36.6; O2SAT 96
--- NOTE | 2018-01-05 14:21 | PCM.PN.OB ---
Patient Problems: Active and Suspected Problems (Last Reviewed 01/02/18 @ 11:23 by Roseline Perez) SROM (spontaneous rupture of membranes) (Acute) Subjective: doing well no complaints - Physical Exam General: Alert, Oriented x3 Vital Signs Temp Pulse Resp BP Pulse Ox 98 F 75 20 H 120/70 95 01/05/18 10:00 01/05/18 10:00 01/05/18 10:00 01/05/18 10:00 01/05/18 10:00 Oxygen Delivery Method Room Air Weight: 221 lb 12.56 oz Body Mass Index (BMI) 38.0 Intake and Output for Last 24 Hours 01/03/18 01/04/18 01/05/18 23:59 23:59 23:59 Intake Total 334 / 334 Output Total 400 / 400 425 / 425 Balance -400 / -400 -91 / -91 Medical Necessity - Tobacco Use Smoking Status: Former smoker Assessment/Plan All Active Problems (Last Reviewed 01/02/18 @ 11:23 by Roseline Perez) Elevated blood pressure affecting in third trimester, antepartum (Acute) SROM (spontaneous rupture of membranes) (Acute) (Acute) History of delivery, currently (Acute) Supervision of normal (Acute) s/p routine care
[2018-01-08 15:46] LABS: Pathology Specimen OB SEE PATHOLOGY REPORT
--- OUTSIDE RECORDS SUMMARY | 2018-02-28 22:01 | XMS RPT_ITS ---
:1980 Author Organization OHIP Support Name Relationship Address Phone SANDEE WEST Unavailable [address] + [place] [address] FAUSTINO ANTUNEZ Unavailable Unavailable + UE Unavailable Unavailable Unavailable SANDEE WEST Unavailable [address] + [place] [address] FAUSTINO ANTUNEZ Unavailable Unavailable + UE Unavailable Unavailable Unavailable SANDEE WEST Unavailable [address] + [place] [address] FAUSTINO ANTUNEZ Unavailable Unavailable + UE Unavailable Unavailable Unavailable SANDEE WEST Unavailable [address] + [place] [address] FAUSTINO ANTUNEZ Unavailable Unavailable + UE Unavailable Unavailable Unavailable SANDEE WEST Unavailable [address] + [place] [address] FAUSTINO ANTUNEZ Unavailable . + ., [place] . UE Unavailable Unavailable Unavailable SANDEE WEST Unavailable [address] + [place] [address] FAUSTINO ANTUNEZ Unavailable . + ., [place] . UE Unavailable Unavailable Unavailable SANDEE WEST Unavailable [address] + [place] [address] FAUSTINO ANTUNEZ Unavailable Unavailable + UE Unavailable Unavailable Unavailable SANDEE WEST Unavailable [address] + [place] [address] FAUSTINO ANTUNEZ Unavailable Unavailable + UE Unavailable Unavailable Unavailable SANDEE WEST Unavailable [address] + [place] [address] FAUSTINO ANTUNEZ Unavailable . + [place] [address] UE Unavailable Unavailable Unavailable LEO, SANDEE Unavailable [address] + [place] [address] FAUSTINO ANTUNEZ Unavailable Unavailable + UE Unavailable Unavailable Unavailable LEO, SANDEE Unavailable [address] + [place] [address] NAYMFAUSTINO BHAT Unavailable . + [place] [address] UE Unavailable Unavailable Unavailable LEO, SANDEE Unavailable [address] + [place] [address] FAUSTINO ANTUNEZ Unavailable . + [place] [address] UE Unavailable Unavailable Unavailable LEO, SANDEE Unavailable [address] + [place] [address] FAUSTINO ANTUNEZ Unavailable Unavailable + [place] [address] UE Unavailable Unavailable Unavailable LEO, SANDEE Unavailable [address] + [place] [address] FAUSTINO ANTUNEZ Unavailable . + [place] [address] UE Unavailable Unavailable Unavailable LEO, SANDEE Unavailable [address] + [place] [address] FAUSTINO ANTUNEZ Unavailable . + [place] [address] UE Unavailable Unavailable Unavailable LEO, SANDEE Unavailable [address] + [place] [address] FAUSTINO ANTUNEZ Unavailable . + [place] [address] UE Unavailable Unavailable Unavailable LEO, SANDEE Unavailable [address] + [place] [address] NAFAUSTINO FRY Unavailable . + [place] [address] UE Unavailable Unavailable Unavailable LEO, SANDEE Unavailable [address] + [place] [address] FAUSTINO ANTUNEZ Unavailable . + [place] [address] UE Unavailable Unavailable Unavailable LEO, SANDEE Unavailable [address] + [place] [address] FAUSTINO ANTUNEZ Unavailable . + [place] [address] UE Unavailable Unavailable Unavailable LEO SANDEE Unavailable [address] + [place] [address] FAUSTINO ANTUNEZ Unavailable Unavailable + [place] [address] UE Unavailable Unavailable Unavailable LEO, SANDEE Unavailable [address] + [place] [address] FAUSTINO ANTUNEZ Unavailable . + [place] [address] UE Unavailable Unavailable Unavailable LEO, SANDEE Unavailable [address] + [place] [address] FAUSTINO ANTUNEZ Unavailable Unavailable + [place] [address] UE Unavailable Unavailable Unavailable LEO, SANDEE Unavailable [address] + [place] [address] FAUSTINO ANTUNEZ Unavailable . + [place] [address] UE Unavailable Unavailable Unavailable LEO, SANDEE Unavailable [address] + [place] [address] UE Unavailable Unavailable Unavailable LEO, SANDEE Unavailable [address] + [place] [address] UE Unavailable Unavailable Unavailable Care Team Providers Name Role Phone KAITLYN FERRARO (AUTOMOBILE CLUB INFORMATION CLERK) Attending Unavailable ELISHA [place] (OD) Attending Unavailable CHARBEL CABRERA Referring Unavailable Marcanthony, Evelin Attending Unavailable Marcanthony, Evelin Attending Unavailable Marcanthony, Evelin Referring Unavailable Marcanthony, Evelin Attending Unavailable Marcanthony, Evelin Attending Unavailable Marcanthony, Evelin Referring Unavailable Primay Care Physicia, No Primary Care Unavailable Watchung, Mary Attending Unavailable Primay Care Physicia, No Referring Unavailable Nuria, Mary Attending Unavailable Watchung, Mary Referring Unavailable Primay Care Physicia, No Primary Care Unavailable Watchung, Mary Attending Unavailable Watchung, Mary Referring Unavailable Primay Care Physicia, No Primary Care Unavailable Marcanthony, Evelin Attending Unavailable Primay Care Physicia, No Referring Unavailable Primay Care Physicia, No Primary Care Unavailable Marcanthony, Evelin Attending Unavailable Primay Care Physicia, No Referring Unavailable Marcanthony, Evelin Attending Unavailable Primay Care Physicia, No Primary Care Unavailable Marcanthony, Evelin Attending Unavailable Primay Care Physicia, No Referring Unavailable Watchung, Mary Attending Unavailable Primay Care Physicia, No Referring Unavailable Primay Care Physicia, No Primary Care Unavailable Nuria, Mary Consulting Unavailable Marcanthony, Evelin Attending Unavailable Marcanthony, Evelin Referring Unavailable Watchung, Mary Attending Unavailable Primay Care Physicia, No Referring Unavailable Watchung, Mary Attending Unavailable Primay Care Physicia, No Referring Unavailable Marcanthony, Evelin Attending Unavailable Marcanthony, Evelin Referring Unavailable Primay Care Physicia, No Primary Care Unavailable Watchung, Mary Consulting Unavailable Marcanthony, Evelin Consulting Unavailable Watchung, Mary Attending Unavailable Primay Care Physicia, No Referring Unavailable Nuria, Mary Attending Unavailable Nuria, Mary Referring Unavailable Primay Care Physicia, No Primary Care Unavailable Watchung, Mary Attending Unavailable Nuria, Mary Referring Unavailable [...] - Marcanthony, Active [place] Encounter for Evelin [facility] supervision of [facility] normal , Repository unspecified, unspecified trimester / Z34.90(ICD-10) 01/02/2018 Unknown O34.219 - Marcanthony, Active [place] Maternal care for [facility] unspecified type Hospital scar from Repository previous delivery / O34.219(ICD-10) 01/02/2018 Unknown Z34.83 - Marcanthony, Active [place] Encounter for [facility] of [facility] other normal Repository , third trimester / Z34.83(ICD-10) 01/02/2018 Unknown Z3A.35 - 35 weeks Marcanthony, Active [place] gestation of [facility] / Hospital Z3A.35(ICD-10) Repository 01/02/2018 Unknown O16.3 - Marcanthony, Active [place] Unspecified [facility] Hospital hypertension, Repository third trimester / O16.3(ICD-10) 11/16/2017 Unknown Z3A.30 - 30 weeks Marcanthony, Active [place] gestation of [facility] / Hospital Z3A.30(ICD-10) Repository 09/28/2017 Unknown Z34.82 - Marcanthony, Active [place] Encounter for [facility] of [facility] other normal Repository , second trimester / Z34.82(ICD-10) 09/28/2017 Unknown Z3A.23 - 23 weeks Marcanthony, Active [place] gestation of [facility] / Hospital Z3A.23(ICD-10) Repository 07/24/2017 Unknown Z3A.14 - 14 weeks Marcanthony, Active [place] gestation of [facility] / Hospital Z3A.14(ICD-10) Repository 06/27/2017 Unknown Z34.81 - Marcanthony, Active [place] Encounter for [facility] of [facility] other normal Repository , first trimester / Z34.81(ICD-10) 05/08/2017 Active Unknown / BUZZ, KAITLYN Active [facility] UNK(Unknown) (AUTOMOBILE CLUB INFORMATION CLERK) Main [place] Repository PROCEDURES PROCEDURES No Procedure Records FoundRESULTS RESULTS DISCHARGE INSTRUCTION Observed: 01/05/2018 Status: F Source: [place] 12:45 AM [facility] Medical Records Department [address] [place] [address] Instructions for Home/Discharge Instructions 01/05/18 0045 MR#: [id number] Acct: [id number] Name: JUSTYN WEST Rep #: [id number] : 1980 37 From: Evelin Hart MD [...] Follow Up With: Evelin Hart MD - [phone] When: Call to make an appointment with [...] 01/04/2018 Status: F Source: [place] 1:06 AM [facility] REPOSITORY Patient: JUSTYN WEST : 1980 (37/F) Acct Num: [id number] Phys: Evelin Hart MD Unit Num: [id number] Loc: WP [id number] Specimen: [id number] Received: 01/04/1812 Spec Type: PLACENTA TISSUES 1 [...] and maternal surfaces AM:maribell 01/07/18 TC:2 CPT: 31710 HEADER OPERATION: Vaginal delivery PRE-OP DIAGNOSIS: Abnormal [...] on file> Performed By: #### PPLAC #### [facility] [address] [place], [address] OPERATIVE REPORT Observed: 01/04/2018 Status: F Source: [place] 1:05 [facility] REPOSITORY [facility] Medical Records Department [address] [place] [address] Operative Report 01/04/18 0103 MR#: [id number] Acct: [id number] Name: JUSTYN WEST Rep #: [id number] : 1980 37 From: Evelin Hart MD PCP: Care Physician, No Primary Status: ADM IN Location: [id number] - Problem List (1) SROM (spontaneous rupture [...] SPECIMEN OB Collected: 01/04/2018 Status: F Source: [place] 12:51 AM [facility] REPOSITORY Order Comment: Reason for Laboratory Test Placenta for lab studies Send Specimen For (Specify): Studies @ [facility] Lab:Routine Time of Procedure: 105 Date of Procedure: 01/04/18 Reason specimen being sent to pathology (Hx/complications): abnormal placental appearance Type of specimen: Placenta Type of procedure performed: Other TYPE CODE TESTS RESULT OUT OF RANGE REFERENCE UNITS LAB L350.1800 SEE Normal PATH. PATHOLOGY Spec. OB REPORT Result Comment: Specimen submitted to Anatomical Pathology Department for testing. Performed By: #### L350.1800 #### [facility] [address] [facility] [place], [address] HISTORY AND PHYSICAL Observed: 01/03/2018 Status: F Source: [place] EXAM 9:19 PM [facility] REPOSITORY [facility] Medical Records Department [address] [place] [address] History and Physical 01/03/182112 MR#: [id number] Acct: [id number] Name: JUSTYN WEST Rep #: [id number] : 1980 37 From: Evelin Hart MD PCP: Care Physician, No Primary Status: ADM IN Y Location: [place] [id number] - Problem List (1) SROM (spontaneous rupture [...] Symmetrical, Neuro grossly intact. Negative for: Clonus CARPENTER/LABOR: Normal external genitalia. Negative for: Vulvar lesions [...] F Source: [place] NO DIFF 4:45 PM [facility] REPOSITORY TYPE CODE TESTS RESULT OUT OF [...] MPV 10.6 Performed By: #### L100.0500 #### [facility] [address] [place], [place], [id number] TYPE AND SCREEN Collected: 01/03/2018 Status: F Source: [place] 4:45 PM [facility] REPOSITORY Order Comment: Reason for Type AND Screen/Red Cells: ROUTINE TYPE CODE TESTS RESULT OUT OF RANGE REFERENCE UNITS LAB B10.0800 O Normal BLOOD TYPE GEL POSITIVE LAB B100.4000 Normal Antibody NEGATIVE Screen Performed By: #### B101.7450 #### [facility] [address] [place], [address] GROUP B STREP DNA Collected: 01/03/2018 Status: F Source: [place] BY PCR 4:45 PM [facility] REPOSITORY TYPE CODE TESTS RESULT OUT OF REFERENCE UNITS RANGE LAB L8200.0100 Negative High GBS TEST POSITIVE RESULT Result Comment: Penicillin is the recommended antibiotic for the treatment of Group B Streptococcal disease. In case of penicillin allergy, susceptibility testing for Clindamycin and Erythromycin is suggested by request. Performed By: #### L8200.0000 #### [facility] [place], [place], [id number] (ROM) RUPTURE OF Collected: 01/03/2018 Status: F Source: [place] [facility] 3:40 PM [facility] REPOSITORY TYPE CODE TESTS RESULT OUT OF REFERENCE UNITS RANGE LAB L205.1310 Negative High ROM POSITIVE Result Comment: Amniotic fluid present indicates rupture of Membranes. RESULTS CALLED TO MONIQUE 01/03/18 Joy Still. REPORT READ BACK BY SAME . Performed By: #### L205.1000 #### [facility] [address] [place], [place], [address] LOAN OPERATIONS SPECIALIST OFFICE VISIT Observed: 01/02/2018 Status: F Source: [place] REPORT 11:52 AM [facility] REPOSITORY [facility] [place] [address] [place], [place] [address] OFFICE VISIT Date of Service: 01/02/18 MR#: [id number] Acct: [id number] Name: JUSTYN WEST Rep #: [id number] : 1980 Provider: Evelin Hart MD Age/Sex: 37/F Location: [facility] Status: Signed Intake Vital Signs01/02/18 Body Mass Index (BMI) 37.4 01/02/18 Height 5 ft 4 in 01/02/18 Weight: 222 lb 4 oz 01/02/18 Body Mass Index (BMI) 38.1 01/02/18 Blood Pressure 110/84 H Intake Visit Reasons: 37 WEEK OB Chief Complaint: est ob Freelance Photographer Required: No Is patient in pain?: No [...] applicable) CC: Observed: 01/02/2018 Status: F Source: [place] CULTURE, GROUP B 12:00 AM [facility] STREPTOCOCCUS REPOSITORY Results called on 01/04/18-945 by REINA to NURSE LINE [phone]. Comments: VAGINAL RECTAL CAITLYN Culture ORGANISM 1: Streptococcus agalactiae (B) Amount Growth 3+ Streptococcus agalactiae (B): REACTION Ampicillin $ <=0.25 S Clindamycin $$ <=0.25 S Inducable Clindamycin Resistan - Linezolid $$$$ <=2 S Vancomycin $ 0.5 S (NF) indicates non-formulary drug at [facility]. Approval by Infectious Disease Specialist required before non-formulary drugs may be ordered and/or dispensed. * CLSI guidelines does not recommend testing of cephalosporins. This interpretation is deduced from Beta-lactam/penicillin results. Performed By: #### M100.1800 #### [facility] [address] [place], [address] OB LIMITED WITH Observed: 12/24/2017 Status: F Source: [place] BIOMETRICS 3:46 PM [facility] REPOSITORY [facility] Imaging Services [address] [place] [address] OB Limited With Biometrics MR#: [id number] Acct: [id number] Name: JUSTYN WEST Ori Rep #: [id number] : 1980 F 37 From: Preston Carpio DO PCP: Care Physician, No Primary Status: REG CLI Study: OB Limited With Biometrics Date of Exam: 12/24/17 Exam# [id number] Ordering Dr: Mary Quiñones STUDY: SECOND AND [...] Preston Carpio DO at 17:07 EST Tel [phone], Service support , CC: PAZ Quiñones; No Primary Care Physician Electrodynamicist: Signed PROTEIN+CREATININE Collected: Status: F Source: [place] RATIO,URINE 12/24/2017 11:59 AM [facility] REPOSITORY TYPE CODE TESTS RESULT OUT OF RANGE REFERENCE UNITS LAB L501.1200 NO RANGE EST. mg/dL Normal UR CREAT 112.00 LAB L501.1930 <11.9 mg/dL Normal 8.9 PROTEIN,UR.R AN. LAB L501.1940 0-200 mg/g CRE Normal PROT:CRE 79 RATIO Performed By: #### L501.0900 #### [facility] [address] [place], [address] LOAN OPERATIONS SPECIALIST OFFICE VISIT Observed: 12/24/2017 Status: F Source: [place] REPORT 11:51 AM [facility] REPOSITORY [facility] [address] [place] [address] OFFICE VISIT Date of Service: 12/24/17 MR#: [id number] Acct: [id number] Name: JUSTYN WEST Rep #: [id number] : 1980 Provider: PAZ Quiñones Age/Sex: 37/F Location: [facility] Status: Signed Intake Vital Signs12/24/17 Body Mass Index (BMI) 37.4 12/24/17 Height 5 ft 4 in 12/24/17 Weight: 218 lb 6 oz 12/24/17 Body Mass Index (BMI) 37.5 12/24/17 Blood Pressure 142/96 H Intake Visit Reasons: OB - BP CHECK, OK PER Freelance Photographer Required: No Is patient in pain?: No [...] 12/24/2017 Status: F Source: [place] 11:50 AM [facility] REPOSITORY TYPE CODE TESTS RESULT OUT OF [...] Lymph 1.83 Performed By: #### L100.0100 #### [facility] [place], [place], [address] COMPREHENSIVE METABOLIC Collected: 12/24/2017 Status: F Source: [place] GARZA 11:50 AM [facility] REPOSITORY Order Comment: Serial Specimen #1, #2 [...] Performed By: #### L500.4050, L501.1400, L504.2610 #### [facility] [address] [place], [place], [address] URIC ACID Collected: 12/24/2017 Status: F Source: [place] 11:50 AM [facility] REPOSITORY Order Comment: Serial Specimen #1, #2 or #3? 1 TYPE CODE TESTS RESULT OUT OF RANGE REFERENCE UNITS LAB L501.1400 2.6-6.0 mg/dL Normal URIC 4.3 Result Comment: The drugs N-Acetylcysteine and Metamizole may falsely depress this assay. Performed By: #### L500.4050, L501.1400, L504.2610 #### [facility] [address] [place], [address] LDH Collected: 12/24/2017 Status: F Source: [place] 11:50 AM [facility] REPOSITORY Order Comment: Serial Specimen #1, #2 or #3? 1 TYPE CODE TESTS RESULT OUT OF RANGE REFERENCE UNITS LAB L504.2610 84-246 U/L Normal LDH 147 Performed By: #### L500.4050, L501.1400, L504.2610 #### [facility] [address] [place], [address] LOAN OPERATIONS SPECIALIST OFFICE VISIT Observed: 12/21/2017 Status: F Source: [place] REPORT 2:15 PM [facility] REPOSITORY [facility] [address] [place] [address] OFFICE VISIT Date of Service: 12/21/17 MR#: [id number] Acct: [id number] Name: JUSTYN WEST Ori Rep #: [id number] : 1980 Provider: PAZ Quiñones Age/Sex: 37/F Location: [facility] Status: Signed Intake Vital Signs12/21/17 Height 5 [...] CURTIS Cosigner Signature: Date (if applicable) CC: LOAN OPERATIONS SPECIALIST OFFICE VISIT Observed: 12/19/2017 Status: F Source: [place] REPORT 11:06 AM [facility] [address] [place] [address] OFFICE VISIT Date of Service: 12/19/17 MR#: [id number] Acct: [id number] Name: JUSTYN WEST Ori Rep #: [id number] : 1980 Provider: PAZ Quiñones Age/Sex: 37/F Location: [facility] Status: Signed Intake Vital Signs12/19/17 Height 5 ft 4.5 in 12/19/17 Weight: 219 lb 2 oz 12/19/17 Body Mass Index (BMI) 37.0 12/19/17 Blood Pressure 130/90 H H Intake Visit Reasons: OB - HIGH BP Chief Complaint: est ob, HTN Freelance Photographer Required: No Is patient in pain?: No [...] F Source: [place] RATIO,URINE 12/19/2017 10:12 AM [facility] REPOSITORY TYPE CODE TESTS RESULT OUT OF RANGE REFERENCE UNITS LAB L501.1200 NO RANGE EST. mg/dL 64.70 Normal UR CREAT LAB L501.1930 <11.9 mg/dL < 6.0 Normal PROTEIN,UR. RAN. LAB L501.1940 0-200 mg/g CRE Test Normal not performed PROT:CRE RATIO Performed By: #### L501.0900 #### [facility] [address] [place], [place], [address] CBC W/DIFF, AUTOMATED Collected: 12/19/2017 Status: F Source: [place] 10:04 AM [facility] REPOSITORY TYPE CODE TESTS RESULT OUT OF [...] Lymph 1.88 Performed By: #### L100.0100 #### [facility] [address] [place], [address] COMPREHENSIVE METABOLIC Collected: 12/19/2017 Status: F Source: [place] GARZA 10:04 AM [facility] REPOSITORY Order Comment: Serial Specimen #1, #2 [...] Performed By: #### L500.4050, L501.1400, L504.2610 #### [facility] [address] [place], [address] URIC ACID Collected: 12/19/2017 Status: F Source: [place] 10:04 AM [facility] REPOSITORY Order Comment: Serial Specimen #1, #2 or #3? 1 TYPE CODE TESTS RESULT OUT OF RANGE REFERENCE UNITS LAB L501.1400 2.6-6.0 mg/dL Normal URIC 4.2 Result Comment: The drugs N-Acetylcysteine and Metamizole may falsely depress this assay. Performed By: #### L500.4050, L501.1400, L504.2610 #### [facility] [address] [place], [address] LDH Collected: 12/19/2017 Status: F Source: [place] 10:04 AM [facility] REPOSITORY Order Comment: Serial Specimen #1, #2 or #3? 1 TYPE CODE TESTS RESULT OUT OF RANGE REFERENCE UNITS LAB L504.2610 84-246 U/L Normal LDH 161 Performed By: #### L500.4050, L501.1400, L504.2610 #### [facility] [address] [place], [address] LOAN OPERATIONS SPECIALIST OFFICE VISIT Observed: 12/03/2017 Status: F Source: [place] REPORT 4:04 PM [facility] REPOSITORY [facility] [address] [place] [address] OFFICE VISIT Date of Service: 12/03/17 MR#: [id number] Acct: [id number] Name: LEOYUE GOMEZMary Rehman Rep #: [id number] : 1980 Provider: PAZ Quiñones Age/Sex: 37/F Location: [facility] Status: Signed Intake Vital Signs12/03/17 Height 5 ft 4.5 in 12/03/17 Weight: 219 lb 2 oz 12/03/17 Body Mass Index (BMI) 37.0 12/03/17 Blood Pressure 118/84 H Intake Visit Reasons: 32 weeks Freelance Photographer Required: No Is patient in pain?: No [...] CURTIS Cosigner Signature: Date (if applicable) CC: LOAN OPERATIONS SPECIALIST OFFICE VISIT Observed: 11/16/2017 Status: F Source: [place] REPORT 11:03 AM [facility] [address] [place] [address]. [address] [place] [address] OFFICE VISIT Date of Service: 11/16/17 MR#: [id number] Acct: [id number] Name: JUSTYN WEST Ori Rep #: [id number] : 1980 Provider: Evelin Hart MD Age/Sex: 37/F Location: [facility] Status: Signed Intake Vital Signs11/16/17 Height 5 ft 4.5 in 11/16/17 Weight: 218 lb 11/16/17 Body Mass Index (BMI) 36.8 11/16/17 Blood Pressure 114/68 Intake Visit Reasons: 30 weeks Chief Complaint: est ob Freelance Photographer Required: No Is patient in pain?: No [...] MD Cosigner Signature: Date (if applicable) CC: LOAN OPERATIONS SPECIALIST OFFICE VISIT Observed: 11/03/2017 Status: F Source: [place] REPORT 1:00 PM [facility] [address] [place] [address] OFFICE VISIT Date of Service: 11/02/17 MR#: [id number] Acct: [id number] Name: JUSTYN WEST Rep #: [id number] : 1980 Provider: Evelin Hart MD Age/Sex: 37/F Location: [facility] Status: Signed Intake Vital Signs11/02/17 Height 5 ft 4.75 in 11/02/17 Weight: 217 lb 6 oz 11/02/17 Body Mass Index (BMI) 36.4 Intake Visit Reasons: 28 weeks Freelance Photographer Required: No Is patient in pain?: No [...] No lump. Doesn't happen often. Mary Quiñones, EMBEDDED SOFTWARE ENGINEER-C on 08/21/17 Visit Date: 07/24/17 no vb [...] 11/02/2017 Status: F Source: [place] 11:15 AM [facility] REPOSITORY TYPE CODE TESTS RESULT OUT OF [...] 2.25 Performed By: #### L100.0100, L501.0250 #### [facility] [address] [place], [address] GLUCOSE CHALLENGE GEST Collected: 11/02/2017 Status: F Source: [place] 1H 50G 11:15 AM [facility] REPOSITORY Order Comment: Comments: Draw lab at 11:14am TYPE CODE TESTS RESULT OUT OF RANGE REFERENCE UNITS LAB L501.0250 70-140 mg/dL Normal GLU GEST 96 50g 1H Performed By: #### L100.0100, L501.0250 #### [facility] [address] [place], [address] OB LIMITED WITH Observed: 09/28/2017 Status: F Source: [place] BIOMETRICS 11:19 AM [facility] REPOSITORY [facility] Imaging Services [address] [place] [address] OB Limited With Biometrics MR#: [id number] Acct: [id number] Name: JUSTYN WEST [place] Rep #: [id number] : 1980 F 37 From: Óscar Campbell MD PCP: Care Physician, No Primary Status: REG CLI Study: OB Limited With Biometrics Date of Exam: 09/28/17 Exam# [id number] Ordering Dr: Mary Quiñones STUDY: SECOND AND [...] Óscar Campbell MD at 15:42 EDT Tel [phone], Service support , CC: PAZ Quiñones; No Primary Care Physician Electrodynamicist: Signed LOAN OPERATIONS SPECIALIST OFFICE VISIT Observed: 09/28/2017 Status: F Source: [place] REPORT 10:58 AM [facility] [address] [place], [place] [address]maury. [address] [place] [address] OFFICE VISIT Date of Service: 09/28/17 MR#: [id number] Acct: [id number] Name: JUSTYN WEST Rep #: [id number] : 1980 Provider: Evelin Hart MD Age/Sex: 37/F Location: [facility] Status: Signed Intake Vital Signs09/28/17 Height 5 ft 4.75 in 09/28/17 Weight: 206 lb 6 oz 09/28/17 Body Mass Index (BMI) 34.6 09/28/17 Blood Pressure 144/81 Intake Visit Reasons: est ob 23 weeks Freelance Photographer Required: No Is patient in pain?: No [...] No lump. Doesn't happen often. Mary Quiñones, EMBEDDED SOFTWARE ENGINEER-C on 08/21/17 Visit Date: 07/24/17 no vb [...] 08/31/2017 Status: F Source: [place] 3:37 PM [facility] REPOSITORY [facility] Imaging Services [address] [place] [address] OB Anatomy Scan MR#: [id number] Acct: [id number] Name: JUSTYN WEST Rep #: [id number] : 1980 F 37 From: Ailyn Mena PCP: Care Physician, No Primary Status: REG CLI Study: OB Anatomy Scan Date of Exam: 08/31/17 Exam# [id number] Ordering Dr: Mary Quiñones EMBEDDED SOFTWARE ENGINEER-Fernandez STUDY: SECOND AND THIRD TRIMESTER OBSTETRICAL ULTRASOUND [...] CC: PAZ Quiñones; No Primary Care Physician Electrodynamicist: Signed PROGRESS Observed: 08/29/2017 Status: COMPLETED Source: [place] 10:53 AM [facility] REPOSITORY HNO ID: [id number] Author: Elisha (Brandi) Gerald Service: (none) Author Type: PAY STATION ATTENDANT Type: Progress Notes Filed: 08/29/2017 10:54 AM Note Text: ASSESSMENT/PLAN: 1. 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 Patient was instructed to call the office ([phone]) immediately upon noticing flashes of light, increase [...] about the findings, diagnosis, and treatment options. LOAN OPERATIONS SPECIALIST OFFICE VISIT Observed: 08/21/2017 Status: F Source: [place] REPORT 1:34 PM [facility] REPOSITORY [facility] [address] [place] [address] OFFICE VISIT Date of Service: 08/21/17 MR#: [id number] Acct: [id number] Name: JUSTYN WEST Rep #: [id number] : 1980 Provider: PAZ Quiñones Age/Sex: 37/F Location: [facility] Status: Signed Intake Vital Signs08/21/17 Height 5 ft 4.75 in 08/21/17 Weight: 197 lb 08/21/17 Body Mass Index (BMI) 33.0 08/21/17 Blood Pressure 130/76 Intake Visit Reasons: 18 WEEK OB Freelance Photographer Required: No Is patient in pain?: No [...] 07/24/2017 Status: F Source: [place] 12:19 PM [facility] REPOSITORY TYPE CODE TESTS RESULT OUT OF [...] Lymph 2.11 Performed By: #### L100.0100 #### [facility] [address] [place], [place], [address] TYPE AND SCREEN Collected: 07/24/2017 Status: F Source: [place] 12:19 PM [facility] REPOSITORY Order Comment: Reason for Type AND Screen/Red Cells: TYPE CODE TESTS RESULT OUT OF RANGE REFERENCE UNITS LAB B10.0800 O Normal BLOOD TYPE GEL POSITIVE LAB B100.4000 Normal Antibody NEGATIVE Screen Performed By: #### B101.7450, L509.4000, L3890.6005 #### [facility] [address] #### L3100.0390 #### [facility] (refer to report for specific site) refer to report for address and phone number RUBELLA IGG Collected: 07/24/2017 Status: F Source: [place] 12:19 PM [facility] REPOSITORY TYPE CODE TESTS RESULT OUT OF RANGE REFERENCE UNITS LAB L509.4000 IU/mL Normal Rubella IgG 70.6 Result Comment: Antibody results Interpretation of Immune Status < 5 IU/ml Presumed Non-immune 5 - < 10 IU/ml Equivocal > or = 10 IU/ml Presumed Immune Performed By: #### B101.7450, L509.4000, L3890.6005 #### [facility] [address] [place], [place] [address] #### L3100.0390 #### [facility] (refer to report for specific site) refer to report for address and phone number HIV - [facility] Collected: 07/24/2017 Status: F Source: [place] 12:19 [facility] REPOSITORY TYPE CODE TESTS RESULT OUT OF RANGE REFERENCE UNITS LAB L3890.6005 Nonreactive Normal HIV - [facility] Non-Reactive Performed By: #### B101.7450, L509.4000, L3890.6005 #### [facility] [address] [place], [place] [address] #### L3100.0390 #### [facility] (refer to report for specific site) refer to report for address and phone number HEPATITIS B SURFACE Collected: 07/24/2017 Status: F Source: [place] AG 12:19 PM [facility] REPOSITORY TYPE CODE TESTS RESULT OUT OF RANGE REFERENCE UNITS LAB L3100.0400 Negative Normal HB Negative SURF AG Result Comment: Performed at: [facility] [address] [id number] [employer] Operator: Dong Armstrong PhD, Phone: [phone] Performed By: #### B101.7450, L509.4000, L3890.6005 #### [facility] [address] [place] [address] #### L3100.0390 #### [facility] (refer to report for specific site) refer to report for address and phone number RAPID PLASMIN REAGIN Collected: 07/24/2017 Status: F Source: [place] (RPR) 12:19 PM [facility] REPOSITORY TYPE CODE TESTS RESULT OUT OF REFERENCE UNITS RANGE LAB L700.5000 NONREACTIVE NONREACTIVE Normal RPR Performed By: #### L700.5000 #### [place] [facility] [address] [place], [address] LOAN OPERATIONS SPECIALIST OFFICE VISIT Observed: 07/24/2017 Status: F Source: [place] REPORT 12:04 PM [facility] REPOSITORY [facility] 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 [address] [place], [address] Observed: 06/27/2017 Status: F Source: [place] CULTURE, URINE 5:14 PM [facility] REPOSITORY NO COLLECTION INFORMATION GIVEN Urine Culture There are no CLSI standards for interpretation of this Drug/Organism combination. ORGANISM 1: Lactobacillus species [place] Count 11,000-25,000 Performed By: #### L8200.1999, M100.0650 #### [facility] [address] [place], [address] LOAN OPERATIONS SPECIALIST OFFICE VISIT Observed: 06/27/2017 Status: F Source: [place] REPORT 4:15 PM [facility] REPOSITORY [facility] 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 Is patient in pain?: No [...] Pulmonary (e.g.,TB,Asthma), Seasonal allergies, Drug/latex allergies/reactions, Breast, Housekeeper Cleaning Cooking surgery, Anesthetic complications, History of abnormal pap, [...] appearing, comfortable, no acute distress Orientation: alert [facility] Head: normal to inspection, atraumatic, normocephalic Ears: [...] 05/08/2017 Status: COMPLETED Source: [place] 3:39 PM [facility] REPOSITORY O ID: [id number] Author: Kaitlyn Gray) [employer] Service: (none) Author Type: Nurse Practitioner Type: Progress Notes Filed: 05/08/2017 4:44 PM Note Text: Cobol Programmer offered: Patient declines. Justyn West is a [...] low cervical - COLONOSCOP W/ OR W/O [facility] SPEC Colonoscopy - DANDC, DIAG AND/OR THERAPEUTIC [...] external genitalia normal, normal Bartholin's glands, urethra, [place]'s glands, no vulvar lesions, no cervical lesions, [...] to not have anymore children Kaitlyn Ferraro APRN.AUTOMOBILE CLUB INFORMATION CLERK CNOV Observed: 05/08/2017 Status: COMPLETED Source: [place] 3:30 PM [facility] [place] REPOSITORY Office Visit (WOOB) JUSTYN WEST ([id number]) 1980 F Date Time Provider Department 05/08/17 3:30 PM KAITLYN FERRARO (BUBBA) WOOB During your visit today, we recorded the following information about you: Blood pressure Weight Height Last Period 120/74 83.9 kg 1.64 m 04/27/17 Kaitlyn Ferraro APRN.CNP 05/08/2017 4:44 PM Signed Cobol Programmer offered: Patient declines. Justyn West is a [...] low cervical - COLONOSCOP W/ OR W/O [facility] SPEC Colonoscopy - DANDamp;C, DIAG AND/OR THERAPEUTIC [...] external genitalia normal, normal Bartholin's glands, urethra, [place]'s glands, no vulvar lesions, no cervical lesions, [...] to not have anymore children Kaitlyn Ferraro APRN.AUTOMOBILE CLUB INFORMATION CLERK Referring Provider: SELF [200] Allergies As of [...] 05/08/17 OBSOLETE Observed: 03/05/2017 Status: COMPLETED Source: [place] 12:00 AM [facility] REPOSITORY Refill (WOOB) JUSTYN WEST ([id number]) 1980 F Date Time Provider Department 03/05/17 [...] 03/02/2006 Date Reviewed: 08/25/2016 Reviewed by: Eagle (Stud Setter) [facility] - Fully Assessed Reason for Visit: Refill [...] SEVERITY SOURCE 01/02/2018 Drug naproxen Unknown Unknown [place] Allergy/416 sodium/[id number] [facility] 243179([facility] 1(RXNORM) [facility] ED CT) Repository 01/02/2018 Drug Iodinated Unknown Unknown [place] Allergy/416 Contrast- Oral [facility] 301910([facility] and [facility] ED CT) Dye/[id number](R Repository XNORM) 02/06/2015 DRUG IBUPROFEN INTOLERANCE [facility] INGREDI/[address] [place] [address]15(SNOM Repository ED CT) 03/02/2006 [facility] [place] [address]428(SNOM Repository ED CT) 03/02/2006 DRUG CONTRAST DYE [facility]/[address] [place] 410647(SNOM Repository ED CT) ENCOUNTERS ENCOUNTERS ADMIT/DISCHARGE ACCOUNT ADMITTING ENCOUNTER LOCATION SOURCE NUMBER CLASS 01/03/2018/01/06/20 [id number] [facility] [place] Encounter [facility] ing:WPRoom: Repository WD410Phk: 1 01/03/2018 [id number] [facility] Amb[facility] BMSBuilding:Beto Waters MS.CF.[facility] Hospital Repository 01/03/2018 [id number] [place], Ambulatory BMSBuilding:Beto Waters MS.CF.[facility] Hospital Repository 01/03/2018 [id number] [place], Ambulatory BMSBuilding:Beto Waters MS.CF.[facility] Hospital Repository 01/02/2018 [id number] Ambulatory [facility] Hospital ing:LABSPEC Repository 01/02/2018/01/03/20 [id number] Ambulatory BMSBuilding:B [place] 18 MS.[facility] Hospital Repository 12/24/2017 [id number] Ambulatory [facility] Hospital ing:US Repository 12/24/2017 [id number] Ambulatory [facility] Hospital ing:PAVLAB Repository 12/24/2017/12/25/19 [id number] Ambulatory BMSBuilding:B [place] 18 MS.[facility] Hospital Repository 12/21/2017 [id number] Ambulatory BMSBuilding:B [place] MS.CF.[facility] Hospital Repository 12/21/2017/12/22/19 [id number] Ambulatory BMSBuilding:B [place] 18 MS.[facility] Hospital Repository 12/19/2017/12/20/19 [id number] Ambulatory BMSBuilding:B [place] 18 MS.[facility] Hospital Repository 12/19/2017/12/20/19 [id number] Ambulatory [address] Hospital ing:WPOUTRoom Repository : WP012 12/03/2017/12/04/19 [id number] Ambulatory BMSBuilding:B [place] 18 MS.[facility] Hospital Repository 11/16/2017/11/17/19 [id number] Ambulatory BMSBuilding:B [place] 18 MS.[facility] Hospital Repository 11/02/2017 [id number] Ambulatory [facility] Hospital ing:POLAB3 Repository 11/02/2017/11/03/19 [id number] Ambulatory BMSBuilding:B [place] 18 MS.[facility] Hospital Repository 09/28/2017 [id number] Ambulatory [facility] Hospital ing:US Repository 09/28/2017/09/29/19 [id number] Ambulatory BMSBuilding:Beto [place] 18 MS.[facility] Repository 08/31/2017 [id number] Ambulatory [facility] Hospital ing:US Repository 08/29/2017/08/31/19 [id number] Ambulatory [address] Repository 08/21/2017/08/22/19 [id number] Ambulatory BMSBuilding:Beto [place] 18 MS.[facility] Repository 07/24/2017 [id number] Ambulatory [facility] Hospital ing:LAB Repository 07/24/2017/07/25/19 [id number] Ambulatory BMSBuilding:Beto [place] 18 MS.[facility] Repository 06/27/2017 [id number] Ambulatory [facility] Hospital ing:LABSPEC Repository 06/27/2017/06/28/19 [id number] Ambulatory BMSBuilding:Beto Lina[place] 18 MS.[facility] Repository 05/08/2017/05/11/19 [id number] Ambulatory [address] Repository PAYERS PAYERS ENCOUNTER GUARANTOR PAYER SUBSCRIBER SOURCE 01/03/2018 SANDEE YUNG1 Primary [address]E [address], Insurance:ANTHEMPolic DENNISONDOB: [facility] [place] [address]Vgp: y Number: [id number] Hospital [id number] Repository () Date:9200-03-43XO [address] [place] [address]OQ: 01/03/2018 Secondary NOT GIVENUNK [place] Insurance:SELF PAY [facility] Number: Effective Repository Date:2018-01-03 01/03/2018 SANDEE YUNG1 Primary SAN[address]E [address] [place], Insurance:ANTHEMPolic DENNISONDOB: [facility] [place] [address]Cqx: y Number: [id number] Hospital [id number] Repository () Date:9929-03-91NU [address]MR[place], [place] [address]PN: 01/03/2018 Secondary NOT GIVENUNK [place] Insurance:SELF PAY [facility] Number: Effective Repository Date:2018-01-03 01/03/2018 SANDEE LLANOS Primary SANDEE [address] [place], Insurance:ANTHEMPolic DENNISONDOB: [place] [address]Rvg: y Number: [id number] Hospital [id number] Repository (HP) Date:8283-68-53DH [address]NVCHBS, [place] [address]FZ: 01/03/2018 Secondary NOT GIVENUNK [place] Insurance:SELF PAY [facility] Number: Effective Repository Date:2018-01-03 01/03/2018 SANDEE LLANOS Primary [place], Insurance:ANTHEMPolic DENNISONDOB: [place] [address]Tvj: y Number: [id number] Hospital [id number] Repository (HP) Date:0992-90-29TL [address]HXNOQ, [place] [address]HG: 01/03/2018 Secondary NOT GIVENUNK [place] Insurance:SELF PAY [facility] Number: Effective Repository Date:2018-01-03 01/02/2018 SANDEE LLANOS Primary SANDEE [address] [place], Insurance:ANTHEMPolic DENNISONDOB: [place] [address]Vxq: y Number: [id number] Hospital [id number] Repository (HP) Date:0883-95-66MN [address]EFIDVVJ, [place] [address]LQ: 01/02/2018 Secondary NOT GIVENUNK [place] Insurance:SELF PAY [facility] Number: Effective Repository Date:2018-01-02 01/02/2018 SANDEE LLANOS Primary [place]E [address] [place], Insurance:ANTHEMPolic DENNISONDOB: [place] [address]Ypp: y Number: [id number] Hospital [id number] Repository (HP) Date:0522-07-71GP [address] [place] [address]HE: 01/02/2018 Secondary NOT GIVENUNK [place] Insurance:SELF PAY [facility] Number: Effective Repository Date:2018-01-02 12/24/2017 SANDEE YUNG1 Primary SANDEE [address], Insurance:ANTHEMPolic DENNISONDOB: [place] [address]Xhg: y Number: [id number] Hospital [id number] Repository () Date:9086-84-42DO [address] [place] [address]LZ: 12/24/2017 Secondary NOT GIVENUNK [place] Insurance:SELF PAY [facility] Number: Effective Repository Date:2017-12-24 12/24/2017 SANDEE YUNG1 Primary [address]DEE [address] [place], Insurance:ANTHEMPolic DENNISONDOB: [place] [address]Ktj: y Number: [id number] Hospital [id number] Repository () Date:3209-78-55KE [address]RMEFLQF, [place] [address]IW: 12/24/2017 Secondary NOT GIVENUNK [place] Insurance:SELF PAY [facility] Number: Effective Repository Date:2017-12-24 12/24/2017 SANDEE YUNG1 Primary [address]E [address] [place], Insurance:ANTHEMPolic DENNISONDOB: [place] [address]Gky: y Number: [id number] Hospital [id number] Repository (HP) Date:4896-85-87DM [address]KVU, [place] [address]FT: 12/24/2017 Secondary NOT GIVENUNK [place] Insurance:SELF PAY [facility] Number: Effective Repository Date:2017-12-24 12/21/2017 SANDEE YUNG1 Primary NOT GIVENUNK [place] [address], Insurance:SELF PAY [facility] [place] [address]Vze: [facility] Number: Effective Repository (HP) Date:2017-12-21 12/21/2017 SANDEE [id number] Primary [address] [place], Insurance:ANTHEMPolic DENNISONDOB: [place] [address]Ijy: y Number: [id number] Hospital [id number] Repository () Date:5724-90-00OY [address]VFISJSO, [place] [address]BZ: 12/21/2017 Secondary NOT GIVENUNK [place] Insurance:SELF PAY [facility] Number: Effective Repository Date:2017-12-21 12/19/2017 SANDEE [id number] Primary [address]DEE [address] [place], Insurance:ANTHEMPolic DENNISONDOB: [facility] [place] [address]Aou: y Number: [id number] Hospital [id number] Repository () Date:9759-75-34UW [address]GM, [place] [address]WH: 12/19/2017 Secondary NOT GIVENUNK [place] Insurance:SELF PAY [facility] Number: Effective Repository Date:2017-12-19 12/19/2017 SANDEE [id number] Primary [address]DEE [address] [place], Insurance:ANTHEMPolic DENNISONDOB: [facility] [place] [address]Kln: y Number: [id number] Hospital [id number] Repository () Date:4005-10-76KD [address]DA, [place] [address]GS: 12/19/2017 Secondary NOT GIVENUNK [place] Insurance:SELF PAY [facility] Number: Effective Repository Date:2017-12-19 12/03/2017 Sandee [id number] Primary Sandee [address] [place], Insurance:ANTHEMPolic DennisonDOB: [place] [address]Uuj: y Number: [id number] Hospital [id number] Repository () Date:0046-45-08OB [address]CEASYK, [place] [address]EL: 12/03/2017 Secondary NOT GIVENUNK [place] Insurance:SELF PAY [facility] Number: Effective Repository Date:2017-11-16 11/16/2017 Sandee Toussainton561 Primary Sandee [address] [place], Insurance:ANTHEMPolic DennisonDOB: [place] [address]Dqd: y Number: [id number] Hospital [id number] Repository () Date:6572-40-59LM [address]WENXLQCOS[address]ARANO [address]SO: 11/16/2017 Secondary NOT GIVENUNK [place] Insurance:SELF PAY [facility] Number: Effective Repository Date:2017-11-16 11/02/2017 Sandee Toussainton561 Primary Sandee [address] [place], Insurance:ANTHEMPolic DennisonDOB: [place] [address]Ibr: y Number: [id number] Hospital [id number] Repository (HP) Date:1749-37-34EX [address]PPW[address] [address]HB: 11/02/2017 Secondary NOT GIVENUNK [place] Insurance:SELF PAY [facility] Number: Effective Repository Date:2017-11-02 11/02/2017 Sandee Yung1 Primary Sandee [address] [place], Insurance:ANTHEMPolic DennisonDOB: [place] [address]Ngc: y Number: [id number] Hospital [id number] Repository (HP) Date:5575-66-80WM [address]XZECA[address]AR[address] [address]BC: 11/02/2017 Secondary NOT GIVENUNK [place] Insurance:SELF PAY [facility] Number: Effective Repository Date:2017-11-02 09/28/2017 Sandee Toussainton561 Primary Sandee [address] [place], Insurance:ANTHEMPolic DennisonDOB: [place] [address]Aib: y Number: [id number] Hospital [id number] Repository () Date:1753-89-64UG [address]NRMYHGM, [place] [address]LU: 09/28/2017 Secondary NOT GIVENUNK [place] Insurance:SELF PAY [facility] Number: Effective Repository Date:2017-09-03 09/28/2017 Sandee Yung1 Primary Sandee [address] [place], Insurance:ANTHEMPolic DennisonDOB: [place] [address]Dsq: y Number: [id number] Hospital [id number] Repository () Date:2874-44-81XH [address]PLHTJEM, [place] [address]LS: 09/28/2017 Secondary NOT GIVENUNK [place] Insurance:SELF PAY [facility] Number: Effective Repository Date:2017-09-28 08/31/2017 Sandee Llanos Primary Sandee [address] [place], Insurance:ANTHEMPolic DennisonDOB: [place] [address]Dvx: y Number: [id number] Hospital [id number] Repository (HP) Date:6971-42-43CI [address]PLHRUAQ, [place] [address]LB: 08/31/2017 Secondary NOT GIVENUNK [place] Insurance:SELF PAY [facility] Number: Effective Repository Date:2017-08-21 08/21/2017 Sandee Llanos Primary Sandee [address] [place], Insurance:ANTHEMPolic DennisonDOB: [place] [address]Eom: y Number: [id number] Hospital [id number] Repository (HP) Date:0425-92-68RZ [address]JCHXDHO, [place] [address]PD: 08/21/2017 Secondary NOT GIVENUNK [place] Insurance:SELF PAY [facility] Number: Effective Repository Date:2017-08-21 07/24/2017 Sandee Llanos Primary Sandee [address] [place] [place], Insurance:ANTHEMPolic DennisonDOB: [place] [address]Dej: y Number: [id number] Hospital [id number] Repository (HP) Date:7985-00-86GR [address]OAKDPSV, [place] [address]TE: 07/24/2017 Secondary NOT GIVENUNK [place] Insurance:SELF PAY [facility] Number: Effective Repository Date:2017-07-24 07/24/2017 Sandee [address] [place], Insurance:ANTHEMPolic DennisonDOB: [place] [address]Krp: y Number: [id number] Hospital [id number] Repository () Date:9361-50-21AB [address] [place] [address]VY: 07/24/2017 Secondary NOT GIVENUNK [place] Insurance:SELF PAY [facility] Number: Effective Repository Date:2017-07-24 06/27/2017 Sandee Yung1 Primary [address]ee [address], Insurance:ANTHEMPolic DennisonDOB: [place] [address]Kvg: y Number: [id number] Hospital [id number] Repository () Date:8127-30-57EF [facility] [address]500[address]VJQNGQO, [place] [address]UO: 06/27/2017 Secondary NOT GIVENUNK [place] Insurance:SELF PAY [facility] Number: Effective Repository Date:2017-06-27 06/27/2017 Sandee Gurrola Primary [address]ee [address] Insurance:ANTHEMPolic DennisonDOB: [place] y Number: [id number] Hospital [address]Bna: (941) [id number] Repository [phone] () Date:2412-46-35OH [address]LFMINPC, [place] [address]WE: 06/27/2017 Secondary NOT GIVENUNK [place] Insurance:SELF PAY [facility] Number: Effective Repository Date:2017-06-27
== END 2018-01-05 15:45 | disposition home or self-care (01) | DRG 807 ==
LOC: WPOUT 16:16 → WP 01-04 01:04
PROVIDERS: Admitting Provider Obstetrics & Gynecology; Referring Provider Obstetrics & Gynecology; Visit Provider Obstetrics & Gynecology
DX: O34.219 Maternal care for unspecified type scar from previous cesarean delivery (principal); Z37.0 Single live birth; O99.824 Streptococcus B carrier state complicating childbirth; Z3A.37 37 weeks gestation of pregnancy; Z87.891 Personal history of nicotine dependence; O99.344 Other mental disorders complicating childbirth; F41.8 Other specified anxiety disorders; Z79.899 Other long term (current) drug therapy
CPT/HCPCS: 59025; 59050; 84112; 85027; 86850; 86900; 87653; 88307; 99218; J7120; A4216; G0378

== ENCOUNTER → 2021-01-19 | Outpatient (CLI) | payer BC, SELFPAY ==
[2021-01-25 13:19] LABS: HPV APTIMA, High Risk Negative (Negative)
== END | disposition home or self-care (01) ==
LOC: LABSPEC 15:24
PROVIDERS: Visit Provider Obstetrics & Gynecology
DX: Z01.419 Encounter for gynecological examination (general) (routine) without abnormal findings (principal)
CPT/HCPCS: 87624; 88175; G0145

== ENCOUNTER → 2021-01-26 13:11 | Outpatient (CLI) | payer BC, SELFPAY ==
--- NOTE | 2021-01-26 13:20 | CT_ITS ---
STUDY: CT ABDOMEN AND PELVIS WITHOUT CONTRAST REASON FOR EXAM: Female, 40 years old. Left upper quadrant and lower quadrant pain. RADIATION DOSAGE (If Supplied By Facility): CTDIvol = ( 20.48 ) mGy, DLP = ( 1125.63 ) mGycm TECHNIQUE: Transaxial images were obtained from the dome of the diaphragm to the symphysis pubis without oral contrast, and without intravenous contrast. Sagittal and coronal images were reconstructed. Individualized dose optimization techniques were used for this CT. COMPARISON: None. FINDINGS: There is a 2 mm noncalcified nodule in the peripheral lateral aspect of the right lower lobe as seen on axial image #1. The visualized portions of the heart are within normal limits. There is decreased attenuation of the liver consistent with steatosis. There is a solitary gallstone. Normal spleen. Normal pancreas. Normal bilateral adrenal glands. Normal right kidney. 2 mm nonobstructive contrast in the upper pole calyx of the left kidney. Tiny nonobstructive calculi are also seen in the lower pole calyx of the left kidney. Normal visualized stomach. Normal small intestine. Normal colon. The appendix is visualized and appears normal. Normal abdominal aorta. Normal inferior vena cava. There is borderline retroperitoneal lymphadenopathy with enlarged nodes no greater than 10mm in the short axis diameter. Normal urinary bladder. IUD is seen within the uterus. There is a left-sided inguinal hernia containing adipose tissue. Normal osseous structures. CT/Abdomen/Pelvis without Cont IMPRESSION: Solitary gallstone. Fatty infiltration of the liver. Nonobstructive calculi seen in the left kidney. 2 mm noncalcified nodule in the peripheral lateral aspect of the right lower lobe. A 12 month follow-up is recommended. Electronically Signed: Óscar Campbell MD at 13:54 EST , Service support ,
== END ==
PROVIDERS: Referring Provider Obstetrics & Gynecology; Visit Provider Obstetrics & Gynecology
DX: R10.9 Unspecified abdominal pain (principal)
CPT/HCPCS: 74176

== ENCOUNTER → 2022-05-05 | Outpatient (CLI) | payer BC, SELFPAY ==
--- NOTE | 2022-05-05 11:01 | BI_ITS ---
MAMMOGRAPHY - BILATERAL SCREENING REASON FOR EXAM: Female, 42 years old. Routine annual screening examination. PERTINENT HISTORY: Non-contributory. TECHNIQUE: Digital bilateral breast brenda (3D mammographic acquisition) in the CC and MLO projections. 2-D mediolateral oblique (MLO) and craniocaudad (CC) views of both breasts were obtained. CAD: Full Field Digital Mammography with Computer Added Detection was performed. COMPARISON: None. Baseline examination. FINDINGS: Breast Composition: The breasts are almost entirely fatty. There are no dominant masses or suspicious calcifications. Small benign-appearing bilateral axillary lymph nodes. No other significant abnormalities are identified. BI/SCRN MAMM (CAD)W/BRENDA BILAT IMPRESSION: Negative screening mammogram. Yearly followup mammogram recommended. (A) ASSESSMENT CATEGORY: BIRADS Category 2: Benign. A letter regarding these results will be sent to the patient by the facility within 30 days. Approximately 10% of breast cancers are not detected by mammography. A normal mammogram should not delay biopsy of a clinically suspicious abnormality. [id number] Electronically Signed: Óscar Campbell MD at 12:02 EDT ,
== END | disposition home or self-care (01) ==
LOC: OPBI 11:01
PROVIDERS: Referring Provider Nurse Practitioner Women's Health; Visit Provider Nurse Practitioner Women's Health
DX: Z12.31 Encounter for screening mammogram for malignant neoplasm of breast (principal)
CPT/HCPCS: 77063; 77067

== ENCOUNTER → 2022-07-19 | Outpatient (CLI) | payer BC, SELFPAY ==
[2022-07-19 15:17] LABS: Erythrocyte Sedimentation Rate 21 mm/hr (0-30)
[2022-07-19 15:18] LABS: Absolute Lymphocyte Count 3.66 X10^3/uL (0.83-4.51); Absolute Neutrophil Count 7.1 X10^3/uL (2.0-7.7); Basophil# 0.07 X10^3/uL; Basophil% 0.6 % (0-1); Eosinophil# 0.24 X10^3/uL; Hematocrit 37.3 % (37-47); Hemoglobin 11.3 g/dL (12.0-15.0); Lymphocyte # 3.66 X10^3/ul (0.83-4.51); Lymphocyte % 31.1 % (19-41); Mean Corp Hgb Conc 30.3 g/dL (32-36); Mean Corpuscular Hgb 24.2 pg (27.0-32.0); Mean Platelet Vol. 10.3 fl (6.2-12.0); Monocyte# 0.69 X10^3/uL; Monocyte% 5.9 % (0-10); NRBC Flagged by Analyzer 0 % (0-5); Neutrophil # 7.07 X10^3/uL (2.7-7.7); Neutrophil % 60.1 % (47-70); Platelet Count 419 K/mm3 (150-450); RBC Distribution Width CV 14.2 % (11.6-14.6); RBC Distribution Width SD 41.1 fl (35.1-43.9); Red Blood Count 4.66 M/mm3 (4.2-5.4); White Blood Count 11.8 K/mm3 (4.4-11.0)
[2022-07-19 15:32] LABS: ALB/GLOB Ratio 0.9 RATIO (0.9-2.4); AST(SGOT) 19 U/L (15-37); Alanine Aminotransfer ALT/SGPT 24 U/L (13-56); Albumin, Serum 3.6 g/dL (3.2-5.0); Alkaline Phosphatase 85 U/L (45-117); Anion Gap 4 (5-15); BUN 14 mg/dL (7-18); BUN/Creat Ratio 18.8 RATIO (10-20); Calcium,Total 9.2 mg/dL (8.5-10.1); Chloride 105 mmol/L (98-107); Creatinine, Serum 0.75 mg/dL (0.55-1.02); EST Glomerular Filtration Rate 91 mL/min (>60); Est Glom Filt Rate - Afr Amer 110 mL/min (>60); Globulin 4.2 g/dL (2.2-4.2); Glucose 79 mg/dL (74-106); LDH 178 U/L (84-246); Potassium 3.8 mmol/L (3.5-5.1); Protein, Total 7.8 g/dL (6.4-8.2); Sodium Level 137 mmol/L (136-145)
[2022-07-21 15:08] LABS: Endomysial Antibody IgA Negative (Negative); Immunoglobulin A 247 mg/dL (87-352); t-Transglutaminase IgA <2 U/mL (0-3)
[2022-07-24 14:37] LABS: Anti-Centromere B Ab <0.2 AI (0.0-0.9); Anti-Chromatin <0.2 AI (0.0-0.9); Anti-Jo <0.2 AI (0.0-0.9); Anti-Scleroderma-70 AB <0.2 AI (0.0-0.9); Anti-dsDNA Ab 7 IU/mL (0-9); Beef <0.10 kU/L (Class 0); Chocolate <0.10 kU/L (Class 0); Clam <0.10 kU/L (Class 0); Codfish <0.10 kU/L (Class 0); Corn <0.10 kU/L (Class 0); Egg, White <0.10 kU/L (Class 0); Egg, Whole <0.10 kU/L (Class 0); Milk (Cow) <0.10 kU/L (Class 0); Peanut <0.10 kU/L (Class 0); Pork <0.10 kU/L (Class 0); RNP Ab 1.7 AI (0.0-0.9); SCALLOP <0.10 kU/L (Class 0); SESAME SEED <0.10 kU/L (Class 0); SJOGREN'S Anti-SS-A test < 0.2 AI (0.0-0.9); SJOGREN'S Anti-SS-B test 0.3 AI (0.0-0.9); Shrimp <0.10 kU/L (Class 0); Smith Ab <0.2 AI (0.0-0.9); Soybean <0.10 kU/L (Class 0); Walnut, (Food) <0.10 kU/L (Class 0); Wheat <0.10 kU/L (Class 0)
[2022-07-24 17:07] LABS: Albumin 3.7 g/dL (2.9-4.4); Alpha-1-Globulins 0.2 g/dL (0.0-0.4); Alpha-2-Globulins 0.9 g/dL (0.4-1.0); Cytoplasmic Ab (C-ANCA) <1:20 titer (Neg:<1:20); Gastrin, Serum 12 pg/mL (0-115); Immunoglobulin A 239 mg/dL (87-352); Immunoglobulin E 33 IU/mL (6-495); Immunoglobulin G 801 mg/dL (586-1602); Immunoglobulin M 121 mg/dL (26-217); PROEL- TOTAL PROTEIN 7.2 g/dL (6.0-8.5); Perinuclear Ab (P-ANCA) <1:20 titer (Neg:<1:20)
== END | disposition home or self-care (01) ==
PROVIDERS: Referring Provider Internal Medicine Gastroenterology; Visit Provider Internal Medicine Gastroenterology
DX: K76.0 Fatty (change of) liver, not elsewhere classified (principal); R10.9 Unspecified abdominal pain; K82.9 Disease of gallbladder, unspecified
CPT/HCPCS: 36415; 80053; 82784; 82785; 82941; 83516; 83615; 84165; 85025; 85652; 86003; 86005; 86140; 86225; 86235; 86255; 86256; 86334

== ENCOUNTER → 2022-08-15 | Outpatient (CLI) | payer BC, SELFPAY ==
--- NOTE | 2022-08-15 08:15 | US_ITS ---
STUDY: ABDOMINAL ULTRASOUND - RIGHT UPPER QUADRANT; ELASTOGRAPHY REASON FOR VISIT: Female, 42 years old. Fatty infiltration of the liver. TECHNIQUE: Ultrasound evaluation of the right upper quadrant was performed with real-time and static sims-scale imaging. Point quantification shear wave elastography was performed ([employer]). TECHNICAL QUALITY: Adequate. COMPARISON: None. FINDINGS: Liver: The liver is enlarged and measures 20 cm. There is increased echogenicity consistent with fatty infiltration. The bile ducts are within normal limits. There is hepatic color flow. The direction of portal flow is hepatopetal. There is no demonstrated mass lesion. Median liver stiffness measured 6.2 kPa. Gallbladder: Normal distended gallbladder. The gallbladder wall measures 2.0 mm. There is a negative sonographic Zhang''s sign. There is no pericholecystic fluid. There is a solitary echogenic gallstone within the gallbladder. The gallstone measures 2 cm x 1.8 cm x 1.3 cm. Common Bile Duct (C.B.D.): The common bile duct measures 2.3 mm. Pancreas: There is normal echogenicity of the visualized pancreas. The tail portion of the pancreas is obscured due to overlying bowel gas. There is no demonstrated pancreatic mass or cyst. Right Kidney: Normal size of the right kidney. The right kidney measures 11.5 cm x 5.9 cm x 5.1 cm. Normal renal cortex. The right cortex measures 2.0 cm. There is no demonstrated renal mass or cyst. There is no right hydronephrosis. US/ABD Limited w/ Elastography IMPRESSION: 1. Liver stiffness measures 6.2 kPa compatible with F2-F3 (Mild to moderate liver fibrosis) Metavir score. Electronically Signed: Óscar Campbell MD at 10:07 EDT ,
[2022-08-19 19:07] LABS: Calprotectin, Stool 7 ug/g (0-120); Fats, Neutral Normal (.); Fats, Total Normal (.)
[2022-08-21 09:07] LABS: Pancreatic Elastase, Fecal 402 (>200)
== END | disposition home or self-care (01) ==
PROVIDERS: Referring Provider Internal Medicine Gastroenterology; Visit Provider Internal Medicine Gastroenterology
DX: K76.0 Fatty (change of) liver, not elsewhere classified (principal); K82.9 Disease of gallbladder, unspecified; R10.9 Unspecified abdominal pain; K58.9 Irritable bowel syndrome, unspecified
CPT/HCPCS: 76705; 76981; 82274; 82653; 82705; 83630; 83993; 87177; 87209; 87329; 87493; 87506

== ENCOUNTER → 2022-08-29 | Outpatient (CLI) | payer BC, SELFPAY ==
[2022-08-29 15:25] LABS: EXAGEN MAILED SPECIMEN
[2022-08-29 17:58] LABS: Absolute Lymphocyte Count 2.81 X10^3/uL (0.83-4.51); Absolute Neutrophil Count 7.1 X10^3/uL (2.0-7.7); Basophil# 0.06 X10^3/uL; Basophil% 0.5 % (0-1); Eosinophil# 0.32 X10^3/uL; Eosinophils% 2.9 % (0-5); Hematocrit 38.5 % (37-47); Hemoglobin 11.8 g/dL (12.0-15.0); Lymphocyte # 2.81 X10^3/ul (0.83-4.51); Lymphocyte % 25.4 % (19-41); Mean Corp Hgb Conc 30.6 g/dL (32-36); Mean Corpuscular Hgb 23.8 pg (27.0-32.0); Mean Corpuscular Volume 77.8 fL (81-99); Mean Platelet Vol. 10.1 fl (6.2-12.0); Monocyte# 0.75 X10^3/uL; Monocyte% 6.8 % (0-10); NRBC Flagged by Analyzer 0 % (0-5); Neutrophil # 7.09 X10^3/uL (2.7-7.7); Neutrophil % 63.9 % (47-70); Platelet Count 386 K/mm3 (150-450); RBC Distribution Width CV 15.1 % (11.6-14.6); RBC Distribution Width SD 42.2 fl (35.1-43.9); Red Blood Count 4.95 M/mm3 (4.2-5.4); White Blood Count 11.1 K/mm3 (4.4-11.0)
[2022-08-29 17:59] LABS: Glucose, Dipstick Normal (Normal); Ketone-Dipstick Negative (Negative); Leukocyte Esterase-Dipstick 25 /ul (Negative); Nitrite-Dipstick Negative (Negative); Occult Blood-Urine 50 /ul (Negative); Protein-Dipstick Negative (Negative); Urine Bilirubin Dipstick Negative (Negative); Urine Urobilinogen Normal (Normal)
[2022-08-29 18:06] LABS: Color, Urine Yellow (Yellow); Urine Clarity Clear (Clear)
[2022-08-29 18:18] LABS: International Normalized Ratio 0.9; Prothrombin Time (Protime)PT. 12.5 SECONDS (11.7-14.9)
[2022-08-29 18:19] LABS: Partial Thromboplast Time 34.2 Seconds (24.1-36.2)
[2022-08-29 18:22] LABS: Erythrocyte Sedimentation Rate 11 mm/hr (0-30)
[2022-08-29 18:45] LABS: AST(SGOT) 32 U/L (15-37); Alanine Aminotransfer ALT/SGPT 36 U/L (13-56); Albumin, Serum 3.8 g/dL (3.2-5.0); Alkaline Phosphatase 83 U/L (45-117); Anion Gap 4 (5-15); BUN 11 mg/dL (7-18); BUN/Creat Ratio 14.1 RATIO (10-20); Chloride 106 mmol/L (98-107); Creatinine, Serum 0.78 mg/dL (0.55-1.02); EST Glomerular Filtration Rate 87 mL/min (>60); Est Glom Filt Rate - Afr Amer 105 mL/min (>60); Globulin 3.9 g/dL (2.2-4.2); Glucose 77 mg/dL (74-106); Potassium 4.2 mmol/L (3.5-5.1); Protein, Total 7.7 g/dL (6.4-8.2); Sodium Level 138 mmol/L (136-145)
[2022-08-29 19:15] LABS: Protein, Urine (Random) < 6.0 mg/dL (<11.9)
[2022-08-29 19:30] LABS: Hepatitis B Surface Antibody Non-Reactive; Hepatitis B Surface Antigen Non-Reactive (Nonreactive); Hepatitis C Antibody Non-Reactive (Nonreactive)
[2022-09-01 16:09] LABS: Dilute Prothrombin Time (dPT) 36.8 sec (0.0-47.6); Dilute Russell Viper Venom 41.8 sec (0.0-47.0); Hexagonal Phase Phospholipid 5 sec (0-11); Hexagonal Phase Phospholipid 2 5 sec (0-11); Interpretation Comment: (.); PTT-LA 49.4 sec (0.0-43.5); PTT-LA Mix 44.9 sec (0.0-40.5); dPT Confirm Ratio 1.16 Ratio (0.00-1.34)
== END | disposition home or self-care (01) ==
LOC: MTLAB 14:22
PROVIDERS: Referring Provider Internal Medicine Rheumatology; Visit Provider Internal Medicine Rheumatology
DX: M06.4 Inflammatory polyarthropathy (principal); R76.8 Other specified abnormal immunological findings in serum
CPT/HCPCS: 36415; 80053; 81002; 82570; 84156; 85025; 85598; 85610; 85652; 85670; 85730; 86140; 86706; 86803; 87340

== ENCOUNTER → 2022-09-07 | Outpatient (CLI) | payer BC, SELFPAY ==
--- NOTE | 2022-09-07 10:22 | NM_ITS ---
CLINICAL: 42-year-old female with history of abdominal pain. SEMI-SOLID PHASE 99m Tc SULFUR COLLOID GASTRIC EMPTYING STUDY COMPARISON: None available FINDINGS: The patient was administered 1.1 mCi of 99m Tc sulfur colloid mixed with oatmeal and consumed per os. Image acquisitions in the anterior-posterior projections were obtained for 60 minutes. There is prompt visualization of the stomach. There is no gastroesophageal reflux identified. The T ? raw data emptying was calculated to be 49.82 minutes, (Normal: 12-56 minutes). NM/Gastric Emptying Study IMPRESSION: 1. NORMAL 99m Tc sulfur colloid semi-solid phase (oatmeal) gastric emptying imaging examination. A. There is normal and preserved semi-solid phase gastric emptying compared to normal controls. (Redd et al, J Nucl Med Tech 38: 186, 2010). Electronically Signed: Julian Serrano, at 9:11 EDT ,
== END | disposition home or self-care (01) ==
PROVIDERS: Referring Provider Internal Medicine Gastroenterology; Visit Provider Internal Medicine Gastroenterology
DX: R10.9 Unspecified abdominal pain (principal)
CPT/HCPCS: 36415; 78264; A9500

== ENCOUNTER 2022-10-10 09:32 | Day surgery (SDC) | payer BC, SELFPAY ==
[2022-10-10] VITALS (9 sets, daily range): BP systolic 107–143; BP diastolic 69–85; PULSE 64–94; RESP 16–18; TEMP 35.9–36.4; O2SAT 92–100; BMI 40.3
--- NOTE | 2022-10-10 | GALL_PTH ---
PATIENT: JUSTYN BAILEY LOC: [facility] [place] U#:[id number] AGE/SX: 42/F ROOM: RE10/10/[address]: Dr. Andrea Gaona MD : 1980 BED: DIS: 10/10/2022 SPEC #: [id number] RECD: 10/10/22 16:49 STATUS: ESME UPTON #: [id number] JACKELINE: 10/10/22 00:[address]: Andrea Gaona DEPT: SURGICAL PATHOLOGY RECD BY: Melissa Parson ENTERED: 10/11/22 08:33 SP TYPE: RONALDO MILLS DR: No Primary Care Phys Tissues: Gallbladder, NOS Procedures: Surgery Specimen Level III HEADER OPERATION: Laparoscopic cholecystectomy with IOC PRE-OP DIAGNOSIS: Gallbladder disease TISSUE SUBMITTED: Gallbladder MICROSCOPIC DIAGNOSIS Gallbladder, cholecystectomy: Chronic cholecystitis and cholelithiasis. AM:maribell 10/12/2022 MICROSCOPIC DESCRIPTION Slides are reviewed. GROSS DESCRIPTION Received is one container labeled with the patient's name and designated gallbladder. The specimen consists of a gallbladder measuring 10.0 cm in length and up to 3.5 cm in diameter. The external surface is pink-quiroz, smooth and glistening for the most part. Focally it is granular, hemorrhagic and contains cautery artifact. The gallbladder contains green-yellow mucoid bile and one ovoid to round, black stone measuring 1.8 cm in greatest dimension. The mucosa is bile-stained and without any mass lesions. The gallbladder wall measures up to 0.2 cm in thickness. It Disaster Recovery Manager sections from the gallbladder and the cystic duct are submitted in one cassette. / SJ:rg 10/11/2022 TC:3 [facility]: [id number]
--- NOTE | 2022-10-10 10:00 | RAD_ITS ---
CLINICAL HISTORY: Female, 42 years old. Abdominal pain PROCEDURE: CHOLANGIOGRAM - intraoperative CONSENT: SEDATION: FLUOROSCOPY TIME (if supplied): (4.1 seconds) Placement of the catheter and the procedure were performed by: Operating surgeon Fluoroscopy was provided by histotechnologist supervisor, who was present in the room time of the procedure. TECHNIQUE: (Fluoroscopic guided intraoperative cholangiogram was performed in the anterior projection. FINDINGS: 85 fluoroscopic guided images were obtained during the exam to document findings during the study. For more complete information recommend correlation with surgical notes) RAD/Cholangiogram/ O R,Initial IMPRESSION: Fluoroscopic guided intraoperative cholangiogram Electronically Signed: Forrest Barboza MD at 22:56 EDT ,
[2022-10-10 10:01] LABS: Internal QC Validated? YES +Cl - CLEAR BKGD; Pregnancy, Urine Negative Negative
[2022-10-10] MEDS: Lactated Ringers 1,000 ML 15 ML IV (10:24)
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
[2022-10-10] MEDS: Cefazolin 2 GM in 0.9% Normal Saline 100 ML IV (12:35)
[2022-10-10] MEDS: Bupivacaine Mpf 0.5% 30 ML VIAL (13:09)
--- NOTE | 2022-10-10 14:52 | OP.PCM_ITS ---
Report of Operation Date of Procedure: 10/10/22 Pre-Operative Diagnosis: Biliary dyskinesia and cholelithiasis Post-Operative Diagnosis: 1. Biliary dyskinesia and cholelithiasis 2. Chronic cholecystitis Surgery/Procedure Performed:: Laparoscopic cholecystectomy with intraoperative cholangiogram Description of Surgical Findings:: ? Moderately inflamed gallbladder in the region of the infundibulum with contraction of the hepatocystic triangle and adhesions to the second portion of the duodenum ? Cholangiogram with slight extravasation showing filling of the common bile duct without filling defect and retrograde filling of the common hepatic duct system ? Liver with gross evidence of fatty liver infiltration Surgeon: Andrea Gaona director of plant operations: Pee Broderick Type of Anesthesia: General/Supplemental Anesthesiologist: Aidan Kennedy Specimen's removed: gallbladder Estimated Blood Loss (mL): 15 Description of Procedure: After proper identification in the preoperative holding area the patient was brought to the operating room where she was positioned supine on the operating room table. Preoperatively SCDs were placed and antibiotics were administered. General anesthesia was then induced. Patient's abdomen was prepped and draped i n usual sterile fashion. A formal timeout was conducted to confirm both patient and the procedure. Procedure was begun with a supraumbilical incision which was extended deeply down to the level of the fascia. The fascia was elevated and incised, as well as the peritoneum. A finger sweep was performed to ensure there were no underlying adhesions and a 12 mm balloon trocar was inserted. Pneumoperitoneum was established at 15 mmHg. Three additional trocars were placed in the epigastrium and in the right upper quadrant (3 x 5 mm). Inspection of the peritoneum revealed no inadvertent injury to the viscera below. The gallbladder was visualized with relatively minimal inflammation around the gallbladder fundus but there were adhesions of omentum and the second portion of the duodenum to the gallbladder. These adhesions were bluntly taken down and then the gallbladder fundus was then grasped and elevated cephalad. Then, using careful dissection the peritoneum was opened and the structures of the hepatocystic triangle were delineated. Once the critical view of safety was obtained, the cystic duct was singly clipped and partially divided with a ductotomy. There is immediate backflow of yellow bile with this maneuver. Using an Oakes Kesha clamp, a cholangiocatheter was fed into the proximal segment of the cystic duct and clamped into place. Under fluoroscopy a cholangiogram was then obtained showing a standard length cystic duct flowing into a common bile duct with unobstructed antegrade flow of contrast into the duodenum. Some extravasation was noted during the process of obtaining the cholangiogram, but the catheter was not repositioned given the diminutive size of the cystic duct and desire to not inadvertently avulsed the duct. There was also retrograde flow through the common hepatic duct into the right and left hepatic ducts. Satisfied with this result, the cholangiocatheter was withdrawn and the proximal cystic duct was sealed with clips and the cystic duct was completely transected. The same process was used for the cystic artery after first sealing a branch of the cystic artery supplying the more distal aspect of the gallbladder as well. The gallbladder was then removed from the gallbladder fossa with the use of electrocautery. Selective electrocautery was used to obtain hemostasis in the gallbladder fossa. The gallbladder was placed in an Endo Catch bag and removed from the peritoneum. Morison's pouch was irrigated and the effluent was suctioned free of the peritoneum. Hemostasis was again confirmed in the gallbladder fossa as well as a minute rent in the liver capsule. Prior to evacuation of pneumoperitoneum, the 12 mm port site fascia was closed under direct laparoscopic visualization using #1 PDS and a Juwan Montes suture passer with a [id number] technique. A total of 30 mL of anesthetic was injected at the port sites for postoperative pain control. The skin of each port site was then closed in subcuticular fashion using 4-0 Monocryl. Steri- Strips and bandages were applied as dressings. Patient tolerated the procedure well without any apparent complications. On emergence from their anesthetic the patient was taken to PACU for ongoing recovery. Grafts/Implants Used: None Complications None Admit VTE Documentation VTE Mechan Device Prophylaxis: SCD's Procedures Digestive 40xxx-49xxx: [id number] Laparo cholecystectomy/graph
--- NOTE | 2022-10-10 16:24 | DCINST_ITS ---
Discharge Instructions Diet Discharge Diet: No restrictions Activity Discharge Activity: May Not Drive (No driving while using narcotic pain medication) and May Shower (Postoperative day 1) May shower in (days): 1 Ice area for (Minutes): 20 Lifting Restrictions: No lifting greater than 15 pounds for 2 weeks after surgery Dressing / Incision Call your doctor if your incision/area has: Continuous Slow Oozing, Increased Pain/ Swelling, Increased Redness, Foul Smelling Discharge and Swelling at the incision site Call your doctor if you observe: Fever of 101 or Higher Remove Dressing in: 1 day (Please leave Steri-Strips intact until they fall off spontaneously or are taken off at your follow-up visit) Cleanse incision/area with: Soap & Water Follow Up Care Please Follow Up With: Andrea Gaona MD When: 7-10days postop Test Results: Test results from this visit will be discussed in further detail at your follow- up appointment, if applicable. Discharge Plan Admission Primary Reason for Your Visit: Laparoscopic cholecystectomy Attending Provider: Andrea Gaona Primary Care Provider: Care Physician,Joanna Primary Discharge Orders/Prescriptions Prescriptions: New oxycodone 5 mg tablet 5 mg PO Q6H PRN (Reason: pain) 5 Days Qty: 14 0RF Continued multivitamin Tablet 1 tab PO DAILY Liletta 20.1 mcg/24 hrs (6 yrs) 52 mg intrauterine device 1 device intrauterine ONCE Rx Instructions: as a single dose sertraline 100 mg tablet 100 mg PO DAILY Qty: 90 4RF Referrals / Follow Up: Care Physician,No Primary [Primary Care Provider] - Disposition Disposition (needs filled in before D/C Order can be placed): Home, Self Care
[2022-10-10] MEDS: Ketorolac 15 MG/ML Vial IV (16:52)
== END 2022-10-10 17:53 | disposition home or self-care (01) ==
LOC: SDC 09:33 → AC 09:35
PROVIDERS: Anesthesiology; Referring Provider Surgery; Visit Provider Surgery
PROC: (CPT 47610; principal; 2022-10-10 10:40)
DX: K80.10 Calculus of gallbladder with chronic cholecystitis without obstruction (principal); F32.A Depression, unspecified; F41.9 Anxiety disorder, unspecified; Z79.899 Other long term (current) drug therapy; Z87.891 Personal history of nicotine dependence
CPT/HCPCS: 47563; 00790; 74300; 76000; 81025; 88304; 93005; J7120; J2405

== ENCOUNTER → 2023-04-02 | Outpatient (CLI) | payer BC, SELFPAY ==
[2023-04-02 15:36] LABS: Absolute Lymphocyte Count 3.61 X10^3/uL (0.83-4.51); Absolute Neutrophil Count 5.7 X10^3/uL (2.0-7.7); Basophil# 0.06 X10^3/uL; Basophil% 0.6 % (0-1); Eosinophil# 0.24 X10^3/uL; Eosinophils% 2.3 % (0-5); Hematocrit 39.2 % (37-47); Hemoglobin 11.9 g/dL (12.0-15.0); Lymphocyte # 3.61 X10^3/ul (0.83-4.51); Lymphocyte % 35.2 % (19-41); Mean Corp Hgb Conc 30.4 g/dL (32-36); Mean Corpuscular Hgb 23.6 pg (27.0-32.0); Mean Corpuscular Volume 77.6 fL (81-99); Mean Platelet Vol. 10.5 fl (6.2-12.0); Monocyte# 0.62 X10^3/uL; NRBC Flagged by Analyzer 0 % (0-5); Neutrophil # 5.68 X10^3/uL (2.7-7.7); Neutrophil % 55.5 % (47-70); Platelet Count 406 K/mm3 (150-450); RBC Distribution Width CV 16.1 % (11.6-14.6); Red Blood Count 5.05 M/mm3 (4.2-5.4); White Blood Count 10.3 K/mm3 (4.4-11.0)
[2023-04-02 16:08] LABS: Erythrocyte Sedimentation Rate 12 mm/hr (0-30)
[2023-04-02 16:15] LABS: AST(SGOT) 17 U/L (15-37); Alanine Aminotransfer ALT/SGPT 28 U/L (13-56); Albumin, Serum 3.7 g/dL (3.2-5.0); Alkaline Phosphatase 83 U/L (45-117); Anion Gap 6 (5-15); BUN 13 mg/dL (7-18); Calcium,Total 9.2 mg/dL (8.5-10.1); Chloride 107 mmol/L (98-107); Creatinine, Serum 0.81 mg/dL (0.55-1.02); EST Glomerular Filtration Rate 82 mL/min (>60); Est Glom Filt Rate - Afr Amer 100 mL/min (>60); Globulin 3.7 g/dL (2.2-4.2); Glucose 109 mg/dL (74-106); Protein, Total 7.4 g/dL (6.4-8.2); Sodium Level 140 mmol/L (136-145)
== END | disposition home or self-care (01) ==
PROVIDERS: Referring Provider Internal Medicine Rheumatology; Visit Provider Internal Medicine Rheumatology
DX: M06.4 Inflammatory polyarthropathy (principal); R76.8 Other specified abnormal immunological findings in serum
CPT/HCPCS: 36415; 80053; 85025; 85652; 86140

== ENCOUNTER → 2023-04-30 | Outpatient (CLI) | payer BC, SELFPAY ==
[2023-04-30 17:54] LABS: Vitamin D,25 Hydroxy 27.7 ng/mL
[2023-04-30 18:14] LABS: Thyroid Stim Hormone (TSH) 1.39 uIU/mL (0.358-3.74)
== END | disposition home or self-care (01) ==
LOC: MTLAB 14:24
PROVIDERS: Referring Provider Obstetrics & Gynecology; Visit Provider Obstetrics & Gynecology
DX: R53.83 Other fatigue (principal)
CPT/HCPCS: 36415; 82306; 84443

== ENCOUNTER → 2023-05-07 | Outpatient (CLI) | payer BC, SELFPAY ==
--- NOTE | 2023-05-07 12:24 | BI_ITS ---
MAMMOGRAPHY - BILATERAL SCREENING REASON FOR EXAM: Female, 43 years old. Routine annual screening examination. PERTINENT HISTORY: Non-contributory. TECHNIQUE: Digital bilateral breast brenda (3D mammographic acquisition) in the CC and MLO projections. 2-D mediolateral oblique (MLO) and craniocaudad (CC) views of both breasts were obtained. CAD: Full Field Digital Mammography with Computer Added Detection was performed. COMPARISON: Comparison is made with prior study May 05, 2022. FINDINGS: Breast Composition: The breasts are almost entirely fatty. There are no dominant masses or suspicious calcifications. Stable benign-appearing bilateral axillary lymph nodes. No other significant abnormalities are identified. There has been no significant change since the prior study. BI/SCRN MAMM (CAD)W/BRENDA BILAT IMPRESSION: Stable bilateral screening mammogram. Yearly follow-up mammogram recommended. (A) ASSESSMENT CATEGORY: BIRADS Category 2: Benign. A letter regarding these results will be sent to the patient by the facility within 30 days. Approximately 10% of breast cancers are not detected by mammography. A normal mammogram should not delay biopsy of a clinically suspicious abnormality. [id number] Electronically Signed: Óscar Campbell MD at 9:31 EDT ,
== END | disposition home or self-care (01) ==
LOC: OPBI 12:24
PROVIDERS: Referring Provider Obstetrics & Gynecology; Visit Provider Obstetrics & Gynecology
DX: Z12.31 Encounter for screening mammogram for malignant neoplasm of breast (principal)
CPT/HCPCS: 77063; 77067